=== PATIENT | female | born 1950 | race Caucasian/White ===

== ENCOUNTER 2018-12-21 22:54 | Outpatient (REF) | payer MEDICARE, SELFPAY ==
[2018-12-29 18:47] LABS: Methylphenidate 235 ng/mL; Ritalinic Acid >10000 ng/mL
== END 2018-12-21 23:14 ==
LOC: LBN 22:54
PROVIDERS: PCP Nurse Practitioner Family; Visit Provider Nurse Practitioner Family
DX: F90.9 Attention-deficit hyperactivity disorder, unspecified type (principal); Z51.81 Encounter for therapeutic drug level monitoring
CPT/HCPCS: 80360

== ENCOUNTER 2019-03-30 20:13 | Outpatient (REF) | payer MEDICARE, SELFPAY ==
[2019-03-30 21:04] LABS: Calculated LDL 128 mg/dL (<100); Cholesterol 186 mg/dL (<200); HDL Cholesterol 48 mg/dL (40-60); Triglyceride 54 mg/dL (<150)
== END 2019-03-30 20:33 ==
LOC: NCHCN 20:13
PROVIDERS: PCP Nurse Practitioner Family; Visit Provider Nurse Practitioner Family
DX: Z13.6 Encounter for screening for cardiovascular disorders (principal)
CPT/HCPCS: 80061

== ENCOUNTER 2019-07-26 19:16 | Outpatient (REF) | payer MEDICARE, SELFPAY ==
[2019-07-26 19:52] LABS: Iron 34 ug/dL (50-170); Total Iron Binding Capacity 294 ug/dL (250-450); Transferrin Sat 12 % (15-50)
[2019-07-26 20:17] LABS: Vitamin B12 372 pg/mL (193-986)
[2019-07-26 20:25] LABS: Abs Immature Grans 0.05 k/cumm (0.0-0.09); Absolute Basophil Count 0.03 k/cumm (0.0-0.2); Absolute Eosinophil Count 0.19 k/cumm (0.0-0.7); Absolute Lymphocyte Count 3.12 k/cumm (1.2-3.4); Absolute Monocyte Count 0.61 k/cumm (0.11-0.7); Absolute Neutrophil Count 6.19 k/cumm (1.2-6.7); Basophils % 0.3; Eosinophils % 1.9; HCT 41.2 % (36.0-46.0); HGB 13.5 g/dL (12.0-15.5); Immature Grans % 0.5 %; Lymphocytes % 30.6; Mean Corp. HGB Concentration 32.8 g/dL (32.0-36.0); Mean Corpuscular Hemoglobin 29.3 pg (27.0-33.0); Mean Corpuscular Volume 89.4 fL (80-95); Mean Platelet Volume 10.4 fL (8.0-11.0); Neutrophils % 60.7; Platelet Count 343 x1000/uL (130-400); RBC 4.61 m/cumm (4.00-5.20); RBC Distribution Width 13.3 % (11.7-14.6); White Blood Cell Count 10.19 k/cumm (4.4-10.8)
== END 2019-07-26 19:36 ==
LOC: NCHCN 19:16
PROVIDERS: PCP Nurse Practitioner Family; Visit Provider Nurse Practitioner Family
DX: R06.02 Shortness of breath (principal); Z86.2 Personal history of diseases of the blood and blood-forming organs and certain disorders involving the immune mechanism
CPT/HCPCS: 82607; 83540; 83550; 85025

== ENCOUNTER 2020-04-06 21:00 | Outpatient (REF) | payer MEDICARE, SELFPAY ==
[2020-04-06 19:24] LABS: Abs Immature Grans 0.08 10^3/uL (0.0-0.06); Absolute Lymphocyte Count 2.53 10^3/uL (1.2-3.4); Absolute Neutrophil Count 6.64 10^3/uL (1.2-6.7); HGB 14.3 g/dL (11.2-15.7); Immature Grans % 0.8; Lymphocytes % 25.4; MCH 29.1 pg (27.0-33.0); MCHC 32.5 % (32.0-36.0); MCV 89.6 fL (80-95); MPV 10.3 fL (8.0-11.0); Neutrophils % 66.8; Nucleated RBC 0 %; Platelet Count 309 10^3/uL (130-400); RBC 4.91 10^6/uL (3.93-5.22); RDW 13.1 % (11.7-14.6); RDW-SD 42.7 fL; WBC 9.95 10^3/uL (4.4-10.8)
[2020-04-06 19:47] LABS: Iron 56 ug/dL (50-170); Total Iron Binding Capacity 304 ug/dL (250-450); Transferrin Sat 18 % (15-50)
[2020-04-06 19:58] LABS: ALT 21 U/L (14-59); AST 14 U/L (15-37); Albumin 3.7 g/dL (3.4-5.0); Alkaline Phosphatase 70 U/L (46-116); BUN 25 mg/dL (7-18); Bilirubin, Total 0.3 mg/dL (0.2-1.0); C-Reactive Protein 0.47 mg/dL (0.0-0.3); Calcium 9.3 mg/dL (8.5-10.1); Chloride 107 mmol/L (98-107); Ferritin 136 ng/mL (8-252); Glucose 105 mg/dL (74-106); Potassium 3.9 mmol/L (3.5-5.1); Sodium 143 mmol/L (136-145); TSH (W/Ref FT4) 1.44 uIU/mL (0.36-3.74); Total Protein 6.5 g/dL (6.4-8.2)
[2020-04-08 16:51] LABS: Rheumatoid Factor <8.6 IU/mL (<12.0)
[2020-04-09 14:40] LABS: ANA Interpretation Negative (Negative)
== END 2020-04-06 21:01 | disposition home or self-care (01) ==
LOC: NCHCN 21:00
PROVIDERS: PCP Nurse Practitioner Family; Visit Provider Physician Assistant
DX: M60.9 Myositis, unspecified (principal); R42 Dizziness and giddiness
CPT/HCPCS: 80053; 82728; 83540; 83550; 84443; 85025; 86038; 86140; 86431

== ENCOUNTER 2021-03-04 16:42 | Outpatient (REF) | payer MEDICARE, SELFPAY ==
[2021-03-04 20:53] LABS: Abs Immature Grans 0.04 10^3/uL (0.0-0.06); Absolute Basophil Count 0.03 10^3/uL (0.0-0.2); Absolute Eosinophil Count 0.24 10^3/uL (0.0-0.7); Absolute Lymphocyte Count 2.58 10^3/uL (1.2-3.4); Absolute Monocyte Count 0.53 10^3/uL (0.1-0.8); Absolute Neutrophil Count 4.03 10^3/uL (1.2-6.7); Basophils % 0.4; Eosinophils % 3.2; HCT 42.3 % (36.0-46.0); HGB 13.7 g/dL (11.2-15.7); Immature Grans % 0.5; Lymphocytes % 34.6; MCH 28.2 pg (27.0-33.0); MCHC 32.4 % (32.0-36.0); MCV 87.2 fL (80-95); MPV 10.4 fL (8.0-11.0); Monocytes % 7.1; Neutrophils % 54.2; Nucleated RBC 0 %; Platelet Count 276 10^3/uL (130-400); RBC 4.85 10^6/uL (3.93-5.22); RDW 13.1 % (11.7-14.6); RDW-SD 41.1 fL; WBC 7.45 10^3/uL (4.4-10.8)
[2021-03-04 20:54] LABS: Bilirubin Negative (Negative); Blood Negative (Negative); Clarity Clear (Clear); Glucose Negative (Negative); Ketones Negative (Negative); Leukocyte Esterase Negative (Negative); Nitrite Negative (Negative); Specific Gravity 1.025 (1.005-1.025); Urobilinogen 0.2 EU/dL (Up TO 0.2)
[2021-03-06 16:48] LABS: COVID-19 RT-PCR UVMMC Result Negative (Negative)
== END 2021-03-04 16:43 | disposition home or self-care (01) ==
LOC: NCHCN 16:42
PROVIDERS: PCP Physician Assistant; Visit Provider Nurse Practitioner Family
DX: R35.0 Frequency of micturition (principal); R30.0 Dysuria; R06.02 Shortness of breath; Z20.822 Contact with and (suspected) exposure to COVID-19
CPT/HCPCS: U0003; 81003; 85025; 87086

== ENCOUNTER → 2021-04-08 09:05 | Outpatient (BNVA) | payer MEDICARE, SELFPAY | PROVIDERS: PCP Physician Assistant; Referring Provider Physician Assistant; Visit Provider Nurse Practitioner Gerontology | DX: N20.0 Calculus of kidney (principal); R30.0 Dysuria; R33.9 Retention of urine, unspecified | CPT/HCPCS: 81003; 99205 ==

== ENCOUNTER 2021-04-17 11:09 | Outpatient (REF) | payer MEDICARE, SELFPAY ==
[2021-04-22 14:16] LABS: Source: Passed Stone
== END 2021-04-17 11:10 | disposition home or self-care (01) ==
LOC: LBN 11:09
PROVIDERS: PCP Physician Assistant; Visit Provider Nurse Practitioner Gerontology
DX: N20.0 Calculus of kidney (principal)
CPT/HCPCS: 82365

== ENCOUNTER 2021-04-26 17:49 | Outpatient (CLI) | payer MEDICARE, SELFPAY ==
--- NOTE | 2021-04-26 | DI.CT_ITS ---
Exam(s) CT CHEST PE CTA EXAM: CT CHEST PE CTA CLINICAL HISTORY: SOB R06.02 CHEST PAIN R07.89 COUGH. TECHNIQUE: Imaging Protocol: Axial CT angiography was performed with multi-slice acquisition and mu lti-planar and/or 3D reconstructions. CONTRAST MATERIAL: Intravenous: Omnipaque 350 Contrast volume:100 mL COMPARISON: No exams were available for comparison FINDINGS: Tracheobronchial tree: Patent where visualized. Pulmonary parenchyma: No consolidation or dominant measurable mass. No architectural distortion. Pulmonary Arteries: No evidence of filling defect to suggest pulmonary emboli. Mediastinum and Ashley: No dominant adenopathy or fluid collection. The esophagus is unremarkable. Visualized thyroid gland: There are surgical clips in the right thyroid bed which may reflect a parti al thyroidectomy. Please correlate clinically. Pleura: No effusion or pneumothorax. Heart: The heart is not dilated. No coronary artery calcifications are seen. No pericardial effusion. Aorta: Thoracic aorta non-dilated. No evidence of dissection. Upper abdomen: Gallstones. Soft tissues: Unremarkable. Bones: Within normal limits for the patient's age. IMPRESSION: No evidence of pulmonary embolism, thoracic aortic dissection or aneurysm. RADIATION DOSE DELIVERED: 513.12mGy.cm Total DLP DATA REPOSITORY: All CT scans at this facility are submitted to the National Radiology Data Registry (NRDR) Dose Index Registry (DIR) with the [employer] (ACR). RADIATION OPTIMIZATION: All CT scans at this facility use at least one of these dose optimization te chniques: automated exposure control; mA and/or kV adjustment per patient size (includes targeted exa ms where dose is matched to clinical indication); or iterative reconstruction.
[2021-04-26 16:42] LABS: CREATININE 0.9 mg/dL (0.55-1.02)
== END 2021-04-26 18:09 ==
PROVIDERS: PCP Physician Assistant; Visit Provider Physician Assistant
DX: R06.02 Shortness of breath (principal); R07.89 Other chest pain
CPT/HCPCS: 71275; 82565

== ENCOUNTER 2021-05-02 01:26 | Outpatient (CLI) | payer MEDICARE, SELFPAY ==
--- NOTE | 2021-05-02 08:00 | DI.US_ITS ---
Exam(s) US RENAL EXAM: US RENAL CLINICAL HISTORY: ? hydro, d/t elevated PVR; monitoring stones,retention of urine,r33,9,n20.9 TECHNIQUE: Ultrasound performed using standard protocol. COMPARISON: No exams were available for comparison FINDINGS: Kidneys are normal in size and shape. There is no evidence of right hydronephrosis or nephrolithiasi s. Left kidney shows no evidence of hydronephrosis. There is an incidental 12 millimeters simple cyst o f the upper pole of the kidney. There is also an 8 millimeter echogenic focus of the upper pole of t he left kidney with posterior acoustic shadowing and twinkle artifact, consistent with a nonobstructi ng stone. No additional stone seen. Urinary bladder is unremarkable in appearance with pre and post void urinary bladder volume 236 cc an d 89 cc respectively. Ureteral jets were seen bilaterally. IMPRESSION: No evidence of urinary tract obstruction. Nonobstructing left upper pole renal calculus. DATA REPOSITORY:
== END 2021-05-02 01:46 ==
PROVIDERS: PCP Physician Assistant; Visit Provider Nurse Practitioner Gerontology
DX: N20.0 Calculus of kidney (principal); R33.9 Retention of urine, unspecified
CPT/HCPCS: 76770

== ENCOUNTER → 2021-05-09 12:58 | Outpatient (BNVA) | payer MEDICARE, SELFPAY | PROVIDERS: PCP Physician Assistant; Referring Provider Physician Assistant; Visit Provider Nurse Practitioner Gerontology | DX: N20.0 Calculus of kidney (principal) | CPT/HCPCS: 99214 ==

== ENCOUNTER 2021-08-09 14:35 | Outpatient (REF) | payer MEDICARE, SELFPAY ==
[2021-08-09 12:57] LABS: Abs Immature Grans 0.05 10^3/uL (0.0-0.06); Absolute Basophil Count 0.06 10^3/uL (0.0-0.2); Absolute Eosinophil Count 0.27 10^3/uL (0.0-0.7); Absolute Lymphocyte Count 2.81 10^3/uL (1.2-3.4); Absolute Monocyte Count 0.49 10^3/uL (0.1-0.8); Absolute Neutrophil Count 4.17 10^3/uL (1.2-6.7); Basophils % 0.8; Eosinophils % 3.4; HCT 44.5 % (36.0-46.0); HGB 14.4 g/dL (11.2-15.7); Immature Grans % 0.6; Lymphocytes % 35.8; MCH 28.9 pg (27.0-33.0); MCHC 32.4 % (32.0-36.0); MCV 89 fL (80-95); MPV 10.1 fL (8.0-11.0); Monocytes % 6.2; Neutrophils % 53.2; Platelet Count 291 10^3/uL (130-400); RBC 4.98 10^6/uL (3.93-5.22); RDW 13.1 % (11.7-14.6); RDW-SD 42.7 fL; WBC 7.85 10^3/uL (4.4-10.8)
[2021-08-09 13:14] LABS: TSH (W/Ref FT4) 1.71 uIU/mL (0.36-3.74)
[2021-08-12 09:18] LABS: IgE 23 IU/mL (<158)
== END 2021-08-09 14:36 | disposition home or self-care (01) ==
LOC: LBN 14:35
PROVIDERS: PCP Physician Assistant; Visit Provider Student in an Organized Health Care Education/Training Program
DX: R53.83 Other fatigue (principal); J45.909 Unspecified asthma, uncomplicated
CPT/HCPCS: 82785; 84443; 85025

== ENCOUNTER 2021-09-02 03:37 | Outpatient (CLI) | payer MEDICARE, SELFPAY ==
[2021-09-02] MEDS: Albuterol HFA 18 GM 200 PUFF INH IH (09:56)
[2021-09-02] MEDS: Inhaler, Assist Device 1 EACH MC (09:56)
--- NOTE | 2021-09-02 11:26 | W.PFT ---
Date of service: 09/02/21 Time of Service: 08:02 Pulmonary Function Test Result Requesting Provider Jose C Indications: Asthma Interpretation Spirometry: There is no airflow limitation. There is a significant bronchodilator response. Lung Volumes: Lung volumes are normal. Diffusion Capacity: Normal diffusion. Airway Pressure: Normal airways resistance. Impression Normal pulmonary function testing with a significant bronchodilator response. This could be consistent with asthma in the correct clinical context. Clinical Correlation therefore is recommended.
== END 2021-09-02 03:38 | disposition home or self-care (01) ==
LOC: RT 03:37
PROVIDERS: PCP Physician Assistant; Visit Provider Student in an Organized Health Care Education/Training Program
DX: J45.998 Other asthma (principal); R07.89 Other chest pain; R05.9 Cough, unspecified; Z87.891 Personal history of nicotine dependence; Z77.090 Contact with and (suspected) exposure to asbestos
CPT/HCPCS: 94060; 94726; 94729

== ENCOUNTER 2021-09-05 09:01 | Outpatient (REF) | payer MEDICARE, SELFPAY ==
[2021-09-05 21:01] LABS: ALT 30 U/L (14-59); AST 14 U/L (15-37); Alkaline Phosphatase 61 U/L (46-116); Anion Gap 9.1 mmol/L (3-11); BUN 19 mg/dL (7-18); Bilirubin, Total 0.5 mg/dL (0.2-1.0); CO2 26.9 mmol/L (21.0-32.0); CREATININE 0.9 mg/dL (0.55-1.02); Calcium 8.9 mg/dL (8.5-10.1); Chloride 108 mmol/L (98-107); Glucose 125 mg/dL (74-106); LDL CHOLESTEROL 74 mg/dL (<100); Potassium 3.7 mmol/L (3.5-5.1); Sodium 144 mmol/L (136-145); Total Protein 6.9 g/dL (6.4-8.2)
[2021-09-05 21:07] LABS: Hemoglobin A1C 5.8 % (<5.7)
== END 2021-09-05 09:02 | disposition home or self-care (01) ==
LOC: NCHCN 09:01
PROVIDERS: PCP Physician Assistant; Visit Provider Physician Assistant
DX: I10 Essential (primary) hypertension (principal); E78.5 Hyperlipidemia, unspecified; R73.03 Prediabetes
CPT/HCPCS: 80053; 83721; 83036

== ENCOUNTER → 2021-10-30 02:56 | Outpatient (CLI) | payer MEDICARE, SELFPAY ==
--- NOTE | 2021-10-30 07:15 | DI.US_ITS ---
Exam(s) US RENAL EXAM: US RENAL CLINICAL HISTORY: monitoring left renal stone, N20.0 NEPHROLITHIAISIS. TECHNIQUE: Merlos scale, color and spectral Doppler were used. COMPARISON: US US RENAL from 05/02/2021 FINDINGS: Renal size in cm: Right: 11.6. Left: 11.4. Echogenicity: Normal. Hydronephrosis: No. Cyst or mass: No. Nephrolithiasis: There is an echogenic 6 mm focus in the superior pole of the left kidney. Other findings: None. Bladder:Normal. Ureteral jets: Right: Not visualized on this examination. Left: Not visualized on this examination. Prevoid vol:151 cc Postvoid vol:94 cc Renal color flow: Symmetric and within normal limits. IMPRESSION: 1. Stable nonobstructing left upper pole renal calculus. 2. Moderate size postvoid urinary bladder volume. DATA REPOSITORY:
== END ==
PROVIDERS: PCP Physician Assistant; Visit Provider Nurse Practitioner Gerontology
DX: N20.0 Calculus of kidney (principal)
CPT/HCPCS: 76770

== ENCOUNTER → 2021-11-06 09:23 | Outpatient (BNVA) | payer MEDICARE, SELFPAY | PROVIDERS: PCP Physician Assistant; Referring Provider Physician Assistant; Visit Provider Nurse Practitioner Gerontology | DX: R33.8 Other retention of urine (principal); R35.1 Nocturia; N20.0 Calculus of kidney; R35.0 Frequency of micturition | CPT/HCPCS: 81003; 99214 ==

== ENCOUNTER 2021-11-06 20:05 | Outpatient (REF) | payer MEDICARE, SELFPAY | END 2021-11-06 20:06 | disposition home or self-care (01) | LOC: LBN 20:05 | PROVIDERS: PCP Physician Assistant; Visit Provider Nurse Practitioner Gerontology | DX: N39.0 Urinary tract infection, site not specified (principal) | CPT/HCPCS: 87086 ==

== ENCOUNTER 2021-11-07 15:35 | Outpatient (REF) | payer MEDICARE, SELFPAY ==
[2021-11-07 20:24] LABS: NT-proBNP 120 pg/mL (<300); Troponin I < 50 ng/L (<or=60)
== END 2021-11-07 15:36 | disposition home or self-care (01) ==
LOC: NCHCN 15:35
PROVIDERS: PCP Physician Assistant; Visit Provider Physician Assistant
DX: R06.09 Other forms of dyspnea (principal)
CPT/HCPCS: 83880; 84484

== ENCOUNTER 2022-04-29 02:16 | Outpatient (CLI) | payer MEDICARE, SELFPAY ==
--- NOTE | 2022-04-29 06:30 | DI.US_ITS ---
Exam(s) US RENAL EXAM: US RENAL CLINICAL HISTORY: monitoring hydro,urine retention,lt calculi,r33.9,n20.0 TECHNIQUE: Ultrasound of both kidneys performed using standard protocol. COMPARISON: CT CT CHEST PE CTA from 04/26/2021 US US RENAL from 10/30/2021 FINDINGS: RIGHT KIDNEY: Measures 11.3 cm in length. There is a small 1.6 x 1.5 cm cyst towards the upper pole. No echogenic calculi. No hydronephrosis. Cortical thickness is normal. Normal cortical thickness and corticomed ullary differentiation .No solid masses No intrarenal calculi nor hydronephrosis. LEFT KIDNEY: Measures 10.6 cm in length. There is a 1.7 x 1.4 cm cyst in the lower pole left kidney. There is al so a 6 millimeter echogenic nonobstructive calculus in the upper pole calyx and a 7 millimeter nonobs tructive calculus in a mid lower calyx evident. Cortical thickness normal. No perinephric fluid. N o solid masses. URINARY BLADDER: Prevoid volume is 158 cc Postvoid volume is 75 cc No evidence of bladder mass nor diverticuli. Ureterovesical jets: Both identified and appear symmetrical IMPRESSION: 1. Small cysts both kidneys. There are 2 nonobstructive calculi in left kidney superior and inferio r pole measuring 6 and 7 millimeters, respectively. No obstruction. No calculi nor obvious masses i n the urinary bladder. 2. Incidentally noted is a benign in the liver which measures 3.5 x 3.7 cm.. DATA REPOSITORY:
== END 2022-04-29 02:36 ==
LOC: DI 02:17
PROVIDERS: PCP Physician Assistant; Visit Provider Nurse Practitioner Gerontology
DX: N20.0 Calculus of kidney (principal); R33.9 Retention of urine, unspecified; N28.1 Cyst of kidney, acquired
CPT/HCPCS: 76770

== ENCOUNTER → 2022-05-06 08:33 | Outpatient (BNVA) | payer MEDICARE, SELFPAY | PROVIDERS: PCP Physician Assistant; Visit Provider Nurse Practitioner Gerontology | DX: R33.9 Retention of urine, unspecified (principal); N20.0 Calculus of kidney | CPT/HCPCS: 99214 ==

== ENCOUNTER 2022-09-03 16:39 | Outpatient (REF) | payer MEDICARE, SELFPAY ==
[2022-09-03 20:25] LABS: ESR 14 mm/hr (0-30)
[2022-09-03 20:26] LABS: Abs Immature Grans 0.04 10^3/uL (0.0-0.06); Absolute Basophil Count 0.04 10^3/uL (0.0-0.2); Absolute Eosinophil Count 0.11 10^3/uL (0.0-0.7); Absolute Lymphocyte Count 2.83 10^3/uL (1.2-3.4); Absolute Monocyte Count 0.68 10^3/uL (0.1-0.8); Absolute Neutrophil Count 6.24 10^3/uL (1.2-6.7); Basophils % 0.4; Eosinophils % 1.1; HCT 44.1 % (36.0-46.0); HGB 14.4 g/dL (11.2-15.7); Immature Grans % 0.4; Lymphocytes % 28.5; MCH 29.3 pg (27.0-33.0); MCHC 32.7 % (32.0-36.0); MCV 90 fL (80-95); Monocytes % 6.8; Neutrophils % 62.8; Platelet Count 289 10^3/uL (130-400); RBC 4.91 10^6/uL (3.93-5.22); RDW-SD 42.6 fL; WBC 9.94 10^3/uL (4.4-10.8)
[2022-09-03 20:50] LABS: Hemoglobin A1C 5.5 % (<5.7)
[2022-09-03 21:03] LABS: ALT 21 U/L (14-59); AST 20 U/L (15-37); Albumin 3.8 g/dL (3.4-5.0); Alkaline Phosphatase 82 U/L (46-116); Anion Gap 9.6 mmol/L (3-11); BUN 17 mg/dL (7-18); Bilirubin, Total 0.3 mg/dL (0.2-1.0); C-Reactive Protein 0.62 mg/dL (0.0-0.3); CO2 26.4 mmol/L (21.0-32.0); CREATININE 1.1 mg/dL (0.55-1.02); Calcium 9.3 mg/dL (8.5-10.1); Chloride 109 mmol/L (98-107); Estimated GFR 54.39 (mL/min/1.73m2); Glucose 103 mg/dL (74-106); Magnesium 2.3 mg/dL (1.8-2.4); Sodium 145 mmol/L (136-145); TSH (W/Ref FT4) 3.03 uIU/mL (0.36-3.74); Total Protein 7.1 g/dL (6.4-8.2)
== END 2022-09-03 16:40 | disposition home or self-care (01) ==
LOC: NCHCN 16:39
PROVIDERS: PCP Physician Assistant; Visit Provider Physician Assistant
DX: K52.9 Noninfective gastroenteritis and colitis, unspecified (principal); R25.1 Tremor, unspecified; R26.89 Other abnormalities of gait and mobility; M79.18 Myalgia, other site; E07.89 Other specified disorders of thyroid; R73.03 Prediabetes
CPT/HCPCS: 80053; 85652; 83036; 83735; 84443; 85025; 86140

== ENCOUNTER → 2022-12-17 01:10 | Outpatient (CLI) | payer MEDICARE, SELFPAY ==
--- NOTE | 2022-12-17 07:45 | DI.US_ITS ---
Exam(s) US RENAL EXAM: US RENAL CLINICAL HISTORY: monitoring left renal calculi,nephrolithiasis,n20.0,r33.9,urine retention TECHNIQUE: Ultrasound of both kidneys performed using standard protocol. COMPARISON: US US RENAL from 04/29/2022 FINDINGS: RIGHT KIDNEY: Measures 10.8 cm in length. No cysts evident. Normal cortical thickness and corticomedullary differen tiation .No solid masses No intrarenal calculi nor hydronephrosis. LEFT KIDNEY: Measures 10.7 cm in length. There is a 1.4 x 1.2 cm cyst in the in inferior pole of the left kidney. Normal cortical thickness and corticomedullary differentiaion. No solids masses. There is a 9 mill imeter hyperechoic focus in the mid-upper pole region consistent with nonobstructive calculus. URINARY BLADDER: Prevoid volume is 370 cc Postvoid volume is 166 cc No evidence of bladder mass nor diverticuli. Ureterovesical jets: Both not well visualized Incidental finding: There is a cyst in the right hepatic lobe which measures 3.6 x 3.2 cm. IMPRESSION: 1. No significant findings in the right kidney. 2. Nonobstructive 9 mm calculus in the mid-upper pole region of the left kidney. There is a small b enign cyst in the inferior pole the left kidney also noted.. No solid renal masses. 3. No bladder masses evident. Postvoid volume is 166 cc. 4. Incidentally noted is a cyst in the right hepatic lobe measuring 3.6 x 3.2 cm. DATA REPOSITORY:
== END ==
PROVIDERS: PCP Physician Assistant; Visit Provider Nurse Practitioner Gerontology
DX: N20.0 Calculus of kidney (principal); R33.8 Other retention of urine; R35.0 Frequency of micturition; N39.0 Urinary tract infection, site not specified
CPT/HCPCS: 76770; 99442

== ENCOUNTER → 2022-12-29 07:47 | Outpatient (BNVA) | payer MEDICARE, SELFPAY | PROVIDERS: PCP Physician Assistant; Referring Provider Physician Assistant; Visit Provider Physician Assistant Surgical | DX: J45.909 Unspecified asthma, uncomplicated (principal); Z79.51 Long term (current) use of inhaled steroids | CPT/HCPCS: 99443 ==

== ENCOUNTER 2023-01-05 07:47 | Day surgery (SDC) | payer MEDICARE, SELFPAY ==
[2023-01-05] VITALS (15 sets, daily range): BP systolic 111–184; BP diastolic 68–109; PULSE 67–97; RESP 10–25; TEMP 36.2–36.9; O2SAT 86–99; BMI 34.2
[2023-01-05] MEDS: Lactated Ringers 1,000 ML 80 ML IV ×2 (09:11→20:35)
--- NOTE | 2023-01-05 09:56 | W.ANESPRE ---
General Info Date of Service Date Performed: 01/05/23 Height: 5 ft 10 in Weight: 108.2 kg Body Mass Index (BMI): 34.2 Surgical Procedure: Operation Date: 01/05/23 11:10 Proposed Procedure Side Surgeon p Cystoscopy/Retrograde/Ureteroscopy/Stone Manipulation/ ? Stent Tom Orozco MD Meds Allergies and Home Medications Allergies Allergy/AdvReac Type Severity Reaction Status Date / Time prednisone Allergy Unknown Verified 01/05/23 08:24 adhesive tape Allergy Unverified 01/05/23 08:24 cephalexin Allergy Unverified 01/05/23 08:24 gentamicin Allergy Unverified 01/05/23 08:24 hydrogen peroxide Allergy Unverified 01/05/23 08:24 nitrofurantoin Allergy Unverified 01/05/23 08:24 [From Macrodantin] sulfamethoxazole Allergy Unverified 01/05/23 08:24 [From Bactrim] trimethoprim [From Bactrim] Allergy Unverified 01/05/23 08:24 moderna vaccine Allergy Severe Uncoded 01/05/23 08:24 Home Medication Medication Instructions Recorded aspirin 81 mg tablet,delayed 81 mg PO DAILY 03/06/21 release (Adult Aspirin Regimen) epinephrine 0.3 mg/0.3 mL 0.3 mg IM Q4H PRN 03/06/21 injection, auto-injector (EpiPen) norethindrone (contraceptive) 0.35 2.5 mg PO .5xweek 04/08/21 mg tablet dupilumab 300 mg/2 mL subcutaneous 600 mg (4 mL) subcut ONCE #4 mL 12/25/21 pen injector (Dupixent) dupilumab 300 mg/2 mL subcutaneous 300 mg (2 mL) subcut Q2W #12 mL 01/28/22 pen injector (Dupixent) cetirizine 10 mg capsule (All Day 10 mg PO BID 09/11/22 Allergy (cetirizine)) iodine 150 mcg tablet 150 mcg PO DAILY 09/11/22 polysaccharide iron complex 150 mg 150 mg PO .4 a day 09/11/22 iron capsule budesonide-formoterol HFA 80 1 inh inhalation BID #10.2 grams 12/29/22 mcg-4.5 mcg/actuation aerosol inhaler (Symbicort) indomethacin 25 mg capsule 25 mg PO BID PRN 12/29/22 magnesium glycinate 100 mg tablet 1,000 mg PO BID 12/29/22 Current Visit Medications: Current Medications Generic Name Dose Route Start Last Admin Trade Name Sameer PRN Reason Stop Dose Admin Ringer's Solution 1,000 mls @ 80 mls/hr 01/05/23 06:00 01/05/23 09:11 IV 01/05/23 23:59 80 mls/hr INFUSION ALON Administration Ciprofloxacin 400 mg in 200 mls @ 200 mls/hr 01/05/23 06:00 Cipro I.V. IVPB 01/05/23 16:00 PREOP ALON IV Miscellaneous Supplies 1 each 01/05/23 06:00 Iv Access IV 01/05/23 23:59 DIRECTED ALON Sodium Chloride 0 ml 01/05/23 06:00 Normal Saline Flush 10 Ml Syr IV 01/05/23 23:59 PRN PRN Sodium Chloride 0 ml 01/05/23 06:00 Normal Saline 10 Ml Vial IJ 01/05/23 23:59 DIRECTED PRN Sterile Water 0 ml 01/05/23 06:00 Water,Injection,Sterile 10 Ml Vial IJ 01/05/23 23:59 DIRECTED PRN PFSH Active Problems Active Problems: Problem Status Onset Code Fatigue R53.83 Muscle cramping R25.2 Retention of urine R33.9 Allergic rhinitis due to pollen J30.1 Chest pain R07.9 Cough R05.9 Allergic asthma J45.909 Nephrolithiasis N20.0 Environmental allergies Z91.09 Medical History Medical History (Updated 01/02/23 @ 10:29 by Denny Baron) Osteoarthritis ADHD Pt. denies Hypomagnesemia Heart murmur Anemia Liver nodule Onychomycosis Vertigo Resting tremor Arthralgia Prediabetes HTN (hypertension) HLD (hyperlipidemia) Hot flashes SOB (shortness of breath) Dysuria Urinary frequency Dysfunctional voiding of urine Cholelithiasis pt. denies Disc degeneration Surgical History Surgical History (Updated 01/05/23 @ 08:22 by Live Gordillo) History of appendectomy History of lobectomy of thyroid Tobacco Smoking/Tobacco Use Status: Former Tobacco Use Alcohol Alcohol Intake: never Substance Use Substance use: Never Substance use type: does not use Vital Signs and Lab Results Vital Signs Most Recent Vital Signs in EMR: Most Recent Vital Signs Temp Pulse Resp BP Pulse Ox 36.4 C L 97 H 16 145/98 H 99 01/05/23 08:25 01/05/23 08:25 01/05/23 08:25 01/05/23 08:25 01/05/23 08:25 Lab Results Blood Type / Crossmatch: No Data to Display Complete Blood Count: No Data to Display Complete Metabolic Panel: No Data to Display Liver Function Panel: No Data to Display Coagulation Panel: No Data to Display Cardiac Panel: No Data to Display Arterial Blood Gas: No Data to Display Venous Blood Gas: No Data to Display Pancreas Panel: No Data to Display Thyroid Panel: No Data to Display Infectious Disease: No Data to Display Blood Cultures: No Data to Display Toxicology Panel: No Data to Display Imaging and Studies Imaging and Studies Study information below may be from another EMR and interpreted by another provider. Please see original notes in EMR for more complete details. Stress Test Summary: 11/14: negative stress echo. LVEF 65%, mild to moderate diastolic dysfunction. mild . Pulmonary Function Summary: 09/13: normal PFTs. Anesthesia Assessment and Plan Anesthesia History Personal History: No History of Anesthesia Complications Family History: No Family History of Anesthesia Complications Exercise Tolerance Exercise Tolerance: Metabolic Equivalents>4 Cardiac & Pulmonary Exam Cardiac Exam: Normal S1/S2 Heart Sounds Pulmonary Exam: Clear Bilateral Breath Sounds Implantable Cardiac Device Does patient have a Pacemaker or an ICD?: No Airway Exam Known Difficult Airway: No Mallampati Class: 3 Mouth Opening: Normal (> 3cm) Thyromental Distance: Greater than 3 cm Neck Range of Motion: Full ROM Neck Circumference: Normal Teeth Condition: Normal Dentition ASA Classification ASA Score: ASA 2 Emergency Case?: No NPO Status NPO Status: NPO Clears >2 hours, Solids >8 hours Anesthesia Plan Resuscitation Status: Full Code Anesthesia Technique: General Anesthesia Airway Planned: LMA Monitors Used: Standard Monitors Preoperative Comments:: 72 yo female for cysto, stones. Sig PMHx: HTN, severe allergic asthma/eosinophil asthma (Symbicort, dupilumab - has been very well controlled with this on board), ADHD (denies), preDM (09/14 A1c 5.5), vertigo. former smoker, never EtOh. denies GERD
--- NOTE | 2023-01-05 11:12 | W.PM.HP.N ---
Date of service: 01/05/23 Time of Service: 11:12 Assessment and Plan Assessment and plan (1) Nephrolithiasis: Status: Chronic Assessment and plan: We will plan to do left ureteroscopy with holmium laser lithotripsy of her stone. History of Present Illness History of Present Illness Chief Complaint: Kidney stone Narrative: This is a 72-year-old woman who has a history of a left kidney stone. She is not having flank pain, but we have been monitoring her stones radiographically. Her stone is increased in size and she is elected to move ahead with ureteroscopy and holmium laser lithotripsy of her stone. She has not seen any gross hematuria. She has no dysuria, fevers or chills. Review of Systems Narrative: No fevers or chills Allergic rhinitis. No vision change or dysphasia No diabetes or thyroid No shortness of breath, cough or hemoptysis No chest pain or palpitations No nausea, vomiting, hepatitis, ulcers, jaundice, diarrhea or constipation No seizures, strokes or peripheral neuropathy No bleeding disorders or anemia No gout PFSH All Active Problems (Updated 01/02/23 @ 10:29 by Denny Baron) Fatigue (Acute) Muscle cramping (Acute) Retention of urine (Acute) Allergic rhinitis due to pollen (Acute) Chest pain (Acute) Cough (Acute) Allergic asthma (Acute) Nephrolithiasis (Chronic) Environmental allergies (Acute) Medical History (Updated 01/02/23 @ 10:29 by Denny Baron) Osteoarthritis ADHD Pt. denies Hypomagnesemia Heart murmur Anemia Liver nodule Onychomycosis Vertigo Resting tremor Arthralgia Prediabetes HTN (hypertension) HLD (hyperlipidemia) Hot flashes SOB (shortness of breath) Dysuria Urinary frequency Dysfunctional voiding of urine Cholelithiasis pt. denies Disc degeneration Surgical History (Updated 01/05/23 @ 08:22 by Live Gordillo) History of appendectomy History of lobectomy of thyroid Social History Smoking/Tobacco Use Status: Former Tobacco Use Quit Date: 02/23/79 Smoking risk assessment performed?: Yes Alcohol Intake: never Drug use: Never Substance use type: does not use Housing: house Do you feel safe at home: Yes Do you feel safe in your relationship?: Yes Meds Allergies and Home Medications Allergies Allergy/AdvReac Type Severity Reaction Status Date / Time prednisone Allergy Unknown Verified 01/05/23 08:24 adhesive tape Allergy Unverified 01/05/23 08:24 cephalexin Allergy Unverified 01/05/23 08:24 gentamicin Allergy Unverified 01/05/23 08:24 hydrogen peroxide Allergy Unverified 01/05/23 08:24 nitrofurantoin Allergy Unverified 01/05/23 08:24 [From Macrodantin] sulfamethoxazole Allergy Unverified 01/05/23 08:24 [From Bactrim] trimethoprim [From Bactrim] Allergy Unverified 01/05/23 08:24 moderna vaccine Allergy Severe Uncoded 01/05/23 08:24 Home Medications Medication Instructions Recorded Confirmed Type aspirin 81 mg tablet,delayed 81 mg PO DAILY 03/06/21 01/02/23 History release (Adult Aspirin Regimen) epinephrine 0.3 mg/0.3 mL 0.3 mg IM Q4H PRN 03/06/21 01/02/23 History injection, auto-injector (EpiPen) norethindrone (contraceptive) 0.35 2.5 mg PO .5xweek 04/08/21 01/02/23 History mg tablet dupilumab 300 mg/2 mL subcutaneous 600 mg (4 mL) subcut ONCE #4 mL 12/25/21 01/02/23 Rx pen injector (Dupixent) dupilumab 300 mg/2 mL subcutaneous 300 mg (2 mL) subcut Q2W #12 mL 01/28/22 12/29/22 Rx pen injector (Dupixent) cetirizine 10 mg capsule (All Day 10 mg PO BID 09/11/22 01/02/23 History Allergy (cetirizine)) iodine 150 mcg tablet 150 mcg PO DAILY 09/11/22 01/02/23 History polysaccharide iron complex 150 mg 150 mg PO .4 a day 09/11/22 01/02/23 History iron capsule budesonide-formoterol HFA 80 1 inh inhalation BID #10.2 grams 12/29/22 01/02/23 Rx mcg-4.5 mcg/actuation aerosol inhaler (Symbicort) indomethacin 25 mg capsule 25 mg PO BID PRN 12/29/22 01/02/23 History magnesium glycinate 100 mg tablet 1,000 mg PO BID 12/29/22 01/02/23 History Exam Const General: cooperative Neck Neck: supple Resp Effort & Inspection: normal respiratory effort Auscultation: clear to auscultation bilaterally Cardio Rate: regular rate Rhythm: regular rhythm GI Palpation: soft and no masses Neuro General: patient alert, patient awake and patient oriented x3 Results Last Vital Signs Temp 36.4 C L 01/05/23 08:25 Pulse 97 H 01/05/23 08:25 Resp 16 01/05/23 08:25 BP 145/98 H 01/05/23 08:25 Pulse Ox 99 01/05/23 08:25 Time Spent Time spent with Patient: <40 minutes Time was spent: other
[2023-01-05] MEDS: levoFLOXacin 500 MG TAB PO (11:42)
[2023-01-05] MEDS: Lidocaine 2% Jelly 6 ML SYR (12:08)
[2023-01-05] MEDS: Omnipaque 300 MG/ML 50 ML BTL (12:25)
--- NOTE | 2023-01-05 12:25 | DI.RAD_ITS ---
Exam(s) XR RETROGRADE IN OR EXAM: XR RETROGRADE IN OR CLINICAL HISTORY: Nephrolithiasis. TECHNIQUE: 2D digital imaging was performed. COMPARISON: No exams were available for comparison FINDINGS: Fluoroscopy provided during retrograde procedure left kidney and placement of a left ureteral stent. See procedure report for details. Total fluoroscopy time 35 seconds IMPRESSION: Radiation exposure index/cumulative dose: betty Coughlin= 9.6745 mGy DATA REPOSITORY: RADIATION DOSE DELIVERED:
--- NOTE | 2023-01-05 12:29 | ROE_ITS ---
Date of service: 01/05/23 Time of Service: 12:29 Operative Note Operative Note DATE OF PROCEDURE: 01/05/23 PRE-OP DIAGNOSIS: Left kidney stone PROCEDURE: cystoscopy, left retrograde pyelogram, left flexible ureteroscopy with holmium laser lithotripsy, extraction of stone fragments, insert left ureteral stent SURGEON: Tom Orozco ANESTHESIA TYPE: General LMA/ETT Refer to Anesthesia Record ESTIMATED BLOOD LOSS: 0 PATHOLOGY: other (kidney stone for chemical analysis) COMPLICATIONS: None Patient was transported to: PACU Patient's condition: stable Implants: 4.8 Indonesian by 22 to 30 cm left ureteral stent Indications: This is a 72-year-old woman who has a history of a left kidney stone. The stone has been increasing in size and she presents now for stone manipulation. Findings: stone in left upper pole calyx Procedure Description: The patient was given preoperative oral antibiotics and brought to the operating room on 01/05/2023. After successful induction of general anesthesia, she was placed in the dorsal lithotomy position. Her genitalia was prepped and draped sterilely. 2% Xylocaine jelly was instilled into the urethra to act as a local anesthetic. A 22 Indonesian rigid cystoscope was passed through the urethra into the bladder. The bladder was inspected with a 30 degree lens. Both ureteral orifices appeared normal with no blood coming from either side. The left orifice was cannulated with a 5 Indonesian access catheter. Retrograde pyelogram was obtained by injecting Omnipaque through the access catheter under fluoroscopic guidance. There appeared to be a nonobstructing filling defect in the left upper pole. A guidewire was passed through the lumen of the catheter and the catheter was removed leaving the wire in place. A dual-lumen catheter was then positioned and a second wire was placed. We chose one of the wires as a working wire and the other as a safety wire. The ureteral access sheath was advanced over the working wire. The tip of the sheath was placed in the proximal left ureter. Flexible ureteroscopy was then performed and we visualized a stone in the upper pole calyx. The stone was treated with a 272 ?m holmium laser fiber. The power setting at the stone was 0.8 and the rate was 8. The stone fragmented quite nicely. I was then able to grasp multiple fragments and extract them. The stone fragments were sent to pathology for chemical analysis. At the completion of the procedure, there were no stone fragments larger than the size of the safety wire. We elected to place a ureteral stent. We removed the access sheath and passed a 4.8 Indonesian variable length stent over the wire. We position the proximal end in the renal pelvis and the distal end within the bladder. We left the safety string attached and brought the string through the urethra. We tucked the end of the string into the patient's vaginal cavity. The patient tolerated this procedure well with no complications.
[2023-01-05] MEDS: fentaNYL 100 MCG/2 ML VIAL IVP ×3 (12:59→13:37)
[2023-01-05] MEDS: Ketorolac 15 MG/ML VIAL IVP (13:30)
--- NOTE | 2023-01-05 13:35 | W.ANESPOSTOP ---
Postoperative Evaluation Date, Time and Location Date Performed: 01/05/23 Time Performed: 13:35 Patient Location: PACU Vital Signs Most Recent Imported Vital Signs: Most Recent Vital Signs Temp Pulse Resp BP Pulse Ox 36.5 C 70 11 L 173/93 H 95 01/05/23 13:12 01/05/23 13:12 01/05/23 13:12 01/05/23 13:12 01/05/23 13:12 Pain Score Most Recent Pain Score: Most Recent Pain Score Pain Level 7 01/05/23 13:12 Assessment Mental Status: Awake (Alert & Oriented to Patient Baseline) Airway and Respiratory Function: Patent airway with normal (patient baseline) respiratory exam Cardiovascular Function: Hemodynamically Stable Hydration Status: Adequately Hydrated Nausea & Vomiting: No Nausea or Vomiting Pain: Pain is tolerable per patient Peripheral Nerve Block: Patient did not receive a nerve block
[2023-01-05] MEDS: Acetaminophen 325 MG TAB 650 MG PO ×2 (15:06→19:08)
[2023-01-05] MEDS: Oxybutynin 5 MG TAB PO ×2 (15:06→23:21)
[2023-01-05] MEDS: Tamsulosin 0.4 MG CAPCR PO (16:29)
[2023-01-05] MEDS: Budesonide/Formoterol 80/4.5 6.9 GM 60 PUFF INH IH (18:30)
[2023-01-06] MEDS: Acetaminophen 325 MG TAB 650 MG PO (06:12)
--- NOTE | 2023-01-06 07:15 | W.PM.PROGNOT ---
Date of Service Date of service: 01/06/23 Time of Service: 07:16 Assessment and Plan Assessment and plan (1) Nephrolithiasis: Status: Chronic Assessment and plan: She is ready for discharge. We will send her home with prescriptions for oral ketorolac and oxybutynin. She will follow-up later this week for stent removal. I will then see her in 6 to 8 weeks for a renal ultrasound and to discuss her stone composition. Subjective Subjective Interval history since last seen: She required some narcotic analgesics overnight. She is feeling better this morning. She does have some ureteral spasms but they were well controlled with oxybutynin. Exam Narrative Exam Narrative: She appears comfortable Her vital signs are documented elsewhere She is awake and alert Objective Last Vital Signs Temp 36.7 C 01/05/23 23:20 Pulse 74 01/05/23 23:20 Resp 18 01/05/23 23:20 BP 125/72 01/05/23 23:20 Pulse Ox 94 01/05/23 23:20 Time Spent with Patient Time Spent with Patient: <25 minutes Time was spent: other
[2023-01-06 07:16] VITALS: BP 124/56; PULSE 76; RESP 18; TEMP 36.7; O2SAT 97
--- NOTE | 2023-01-06 07:18 | W.PM.DS.N ---
Date of service: 01/06/23 Time of Service: 07:18 DS: Diagnosis Discharge Diagnosis (1) Nephrolithiasis: Status: Chronic Discharge Plan Disposition Patient Disposition: Home Condition: Stable Discharge Details Reason For Visit: ureteroscopy Attending Provider: Tom Orozco Primary Care Provider: Lidia Clay Home Meds and New Rx's Prescriptions: New oxybutynin chloride 5 mg tablet 5 mg PO TID PRN (Reason: spasm) Qty: 15 0RF ketorolac 10 mg tablet 10 mg PO Q8H PRN (Reason: pain) 3 Days Qty: 9 0RF Rx Instructions: do not take with indomethacin or other NSAIDS No Action polysaccharide iron complex 150 mg iron capsule 150 mg PO .4 a day iodine 150 mcg tablet 150 mcg PO DAILY All Day Allergy (cetirizine) 10 mg capsule 10 mg PO BID budesonide-formoterol [Symbicort] 80-4.5 mcg/actuation HFA aerosol inhaler 1 inh inhalation BID Qty: 10.2 6RF Rx Instructions: To use as SMART therapy. up to 6 doses (12 puffs) a day indomethacin 25 mg capsule 25 mg PO BID PRN Rx Instructions: administer with food or milk epinephrine [EpiPen] 0.3 mg/0.3 mL auto-injector 0.3 mg IM Q4H PRN aspirin [Adult Aspirin Regimen] 81 mg tablet,delayed release (DR/EC) 81 mg PO DAILY Dupixent Pen 300 mg/2 mL pen injector 600 mg subcut ONCE Qty: 4 0RF Dupixent Pen 300 mg/2 mL pen injector 300 mg subcut Q2W Qty: 12 4RF magnesium glycinate 100 mg tablet 1,000 mg PO BID norethindrone acetate 5 mg tablet 2.5 mg PO .5 times a week Patient Comments: TAKE 1/2 TABLET BY MOUTH 5 TIMES A WEEK Discharge Instructions Additional Instructions: No need to strain the urine Follow-up later this week for stent removal-please let my office know that there is a string on the patient's stent Follow-up appointment in my office in 6 to 8 weeks with a renal ultrasound to be done in the office. Activity:: Activity as Tolerated Shower/Bathe:: 24 hours Diet:: As Tolerated Discharge Orders Discharge Orders: Discharge Order (Routine); Ordered 01/06/23 Ordered By: Tom Orozco DS: Summary Time Spent with Patient providing and/or coordinating discharge services: Less than 30 minutes Status at Discharge Functional status at discharge: independent ambulation Overall status at discharge: patient is back to baseline Mental Status: mental status grossly normal Speech and Movement: speech and movement normal Mood: congruent mood Affect: normal affect Exam Narrative Exam Narrative: On the morning of disc charge, the patient looked well Her vital signs are documented elsewhere in the chart Her chest wall motion is normal. She is not short of breath at rest. Her abdomen is soft with no guarding or rebound tenderness She is awake and alert. Psych Mental Status: mental status grossly normal Speech and Movement: speech and movement normal Mood: congruent mood Affect: normal affect DS: Data Vitals/I&O Vitals and I&O: Vital Signs Temperature 36.7 C 01/05/23 23:20 Temperature Source Tympanic 01/05/23 23:20 Pulse 74 01/05/23 23:20 Pulse Rhythm Regular 01/05/23 22:22 Respiratory Rate 18 01/05/23 23:20 Respiratory Effort Normal, Non-Labored 01/05/23 22:22 Respiratory Depth Normal 01/05/23 22:22 Respiratory Pattern Normal 01/05/23 22:22 Blood Pressure 125/72 01/05/23 23:20 Pulse Oximetry 94 01/05/23 23:20 Respiratory End-tidal CO2 41 01/05/23 13:53 Oxygen Delivery Method Room Air 01/05/23 23:20 Oxygen Flow Rate 0 01/05/23 23:20 Pain Level 7 01/05/23 15:00 Intake & Output 01/05/23 01/05/23 01/06/23 11:59 23:59 11:59 Intake Total 1000.000 / 1000.000 400 / 400 Balance 1000.000 / 1000.000 400 / 400 Weight 108.2 kg 108.2 kg Intake: IV 1000.000 / 1000.000 Oral 400 / 400 Other: Urine Appearance Clear Urine Odor None Comment unmeasured void unmeasured void Emesis Description None Voiding Methods Toilet Toilet Data Completed and Pending Labs on day of discharge: Labs from last 24 hours 01/05/23 12:20 Stone Source Pending Stone Comment Pending Kidney Stone Analysis Pending [facility] All Active Problems Fatigue (Acute) Muscle cramping (Acute) Retention of urine (Acute) Allergic rhinitis due to pollen (Acute) Chest pain (Acute) Cough (Acute) Allergic asthma (Acute) Nephrolithiasis (Chronic) Environmental allergies (Acute) Medical History Osteoarthritis ADHD Pt. denies Hypomagnesemia Heart murmur Anemia Liver nodule Onychomycosis Vertigo Resting tremor Arthralgia Prediabetes HTN (hypertension) HLD (hyperlipidemia) Hot flashes SOB (shortness of breath) Dysuria Urinary frequency Dysfunctional voiding of urine Cholelithiasis pt. denies Disc degeneration Surgical History History of ureteroscopy History of appendectomy History of lobectomy of thyroid Social History Smoking/Tobacco Use Status: Former Tobacco Use Quit Date: 02/23/79 Smoking risk assessment performed?: Yes Alcohol Intake: never Drug use: Never Substance use type: does not use Housing: house Do you feel safe at home: Yes Do you feel safe in your relationship?: Yes Time Spent with Patient Time Spent with Patient: <45 minutes Time was spent: preparing to see the patient(eg.review tests), counseling the patient and other
[2023-01-06] MEDS: Budesonide/Formoterol 80/4.5 6.9 GM 60 PUFF INH IH (07:45)
[2023-01-06] MEDS: Aspirin E.C. 81 MG TABEC PO (08:20)
[2023-01-06] MEDS: Cetirizine 10 MG TAB PO (08:20)
[2023-01-08 20:20] LABS: Source: Left Kidney
== END 2023-01-06 11:01 | disposition home or self-care (01) ==
LOC: SUR 07:49 → MS 14:18
PROVIDERS: PCP Physician Assistant; Visit Provider Urology
PROC: (CPT 52356; principal; 2023-01-05 11:00)
DX: N20.0 Calculus of kidney (principal); I10 Essential (primary) hypertension; E78.5 Hyperlipidemia, unspecified; D64.9 Anemia, unspecified; R73.03 Prediabetes
CPT/HCPCS: 52356; 94640; 74420; 82365; 94664; G0378; J1885; J2001; J2250; J2405; J3010; Q9967

== ENCOUNTER → 2023-04-06 13:38 | Outpatient (BNVA) | payer MEDICARE, SELFPAY | PROVIDERS: PCP Physician Assistant; Referring Provider Physician Assistant; Visit Provider Podiatrist | DX: B35.3 Tinea pedis; G62.9 Polyneuropathy, unspecified; R79.89 Other specified abnormal findings of blood chemistry; B35.1 Tinea unguium; T33.821S Superficial frostbite of right foot, sequela; T33.822S Superficial frostbite of left foot, sequela | CPT/HCPCS: 99214 ==

== ENCOUNTER → 2023-04-14 09:16 | Outpatient (BNVA) | payer MEDICARE, SELFPAY | PROVIDERS: PCP Physician Assistant; Referring Provider Physician Assistant; Visit Provider Student in an Organized Health Care Education/Training Program | DX: J45.909 Unspecified asthma, uncomplicated (principal); R93.89 Abnormal findings on diagnostic imaging of other specified body structures; Z91.09 Other allergy status, other than to drugs and biological substances | CPT/HCPCS: 99214 ==

== ENCOUNTER → 2023-05-21 09:22 | Outpatient (BNVA) | payer MEDICARE, SELFPAY | PROVIDERS: PCP Physician Assistant; Referring Provider Physician Assistant; Visit Provider Student in an Organized Health Care Education/Training Program | DX: J45.909 Unspecified asthma, uncomplicated (principal); R93.89 Abnormal findings on diagnostic imaging of other specified body structures; Z91.09 Other allergy status, other than to drugs and biological substances | CPT/HCPCS: 99214 ==

== ENCOUNTER → 2023-07-14 08:36 | Outpatient (BNVA) | payer MEDICARE, SELFPAY | PROVIDERS: PCP Physician Assistant; Referring Provider Physician Assistant; Visit Provider Urology | DX: N20.0 Calculus of kidney (principal); R33.9 Retention of urine, unspecified | CPT/HCPCS: 76775; 99214 ==

== ENCOUNTER → 2023-08-19 08:29 | Outpatient (BNVA) | payer MEDICARE, SELFPAY | PROVIDERS: PCP Physician Assistant; Referring Provider Physician Assistant; Visit Provider Physician Assistant Surgical | DX: J45.909 Unspecified asthma, uncomplicated (principal); Z91.09 Other allergy status, other than to drugs and biological substances; R93.89 Abnormal findings on diagnostic imaging of other specified body structures | CPT/HCPCS: 99214 ==

== ENCOUNTER → 2023-10-15 13:58 | Outpatient (BNVA) | payer MEDICARE, SELFPAY | PROVIDERS: PCP Physician Assistant; Referring Provider Physician Assistant; Visit Provider Physician Assistant | DX: M17.12 Unilateral primary osteoarthritis, left knee (principal) | CPT/HCPCS: 99213 ==

== ENCOUNTER 2023-11-18 16:05 | Outpatient (CLI) | payer MEDICARE, SELFPAY ==
--- NOTE | 2023-11-18 10:00 | DI.RAD_ITS ---
Exam(s) XR KNEE LT 1V EXAM: XR KNEE LT 1V CLINICAL HISTORY: OA LEFT KNEE. TECHNIQUE: 2D digital imaging was performed. COMPARISON: CR XR KNEE 4 VIEW LEFT from 07/22/2023 FINDINGS: Single lateral view of the left knee, compared to 07/22/2023. No fractures evident on this single view. Degenerative narrowing of the patello femoral compartment is again noted. Of so cm degenerative narrowing of the lateral compartment evident, as better seen o n outside institution full five view series performed 07/22/2023. No prominent joint effusion seen. IMPRESSION: Degenerative changes as described above. No prominent joint effusion evident DATA REPOSITORY: RADIATION DOSE DELIVERED:
--- NOTE | 2023-11-18 10:00 | DI.RAD_ITS ---
Exam(s) XR STANDING ALIGNMENT EXAM: XR STANDING ALIGNMENT CLINICAL HISTORY: PRE OP L KNEE. TECHNIQUE: 2D digital imaging was performed. Four images were obtained. COMPARISON: CR XR KNEE 4 VIEW LEFT from 07/22/2023 FINDINGS: BONES: The hips are well maintained. There is moderate narrowing and spurring of the lateral femoral tibial joint space of the left knee. Mild narrowing of the lateral compartment of the right knee is noted. The ankles are well maintained.There is less than 10 mm leg length discrepancy. SOFT TISSUE: Normal. IMPRESSION: Bilateral knee arthrosis. DATA REPOSITORY: RADIATION DOSE DELIVERED:
--- NOTE | 2023-11-18 10:30 | DI.RAD_ITS ---
Exam(s) XR KNEE RT 4V AP,LAT,RENAY,PAT EXAM: XR KNEE RT 4V AP,LAT,RENAY,PAT CLINICAL HISTORY: right knee pain. TECHNIQUE: 2D digital imaging was performed. COMPARISON: CR XR KNEE 1 OR 2V BILAT-M2 from 12/29/2022 ([facility]) CR XR KNEE 4 VIEW LEFT from 07/22/2023 CR XR KNEE LT 1V from 11/18/2023 FINDINGS: No evidence of fracture. There does appear to be a joint effusion as seen on the lateral view. There are mild degenerative changes. There is mild narrowing of the lateral compartment unchanged. No significant narrowing of the medial compartment. Mild degenerative pointing of the lateral tibial spine is again noted. There is moderate narrowing of the lateral aspect of the patellofemoral ralph rtment as seen on the merchant's view. Bone density normal. No osseous lesions. IMPRESSION: Some degenerative change as described above but appearing relatively similar to images from outside i nstitution performed December 2022. DATA REPOSITORY: RADIATION DOSE DELIVERED:
== END 2023-11-18 16:06 | disposition home or self-care (01) ==
LOC: DIORS 16:06
PROVIDERS: PCP Physician Assistant; Visit Provider Physician Assistant
DX: M17.12 Unilateral primary osteoarthritis, left knee (principal); Z01.818 Encounter for other preprocedural examination
CPT/HCPCS: 73560; 73564; 77073

== ENCOUNTER 2023-12-01 14:10 | Observation (INO) | payer MEDICARE, SELFPAY ==
[2023-12-01] VITALS (33 sets, daily range): BP systolic 119–205; BP diastolic 68–116; PULSE 77–115; RESP 12–26; TEMP 36–36.7; O2SAT 91–99; BMI 34.0
[2023-12-01] MEDS: Celecoxib 200 MG CAP 400 MG PO (10:48)
[2023-12-01] MEDS: Gabapentin 300 MG CAP PO ×2 (10:48→20:35)
[2023-12-01] MEDS: Acetaminophen 500 MG TAB 1000 MG PO ×2 (10:48→20:35)
[2023-12-01] MEDS: Lactated Ringers 1,000 ML 80 ML IV (11:05)
--- NOTE | 2023-12-01 11:14 | ANES.PREOP_ITS ---
General Info Date of Service Date Performed: 12/01/23 Height: 5 ft 10 in Weight: 107.6 kg Body Mass Index (BMI): 34.0 Surgical Procedure: Operation Date: 12/01/23 12:55 Proposed Procedure Side Surgeon p Knee Total Arthroplasty w/OrthAlign Left Shai Story MD Meds Allergies and Home Medications Allergies Allergy/AdvReac Type Severity Reaction Status Date / Time cephalexin Allergy Intermediate Hives Verified 12/01/23 10:41 prednisone Allergy Mild rash Verified 12/01/23 10:41 adhesive tape Allergy unknown Verified 12/01/23 10:41 gentamicin Allergy unknown Verified 12/01/23 10:41 hydrogen peroxide Allergy Skin Rash Verified 12/01/23 10:41 nitrofurantoin (From Allergy unknown Verified 12/01/23 10:41 Macrodantin) sulfamethoxazole (From Allergy unknown Verified 12/01/23 10:41 Bactrim) trimethoprim (From Bactrim) Allergy rash Verified 12/01/23 10:41 moderna vaccine Allergy Severe Agitation Uncoded 12/01/23 10:41 methylprednisilone Allergy Mild rash Uncoded 12/01/23 10:41 Home Medication ?Medication ?Instructions ?Recorded dupilumab 300 mg/2 mL subcutaneous 300 mg (2 mL) subcut Q2W #12 mL 01/28/22 pen injector ([employer]) iodine 150 mcg tablet 150 mcg PO DAILY 09/11/22 polysaccharide iron complex 150 mg 150 mg PO .4 a day 09/11/22 iron capsule magnesium glycinate 100 mg (as 1,000 mg PO BID 12/29/22 glycinate) tablet fluticasone propionate 230 2 puff inhalation BID #12 grams 04/06/23 mcg-salmeterol 21 mcg/actuation HFA inhaler (Advair HFA) budesonide 0.5 mg/2 mL suspension 0.5 mg (2 mL) inhalation BID PRN 04/14/23 for nebulization Dyspnea, wheezing, illness #360 mL glucosamine [id number] ER See Rx Instructions PO DAILY 04/14/23 375 mg-250 mg-300 mg tablet,ext.rel ondansetron HCl 4 mg tablet 4 mg PO Q8H PRN 04/14/23 norethindrone acetate 5 mg tablet 5 mg PO DIRECTED 07/07/23 potassium citrate 10 mEq (1,080 10 meq PO DAILY #90 tabs 07/14/23 mg) tablet,extended release (Urocit-K 10) albuterol sulfate 90 mcg/actuation 2 puff inhalation 4XD PRN 08/19/23 aerosol inhaler shortness of breath or wheezing #8.5 grams ascorbic acid (vitamin C) 1,000 mg 1 g PO DAILY 11/18/23 capsule cetirizine 10 mg tablet (All Day 10 mg PO DAILY PRN 11/18/23 Allergy (cetirizine)) selenium 200 mcg tablet 200 mcg PO DAILY 11/18/23 acetaminophen 500 mg tablet 1,000 mg (2 x 500 mg) PO Q8H PRN 12/01/23 pain #90 tabs aspirin 81 mg tablet,delayed 81 mg PO BID 30 days #60 tabs 12/01/23 release celecoxib 200 mg capsule (Celebrex) 200 mg PO BID PRN #60 caps 12/01/23 dexamethasone 4 mg tablet 4 mg PO DAILY #2 tabs 12/01/23 docusate sodium 100 mg capsule 100 mg PO BID #30 caps 12/01/23 (Colace) gabapentin 300 mg capsule 300 mg PO QHS #14 caps 12/01/23 oxycodone 5 mg tablet 5 mg PO Q4H PRN #18 tabs 12/01/23 pantoprazole 40 mg tablet,delayed 40 mg PO DAILY #14 tabs 12/01/23 release Current Visit Medications: Current Medications Generic Name Dose Route Start Last Admin Trade Name Freq PRN Reason Stop Dose Admin Acetaminophen 1,000 mg 12/01/23 06:00 12/01/23 10:48 Acetaminophen 500 Mg Tab PO 12/01/23 23:59 1,000 mg PREOP ALON Administration Celecoxib 400 mg 12/01/23 06:00 12/01/23 10:48 Celecoxib 200 Mg Cap PO 12/01/23 23:59 400 mg PREOP ALON Administration Gabapentin 300 mg 12/01/23 06:00 12/01/23 10:48 Gabapentin 300 Mg Cap PO 12/01/23 23:59 300 mg PREOP ALON Administration Ringer's Solution 1,000 mls @ 80 mls/hr 12/01/23 06:00 12/01/23 11:05 IV 12/01/23 23:59 80 mls/hr INFUSION ALON Administration Cefazolin Sodium/Dextrose 2 gm in 50 mls @ 100 mls/hr 12/01/23 06:00 Ancef Duplex IVPB 12/01/23 23:59 PREOP ALON Tranexamic Acid/Sodium Chloride 1,000 mg in 100 mls @ 600 mls/hr 12/01/23 06:00 IVPB 12/01/23 23:59 PREOP ALON IV Miscellaneous Supplies 1 each 12/01/23 06:00 Iv Access IV 12/01/23 23:59 DIRECTED ALON Sodium Chloride 0 ml 12/01/23 06:00 Normal Saline Flush 10 Ml Syr IV 12/01/23 23:59 PRN PRN Sodium Chloride 0 ml 12/01/23 06:00 Normal Saline 10 Ml Vial IJ 12/01/23 23:59 DIRECTED PRN Sterile Water 0 ml 12/01/23 06:00 Water,Injection,Sterile 10 Ml Vial IJ 12/01/23 23:59 DIRECTED PRN PFSH Active Problems Active Problems: Problem Status Onset Code History of total left knee replacement Acute 12/01/23 Z96.652 Osteoarthritis of right knee Acute M17.11 Osteoarthritis of left knee Acute M17.12 Asthma Chronic J45.909 Aortic valve disorder Acute I35.9 Abnormal CXR Acute R93.89 Frostbite Acute T33.90XA Low vitamin B12 level Acute R79.89 Neuropathy Acute G62.9 Tinea pedis Acute B35.3 Fatigue Acute R53.83 Muscle cramping Acute R25.2 Retention of urine Acute R33.9 Allergic rhinitis due to pollen Acute J30.1 Chest pain Acute R07.9 Cough Acute R05.9 Allergic asthma Acute J45.909 Nephrolithiasis Chronic N20.0 Environmental allergies Acute Z91.09 Medical History Medical History Osteoarthritis ADHD Pt. denies Hypomagnesemia Heart murmur Anemia Liver nodule Onychomycosis Vertigo Resting tremor Arthralgia Prediabetes HTN (hypertension) HLD (hyperlipidemia) Hot flashes SOB (shortness of breath) Dysuria Urinary frequency Dysfunctional voiding of urine Cholelithiasis pt. denies Disc degeneration Surgical History Surgical History (Updated 12/01/23 @ 10:40 by Eugenio Sweet RN) H/O detached retina repair History of arthrodesis metacarpophalangeal joint, with or without internal fixation History of ureteroscopy History of appendectomy History of lobectomy of thyroid Tobacco Smoking/Tobacco Use Status: Former Tobacco Use Alcohol Alcohol Intake: never Substance Use Substance use: Never Substance use type: does not use Vital Signs and Lab Results Vital Signs Most Recent Vital Signs in EMR: Most Recent Vital Signs Temp Pulse Resp BP Pulse Ox 36.6 C 90 20 205/101 H 97 12/01/23 10:31 12/01/23 10:31 12/01/23 10:31 12/01/23 10:31 12/01/23 10:31 Lab Results Blood Type / Crossmatch: No Data to Display Complete Blood Count: No Data to Display Complete Metabolic Panel: No Data to Display Liver Function Panel: No Data to Display Coagulation Panel: No Data to Display Cardiac Panel: No Data to Display Arterial Blood Gas: No Data to Display Venous Blood Gas: No Data to Display Pancreas Panel: No Data to Display Thyroid Panel: No Data to Display Infectious Disease: No Data to Display Blood Cultures: No Data to Display Toxicology Panel: No Data to Display Imaging and Studies Imaging and Studies Study information below may be from another EMR and interpreted by another provider. Please see original notes in EMR for more complete details. Stress Test Summary: 11/14: negative stress echo. LVEF 65%, mild to moderate diastolic dysfunction. mild . Pulmonary Function Summary: 09/13: normal PFTs. Anesthesia Assessment and Plan Anesthesia History Personal History: No History of Anesthesia Complications Family History: No Family History of Anesthesia Complications Exercise Tolerance Exercise Tolerance: Metabolic Equivalents>4 Pertinent Negatives Pertinent Negatives: No Symptoms of GERD Cardiac & Pulmonary Exam Cardiac Exam: Normal S1/S2 Heart Sounds Pulmonary Exam: Clear Bilateral Breath Sounds Implantable Cardiac Device Does patient have a Pacemaker or an ICD?: No Airway Exam Known Difficult Airway: No Mallampati Class: 3 Mouth Opening: Normal (> 3cm) Thyromental Distance: Greater than 3 cm Neck Range of Motion: Full ROM Neck Circumference: Normal Teeth Condition: Normal Dentition ASA Classification ASA Score: ASA 2 Emergency Case?: No NPO Status NPO Status: NPO Clears >2 hours, Solids >8 hours Anesthesia Plan Resuscitation Status: Full Code Anesthesia Technique: General Anesthesia Airway Planned: LMA Pain Management: Surgeon and patient request nerve block Monitors Used: Standard Monitors
--- NOTE | 2023-12-01 12:20 | ROE_ITS ---
Date of service: 12/01/23 Time of Service: 12:20 Operative Note Operative Note DATE OF PROCEDURE: 12/01/23 PRE-OP DIAGNOSIS: Right Knee Osteoarthritis Left Knee Osteoarthritis POST-OP DIAGNOSIS: same PROCEDURE: Right Total Knee Replacement with Intraoperative Navigation Left Knee Injection SURGEON: Shai Story [employer] EXECUTIVE SECURITY: Nallely Ibarra ANESTHESIA TYPE: General LMA/ETT Refer to Anesthesia Record ESTIMATED BLOOD LOSS: 50 PATHOLOGY: none sent TOURNIQUET TIME: 0 COMPLICATIONS: None Patient was transported to: PACU Patient's condition: stable Implants: 1. Depuy Attune Cementless Cruciate Retaining Femoral Component, Size 9 2. Depuy Attune Cementless Fixed Bearing Tibial Component, Size 8 3. Depuy Attune 9x7 CR/FB Poly 4. Depuy Attune Patellar Component, Size 38 Indications: I have seen Miroslava in clinic for symptoms of bilateral knee arthritis, confirmed with radiographic findings. She has exhausted nonoperative methods and was having significant limitations in daily function and desired better function and less pain. I discussed the technical details of a knee replacement for the left knee and an injection for the right knee. I explained the risks of the procedure to include, but not limited to, bleeding, infection, pain, stiffness, fracture, damage to nerves and vessels, damage to muscles and tendons, loosening, need for repeat procedure, blood clot and cardiopulmonary demise. Despite these risks, Miroslava elected to proceed. Findings: There was significant signs of arthritis throughout the knee, mostly within the lateral compartment but present throughout to lesser extent.. Procedure Description: Miroslava was greeted in the preoperative holding area where the correct side was identified and marked. The consent was reviewed with the patient and signed. The history and physical was updated. All questions were answered. Preoperative mediacations were administered: Acetaminophen 1000mg, Celebrex 400mg, and Gabapentin 300mg. An adductor canal block was then administered by the anesthesia team in the PACU. Miroslava was taken back to the operating room. A general anesthetic was then administered. The patient was placed into the supine position on the operating room table. A nonsterile tourniquet was placed high onto the leg. Posts were placed for positioning during the procedure. All bony prominences were well padded. Prophylactic antibiotics in the form of Cefazolin were administered. 1g of Tranxemic Acid was given intravenously within 30 minutes of incision. The injection for the right knee was performed first. ChloraPrep was used to prep the skin over the superolateral aspect of the knee. Utilizing a 21-gauge needle I then injected 6 cc of 0.25% bupivacaine and 80 mg of Depo-Medrol. The left leg was then prepped with Chloraprep and draped in a standard fashion with impervious stockinette. A second prep with Chloraprep was performed prior to application of Iodine impregnated skin protection. A timeout to confirm correct identity, side and site, procedure, allergies, anesthesia, and medical concerns was performed. With the knee in some flexion, a midline incision was made overlying the knee. Full thickness skin flaps were raised once the extensor mechanism was encountered. These were raised medially and laterally. Any bleeding was controlled with electrocautery. Once the extensor mechanism was fully exposed, a medial parapatellar arthrotomy was performed in a flexed position. All bleeding from the arthrotomy and the geniculate arteries was coagulated. A medial subperiosteal peel was performed with electrocautery to the midcoronal plane. The fat pad was removed while keeping the patellar tendon protected. The anterior distal femur synovium was removed for later visualization. The ACL and PCL were resected and the anterior horn of the lateral meniscus was transected. The knee was then flexed with the patella everted. Large osteophytes from the tibia were removed. Large osteophytes from the femur were removed. A single starting pin was then placed 1cm anterior to the PCL insertion and the notch in the direction of the femoral head. The OrthoAlign device was applied over the pin. It was oriented to be in line with the epicondylar axis and the trochlear groove. It was then pinned into place. The navigation computer was then turned on and calibrated. The distal femur cut was set at 0 degrees varus and 3 degrees flexion. The distal femur cutting guide then was positioned for a 9mm cut. The distal femur was cut with an oscillating saw while protecting the soft tissues. The tibia was then addressed. The OrthoAlign device was placed over the tibial tubercle and medial tibia and secured into position. Once again, OrthoAlign was calibrated and then set for a 0.5 degree varus cut and 5 degrees of posterior slope. With this locked into position, the cut thickness stylus was used to assess cut thickness. The lateral side, most involved side, was set for a 6mm cut. This was then held in position and pinned into place with 2 additional pins and a cross pin for stability. The medial and lateral collateral ligaments were protected and the cut was performed. With this completed, it was assessed and noted to be of appropriate dimensions. The guide and OrthoAlign was removed. A spacer block was inserted and the knee was brought into extension to ensure enough space was present. . The Orthoalign gap balancing device was then placed in extension. This was used to ensure that the ligaments were properly balanced with up to 2 to 3 mm laxity laterally compared medially. The extension gap was measured as 20mm. The knee was then brought into 90 degrees of flexion and the ligament lat[place] studies director was once again placed. Under the same amount of force the flexion gap was measured. The Attune specific jig was placed and the flexion gap was made to match the extension gap. The femur was then sized as a size 9. The 4-in-1 cutting guide was the placed. An karen wing was used to confirm appropriate position of the anterior cut to avoid notching. This cutting guide was ensured to be flush on the cut surface and then pinned into place with headed pins. While protecting the soft tissues, quad tendon, and collateral ligaments, the anterior and posterior cuts were performed with a saw. The central two pins were removed and the posterior and anterior chamfers were cut next. The notch-cutting guide was placed. This was pinned to lateralize the femoral component as much as possible while keeping it flush on the cut surface. This was then pinned into position. A saw was used to make the notch cut. A rasp smoothed the cut surfaces. The medial and lateral menisci were removed. A trial femoral component was then inserted, impacted down to the cut surfaces, and the lug holes were drilled. A provisional trial tibial component was placed and the knee was brought through range of motion. There was noted to be excellent extension and flexion. There was no significant instability. The patella was tracking without thumbs. A size 7mm polyethylene component provided the best range of motion and stability with less than 2mm gapping with medial and lateral stress and full extension without significant hyperextension. The tibial cut surface was fully exposed. The tibia was then sized as a 8. The tibia had been previously marked during trialing to correspond to the center of the tibial component to help with rotation. The trial was aligned to this rosalba, approximately rotated to the medial 1/3rd of the tibial tubercle. The trial was pinned into place. The tibia was prepared with a reamer and a keel punch and lug holes. The knee was then brought into extension and the patella was measured as 27mm. Using the patellar clamp and cut guide, this was resected to a flat surface with at least 13mm of thickness remaining. The size 38 patella fit the best. This was oriented and then clamped into position. The lugs were drilled. The trial components were removed. The final components were opened on the back table. The periosteal and capsular tissues, especially posteriorly, around the knee were then systematically injected with a periarticular cocktail consisting of 246mg of Ropivacaine, 0.5mg of Epinephrine, 0.08mg of Clonidine, and 30mg of Ketorolac, diluted to 100cc. On the back table, with the implants opened, the cement was mixed. One batch of high viscosity cement was prepared with vacuum assistance. After the cement was ready a small amount was placed on the cut surface of the patella and the patellar button was clamped into position and held. While the cement was hardening, the cementless knee components were placed. Starting with the tibial component, the tibia was subluxed anteriorly and the lug holes of the component were lined up. The tibia was then impacted with an impactor and mallet until the tibial component was in contact with the tibia. Then, the femoral component was inserted. The lug holes were aligned and the component was impacted into position. The final polyethylene component was inserted. The knee was irrigated with Surgiphor Betadine solution. This was allowed to sit in the knee for 3 minutes and then it was thoroughly irrigated out with saline. After the cement had finally cured, approximately 15min, the clamp was removed from the patella and the knee was taken through range of motion. The patella was tracking with a no-thumbs technique. The capsule was then reapproximated with a No. 1 Vicryl at multiple locations. The capsule was finally closed with a No. 2 Stratafix, barbed suture. Deep tissues were then reapproximated with 0 Vicryl and 2-0 Vicryl. The skin was closed with a running 3-0 Monocryl in a subcuticular fashion. This was reinforced with skin glue. A Mepilex silver dressing was applied along with a [id number] MELANI wrap. A CryoCuff was applied. Miroslava was transferred to the hospital bed without difficulty an suffering no apparent complication. Miroslava has a good prognosis. Physical therapy will start today and without restrictions, weight-bearing as tolerated. Aspirin 81mg BID will be used for DVT prophylaxis.
[2023-12-01] MEDS: ceFAZolin 2 GM/50 ML BAG IVPB (12:29)
[2023-12-01] MEDS: TRANEXAMIC ACID/SOD. CHL. 1,000 MG/100 ML BAG 600 MG IVPB (12:33)
--- NOTE | 2023-12-01 12:41 | W.ANESNERVE ---
Nerve Block Single Injection Procedure Date and Time Date Performed: 12/01/23 Procedure Start: 12:00 Location Where Procedure Performed Procedure Location: Day Surgery Unit Reason Performed: Postoperative Analgesia Requesting Provider: Shai Story Timeout Performed Timeout Performed: Yes Monitoring Used ECG, Blood Pressure, SpO2 and See EMR for corresponding vital signs Sterility Sterility: Hand Hygiene, Surgical Cap, Surgical Mask, Sterile Gloves and Chlorhexidine Sedation Given During Procedure Sedation Given (Indicate Dose Given): No Sedation given Patient Mental Status Patient Mental Status: Awake Nerve Block 1st Nerve Block: Laterality: Left Block Type: Adductor Canal Ultrasound Image Saved?: Yes Needle / Catheter Used: 100mm SonoPlex II Local Anesthetic Bolus (Indicate Dose Given): Lidocaine used for local infiltration of skin, Injected in 3-5ml increments after negative blood aspiration, Bupivacaine 0.25% Dose:: 10ml and Exparel Dose:: 10ml Additives (Indicate Dose Given): None Ultrasound: Sterile probe cover and gel used Nerve Stimulator: Not Used Paresthesia: None Procedure Tolerated: No Complications and Patient tolerated well Procedure Outcome: Successful Performed By: Alvin Arana
[2023-12-01] MEDS: Bupivacaine 0.25% Pres-Free 30 ML VIAL (12:50)
[2023-12-01] MEDS: methylPREDNISolone ACETATE 80 MG/ML VIAL (12:51)
[2023-12-01] MEDS: fentaNYL 100 MCG/2 ML VIAL IVP ×2 (14:21→14:26)
[2023-12-01] MEDS: LORazepam 2 MG/ML VIAL 0.5 MG IVP (14:34)
[2023-12-01] MEDS: HYDROmorphone 2 MG/ML SYR IVP (15:10)
[2023-12-01] MEDS: Normal Saline 10 ML VIAL IJ (15:10)
--- NOTE | 2023-12-01 15:50 | W.PC.ACHO ---
Registration Status: Primary Language: Preferred Language: Medical / Surgical History (Last Reviewed 12/01/23 @ 10:32 by Kalli Tovar RN) Osteoarthritis ADHD Hypomagnesemia Heart murmur Anemia Liver nodule Onychomycosis Vertigo Resting tremor Arthralgia Prediabetes HTN (hypertension) HLD (hyperlipidemia) Hot flashes SOB (shortness of breath) Dysuria Urinary frequency Dysfunctional voiding of urine Cholelithiasis Disc degeneration (Last Reviewed 12/01/23 @ 10:32 by Kalli Tovar RN) H/O detached retina repair History of arthrodesis History of ureteroscopy History of appendectomy History of lobectomy of thyroid Most Recent Vital Signs Temperature 36.7 C 12/01/23 15:05 Temperature Source Temporal Artery Scan 12/01/23 11:41 Pulse 79 12/01/23 15:10 Pulse Rhythm Regular 12/01/23 10:31 Pulse 93 H 12/01/23 15:11 Respiratory Rate 26 H 12/01/23 15:11 Respiratory Depth Normal 12/01/23 10:31 Blood Pressure 165/96 H 12/01/23 15:10 Blood Pressure Mean 122 12/01/23 15:10 Blood Pressure Position Supine 12/01/23 11:41 Pulse Oximetry 92 12/01/23 15:11 Respiratory End-tidal CO2 30 12/01/23 15:11 Oxygen Delivery Method Room Air 12/01/23 15:24 Oxygen Flow Rate 6 12/01/23 14:39 Pain Level 4 12/01/23 15:24 Comment Block performed by Alvin Mariee CRNA with assistance from Kalli ZUÑIGA. Pt placed on continuous spO2 and Cardiac monitoring at 1145 Time out: 1211 Block start:1212 Block end: 1214 12/01/23 11:41 Allergies cephalexin Allergy (Intermediate, Verified 12/01/23 10:41) Hives Unknown prednisone Allergy (Mild, Verified 12/01/23 10:41) rash itching and rash adhesive tape Allergy (Verified 12/01/23 10:41) unknown rash gentamicin Allergy (Verified 12/01/23 10:41) unknown Unknown hydrogen peroxide Allergy (Verified 12/01/23 10:41) Skin Rash nitrofurantoin (From Macrodantin) Allergy (Verified 12/01/23 10:41) unknown Unknown sulfamethoxazole (From Bactrim) Allergy (Verified 12/01/23 10:41) unknown Unknown trimethoprim (From Bactrim) Allergy (Verified 12/01/23 10:41) rash Unknown moderna vaccine Allergy (Severe, Uncoded 12/01/23 10:41) Agitation Unknown methylprednisilone Allergy (Mild, Uncoded 12/01/23 10:41) rash Active Medications Generic Name Dose Route Start Last Admin Trade Name Freq PRN Reason Stop Dose Admin Acetaminophen 1,000 mg 12/01/23 06:00 12/01/23 10:48 Acetaminophen 500 Mg Tab PO 12/01/23 23:59 1,000 mg PREOP ALON Administration Celecoxib 400 mg 12/01/23 06:00 12/01/23 10:48 Celecoxib 200 Mg Cap PO 12/01/23 23:59 400 mg PREOP ALON Administration Gabapentin 300 mg 12/01/23 06:00 12/01/23 10:48 Gabapentin 300 Mg Cap PO 12/01/23 23:59 300 mg PREOP ALON Administration Ringer's Solution 1,000 mls @ 80 mls/hr 12/01/23 06:00 12/01/23 15:37 IV 12/01/23 23:59 80 mls/hr INFUSION ALON Infusion Cefazolin Sodium/Dextrose 2 gm in 50 mls @ 100 mls/hr 12/01/23 06:00 12/01/23 12:40 Ancef Duplex IVPB 12/01/23 23:59 Infused PREOP ALON Infusion Tranexamic Acid/Sodium Chloride 1,000 mg in 100 mls @ 600 mls/hr 12/01/23 06:00 12/01/23 12:43 IVPB 12/01/23 23:59 Infused PREOP ALON Infusion Lorazepam 0.5 mg 12/01/23 14:18 12/01/23 14:34 Lorazepam 2 Mg/Ml Vial IVP 12/31/23 14:17 0.5 mg DIRECTED PRN Administration Sodium Chloride 0 ml 12/01/23 06:00 12/01/23 15:10 Normal Saline 10 Ml Vial IJ 12/01/23 23:59 10 ml DIRECTED PRN Administration IV IV Catheter Type [Right Peripheral IV Forearm] IV Catheter Gauge [Right 20 Forearm] Diet Orders Category Date Time Status Regular/Normal [DIET] Nutrition 12/01/23 Lunch Active Intake and Output - 24 Hour Total 10/20/23 08:44 thru 12/01/23 15:37 Intake Total 750 Output Total 50 Balance 700 Weight 107.6 kg Intake: IV 750 Output: Estimated Blood Loss 50 Other: Emesis Description None v v v v v v v v v Sending and/or Receiving Nurses: Please use comment section below to note any information pertinent to the patient hand-off not included above. Information / Comments: Patient received from PACU Nurse Fito, post op left total knee replacement & right knee injection. Pt is AO x #. with cryo cuff in place. Caleb wrap drsg is clean,dry and intact. All questions ansered appropriately. Report received from:
[2023-12-01] MEDS: ceFAZolin 1 GM/50 ML BAG IVPB ×2 (16:23→23:30)
[2023-12-01] MEDS: HYDROmorphone 2 MG/ML SYR 0.5 MG IVP (17:40)
[2023-12-01] MEDS: Aspirin E.C. 81 MG TABEC PO (20:34)
[2023-12-01] MEDS: Celecoxib 200 MG CAP PO (20:35)
[2023-12-01] MEDS: oxyCODONE 5 MG TAB PO (20:36)
[2023-12-01] MEDS: Normal Saline Flush 10 ML SYR IV ×2 (20:37→23:32)
[2023-12-02] MEDS: Ondansetron 4 MG/2 ML VIAL IVP ×2 (00:46→13:27)
[2023-12-02] MEDS: oxyCODONE 5 MG TAB PO ×4 (00:46→22:27)
[2023-12-02] MEDS: Normal Saline Flush 10 ML SYR IV (00:47)
[2023-12-02 04:45] VITALS: BP 134/83; PULSE 75; RESP 19; TEMP 36; O2SAT 97
[2023-12-02] MEDS: Pantoprazole 40 MG TABCR PO (07:30)
[2023-12-02 08:05] VITALS: BP 138/96; PULSE 84; RESP 18; TEMP 36.7; O2SAT 93
[2023-12-02] MEDS: ceFAZolin 1 GM/50 ML BAG IVPB (08:11)
[2023-12-02] MEDS: Celecoxib 200 MG CAP PO ×2 (08:12→20:31)
[2023-12-02] MEDS: Acetaminophen 500 MG TAB 1000 MG PO ×3 (08:12→20:30)
[2023-12-02] MEDS: Aspirin E.C. 81 MG TABEC PO ×2 (08:12→20:31)
[2023-12-02] MEDS: Potassium Citrate 1080 MG TABCR PO (08:12)
--- NOTE | 2023-12-02 09:24 | IN_ITS ---
PT Notes Visit Reasons: Left knee DJD Physical Therapy Initial Evaluation Date:12/02/2023 Referring Doctor: Dr Story PT Orders: PT CONSULT: PT evaluation s/p ortho surgery Precautions: WBAT BLE, TEDS x 2 weeks Patient Profile/Admitting Diagnosis: Pt is a 73 yo female referred to PT s/p elective L TKA and Right knee injection on 12/01/2023. Post op complicated by pain. PMHX: Osteoarthritis B knee ADHD (Pt. denies) Hypomagnesemia Heart murmur Anemia Liver nodule Onychomycosis Vertigo Resting tremor Arthralgia Prediabetes HTN (hypertension) HLD (hyperlipidemia) Hot flashes SOB (shortness of breath) Dysuria Urinary frequency Dysfunctional voiding of urine Cholelithiasis pt. denies Disc degeneration Surgical History (Updated 07/07/23 @ 11:41 by Eugenio Sweet RN) H/O detached retina repair History of arthrodesis metacarpophalangeal joint, with or without internal fixationHistory of ureteroscopy History of appendectomy History of lobectomy of thyroid Social History/Home Situation: Lives alone in single level home. Pt independent with ADLs, cooking, cleaning, shopping,medication management.(+) drives. Equipment Owned/DME: cane; issued and fitted for a FWW, Pt reports she has a comfort height toilet at home also. Subjective: Pt reports she is feeling better than she was last night. She states she walked with the Nurse this morning. She states her thigh is sore . She reports she thinks she over did it with the exercises she was given before surgery and now I am paying for it. She reports she needs very specific instructions on how many reps and times per day or she will just keep doing it becuase she wants to get better. Objective: [] General Observation:pt presented seated in chair with cryocuff in place to her left knee, IV infusing. Mental Status: Alert and Ox4 cooperative, motivated Pain: 3/10 left knee ROM: [] Right Upper Extremity: WNL Left Upper Extremity: WNL Right Lower Extremity: WNL hip and ankle , knee 0-118 Left Lower Extremity: Hip flexion AAROM 98 degrees, knee 8-96 degrees Strength: [] Right Upper Extremity: 5/5 Left Upper Extremity: 5/5 Right Lower Extremity: 5/5 Left Lower Extremity: hip: 3-/5, knee extension 3-/5, knee flexion 2+/5, ankle 3+/5; poor QS and (+) lag with SLR in shortened range Sensation: intact Bed Mobility/Transfers: Supine to sit independent scoops LLE with RLE Sit to stand supervision Stand to sit supervision Bed to chairsupervision with FWW Gait: ambulate 200 feet supervision with FWW after initial cue for sequencing reciprocal pattern . Pt with intermittent cues to hold/squeeze thigh tight during mid stance LLE to provide stability. Stairs: 2 x6 steps with 2 rails Supervision step to pattern Balance: [] Static Sitting: Normal Dynamic Sitting: Good + Static Standing: Good Dynamic Standing: Fair+ with FWW Special Tests: [] Mobility Limitations Standardized Measure [] [facility] 6 clicks Basic Mobility Inpatient Short Form: [] Raw Score:23 CMS Score: 11.20% Informed Consent/Education: Patient instructed in purpose of PT consult. Pa cket containing TKA exercise protocol has been given to patient. Education and training on initial set of exercises that can be done at home have been completed with patient. Assessment: Patient presents with clinical signs and symptoms consistent with current/admitting diagnoses that have resulted to mobility limitations, gait instability, generalized weakness, and impairment of motor control as demonstrated by the following impairment level findings: 1. Decreased strength to left knee major muscle groups 2. Impaired standing balance 3. Limitation of joint range of motion in left knee Impairments are contributing to the following functional limitations: 1. Inability to safely ambulate without assistive device 2. Increase completion time for mobility ADL performance 3. Increased fall risk Patient is assessed as a moderate complexity based on the following: History: 73-year-old female with impairment level findings, functional limitations, and past medical history as indicated above Examination: Demonstrable impairment in strength, balance, and mobility level with underlying impairments and functional limitations as documented above Presentation: stable Decision Making: moderate Goals: 1. pt will be independent with HEP 2 pt will ambulate with FWW independent > 100 feet demonstrating knee stability on level surfaces. 3. Pt will be independent with all transfers with FWW Pt will demonstrate left quad set with towel roll x 10 reps Plan of Care/Treatment Plan: PT evaluation and 1-2 treatment session only for functional mobility training using recommended AD and for HEP instruction. DISCHARGE RECOMMENDATIONS: Home with outpatient PT as schedule TREATMENT CODE/TIME: [id number]/ [id number] Thank you for the opportunity to participate in the care of this patient. Please sign an return this page within 30 days if you agree with the above POC. Thank you! Physician Signature Date [facility]
--- NOTE | 2023-12-02 11:43 | W.ANESPOSTOP ---
Postoperative Evaluation Date, Time and Location Date Performed: 12/02/23 Time Performed: 10:55 Patient Location: Med/Surg Vital Signs Most Recent Imported Vital Signs: Most Recent Vital Signs Temp Pulse Resp BP Pulse Ox 36.7 C 84 18 138/96 H 93 12/02/23 08:05 12/02/23 08:05 12/02/23 08:05 12/02/23 08:05 12/02/23 08:05 Pain Score Most Recent Pain Score: Most Recent Pain Score Pain Level [Left Knee] 7 11/24/23 20:34 Pain Level 4 12/02/23 1055 Assessment Mental Status: Awake (Alert & Oriented to Patient Baseline) Airway and Respiratory Function: Patent airway with normal (patient baseline) respiratory exam Cardiovascular Function: Hemodynamically Stable Hydration Status: Adequately Hydrated Nausea & Vomiting: No Nausea or Vomiting Pain: Pain is tolerable per patient Peripheral Nerve Block: Regional nerve block not resolved at time of post operative discharge Postoperative Comments:: Walked in and pt. in chair watching TV in no acute distress. She states she was comfortable this morning and walking in unit. Then later in morning more uncomfortable when walking and that operative leg was collapsing here and there. She is now a 4/10, but states she has been 10/10 earlier. States she wants to go home but is not sure she is ready. I will communicate this to Dr. Story who saw pt. earlier.
[2023-12-02 11:44] VITALS: BP 124/84; PULSE 84; RESP 16; TEMP 36.8; O2SAT 96
[2023-12-02] MEDS: HYDROmorphone 2 MG/ML SYR 0.5 MG IVP ×2 (11:53→17:50)
[2023-12-02] MEDS: Normal Saline Flush 10 ML SYR IVP ×4 (11:54→20:29)
[2023-12-02] MEDS: Dexamethasone 4 MG TAB PO (11:54)
[2023-12-02] MEDS: LORazepam 2 MG/ML VIAL 0.5 MG IVP (14:34)
--- NOTE | 2023-12-02 15:29 | PHA.REVIEW2 ---
Pharmacy Admission Review Admission Clinical Review Admission Pharmacy Review: cephalexin Allergy (Intermediate, Verified 12/01/23 10:41) Hives prednisone Allergy (Mild, Verified 12/01/23 10:41) rash adhesive tape Allergy (Verified 12/01/23 10:41) unknown gentamicin Allergy (Verified 12/01/23 10:41) unknown hydrogen peroxide Allergy (Verified 12/01/23 10:41) Skin Rash nitrofurantoin (From Macrodantin) Allergy (Verified 12/01/23 10:41) unknown sulfamethoxazole (From Bactrim) Allergy (Verified 12/01/23 10:41) unknown trimethoprim (From Bactrim) Allergy (Verified 12/01/23 10:41) rash moderna vaccine Allergy (Severe, Uncoded 12/01/23 10:41) Agitation methylprednisilone Allergy (Mild, Uncoded 12/01/23 10:41) rash Resuscitation Status Full Code Height 5 ft 10 in Weight 107.6 kg Comments Comments/Follow Ups: POD#1 Right Total Knee Replacement with Intraoperative Navigation Pharmacy Admission Review Renal Dosing Medications needing adjustments: Reviewed (CrCl 62.31 mL/min) List of meds needing interventions: Current medications are okay Anticoagulation DVT Prophylaxis: Reviewed (SCDs/TEDs - POD#1) Opiate Usage Evaluate Pain Scale/Pains Meds: Reviewed (hydromorphone IVP PRN - 2 doses given, oxycodone PO PRN - 5 doses given) Scheduled Bowel Reg ordered if on Opiates?: No (PRN docusate) Relevant Labs Electrolytes, C-Reactive P, ESR: Reviewed (No labs) Cardiac Review BP, HR, EF%: Reviewed (BP and HR WNL) QTc Review QTc: Reviewed (No EKG on file) IV to PO Switch IV Medications: Reviewed (hydromorphone, lorazepam and ondansetron) Home Meds Home Med List reviewed: Intervened Relevent Home Meds Not ordered & why?: vitamin C, cetirizine (PRN), Dupixent (every 2 weeks), Advair (substituted with Symbicort per pharmacy protocol), magnesium, norethindrone, glucosamine, iodine Polysaccharide iron complex and selenium tablet changed to patients own orders Current Meds Current Medication Order Review: Intervened Comments: Added IV admission order set Comments Comments/Follow Ups: POD#1 Right Total Knee Replacement with Intraoperative Navigation
--- NOTE | 2023-12-02 15:46 | PTTR_ITS ---
PT Notes Visit Reasons: Left knee DJD Inpatient Physical Therapy Treatment Note [facility] Date: 12-02-2023 PRECAUTIONS: Weightbearing as tolerated bilateral lower extremities, standard, fall risk SUBJECTIVE: Patient reports inability to move her right lower extremity which is progressively gotten worse since this morning. Patient reports her knee buckled while walking. However when question when this occurred she stated it was earlier unable to give specifics. She then clarified that the knee did not actually buckle it just did not feel strong while she was walking. She reports she suddenly was unable to move her leg like she could when we walked and revi ewed her exercises this morning. OBJECTIVE: Patient presents seated in recliner bilateral lower extremities on floor Cryo/Cuff in place patient with anxious appearance to face grasping onto armrests of chair as this telegraphic typewriter installer entered the room. Patient was receiving Zofran and Tylenol from nurse at this time.? PAIN: 8/10 left knee/thigh/posterior knee VITALS: ?Monitored by nursing Therapeutic Activities (66704k5): Direct one-on-one instruction in dynamic activities to improve functional performance. ? BED MOBILITY/TRANSFERS? Supine-sit: Independent however utilizing bilateral upper extremities to move left lower extremity? Sit-supine: Min assist to lift left lower extremity onto bed ? Sit-stand: Supervision ? Stand-sit: [Supervision? Chair-bed: CGA with FWW patient dragging left lower extremity difficulty advancing ? Ambulation: with FWW CGA 20 feet inability to advance LLE dragging it unable to clear toes on BLE intermittently. Pt with significant discoordination of movement. Pt unable to hold Left knee in extension at mid stance when cued however intermittently demonstrated knee extension. Pt also with intermittent excessive dependence on BUE to advance LEs. ? Neuromuscular Re-education (65894o2): Activities that facilitate re-education of movement balance, posture, coordination, and proprioception or kinesthetic sense, requiring skilled tactile and verbal cues ? Exercises/techniques: ?Facilitation of quad supine standing and sitting utilizing overflow from right lower extremity to left and attempt to activate left quad, anterior tibialis, and hamstrings. Attempting gentle stroking of quad to facilitate contractions. Pt unable to tolerate tactile input to thigh. ASSESSMENT: Patient demonstrates significant change in ability to elicit left quad contraction for hip flexion and knee extension. Patient also with inconsistent ability to dorsiflex left lower extremity. Patient demonstrating inability to hip flex to advance left lower extremity during gait dragging foot behind unable to advance past neutral position. Patient unable to dorsiflex to unweight toes from ground. Patient placed in supine when instructed to move her foot she was able to perform 1 ankle pumps. Patient attempting to utilize bilateral upper extremities to flexed hip and knee. Patient with heightened sensitivity to touch entire left lower extremity with noted intermittent yelling out during movement of the calf support on the recliner chair. Patient noted with increased anxiety unable to perform long arc quad. Patient knee with no visual deficit proximal to patella. Patient intermittently able to activate quad contraction for quad set. Pt assisted to bed with cryocuff in place. Dr Ca updated on pt change. At end of session Nurse was providing pt with Ativan. PLAN: Continued skilled PT for strengthening motor control left lower extremity functional ability gait and stairs until medically appropriate for discharge TREATMENT CODE/TIME: 74232m 40 mins for 3 units, 60893 x 20 minutes for 1 unit/[id number] DISCHARGE RECOMMENDATION: Home with HH PT prior to outpatient PT versus SNF
--- NOTE | 2023-12-02 16:22 | W.PM.PROGNOT ---
Date of Service Date of service: 12/03/23 Time of Service: 16:30 Assessment and Plan Assessment and plan (1) History of total left knee replacement: Status: Acute Assessment and plan: POD#1 s/p L TKA. She was making some good progress but then had increased pain. This is not unexpected as the thigh muscle is usually the most common area to have pain and limitations with ambulation. WBAT. Increase amount of Oxycodone. Hold on d/c today to treat pain and improve mobilization with likely home with home health discharge in the next day or so. (2) Muscle weakness of lower extremity: Status: Acute Assessment and plan: Muscle pain and weakness is normal after knee replacement. We will use massage and heat in addition to quad sets as well as continued physical therapy. Continue with current WBAT and repetition with nursing for confidence. Subjective Subjective Interval history since last seen: Miroslava had more pain this morning with mobilization although had done well overnight. She reports pain into the left thigh particularly with activation of the quad and mobilization. She is concerned about falling and going home. No numbness or tingling. No tatyana giving way. Exam Narrative Exam Narrative: AAOx3. NAD. LLE dressing c/d/i. Swelling of the thigh and in the soft tissues anterior to the patella. She is able to actively extend the knee with william epain but without defect of the extensor mechanism. +ADF/APF/EHL/FHL. SILT DP/SP/Tib. Objective Last Vital Signs Temp 36.1 C L 12/03/23 09:06 Pulse 81 12/03/23 09:06 Resp 17 12/03/23 09:06 BP 129/70 12/03/23 09:06 Pulse Ox 97 12/03/23 09:06 Time Spent with Patient Time Spent with Patient: 25-34 minutes Time was spent: preparing to see the patient(eg.review tests), obtaining and/or reviewing separately otained hiistory and counseling the patient
--- NOTE | 2023-12-02 16:52 | INITIAL_ITS ---
Date of service: 12/02/23 Time of Service: 10:00 Care Management Initial Assmt Initial Assessment Reason for Hospitalization: left knee replacement Functional Status/Living Situation Patient Presentation: Miroslava was sitting up in the bedside chair, feet elevated, when CM met with her this morning. She is s/p L total knee, and right knee injection, secondary to severe DJD. When CM met with Miroslava, she stated that she was in a lot of pain, she thought she had perhaps done too much. Miroslava was friendly and talkative and hoping to go home. As the day progressed, she was having increased pain. The MD was notified. Miroslava will stay one more night for pain control. Town of Residence: [place] Resides with: Alone Significant Other/Family: Local (2 sons live close by, Tang and Luca and they are helpful. 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 She currently volunteers whenever she can. 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 Would like to return to no device. Advance Directives Advance Directives: Do you have an Advance Directive: N 07/16/23 10:12 AD On File at [facility]: N 07/16/23 10:12 Date Asked 12/01/23 11/27/23 07:41 AD Date Reviewed COLST On File at [facility] COLST Date Scanned Code Status Resuscitation Status Full Code Portal Pt does not currently have a portal and education provided: Yes Insurance Coverage/Financial Issues Insurance: MCR and Aetna supplement Financial Issues: lives on [place]. No extra money. Affords what she needs, but no extra. Care Team Visit Care Team Role Provider Type Lidia Clay Primary Care Provider NON-[facility] STAFF PHYSICIAN InPatient [facility] Other Providers OTHER Shai Story MD Admit Provider [facility] STAFF PHYSICIAN Attending Provider Discharge Potential Discharge Needs: Surgical F/U Appt Anticipated Barriers to Discharge: None Identified Patient/Family Education Needs: Review discharge instructions, discuss Ask Me Three [facility]: [facility] .Anticipate that Miroslava will discharge home tomorrow with new orders for HH RN and PT, through [facility]. She will transport through [facility] private vehicle. She will f/u with her surgeon. and will begin outpatient PT on 12/14. PFSH All Active Problems History of total left knee replacement (Acute 12/01/23) Osteoarthritis of right knee (Acute) Osteoarthritis of left knee (Acute) Asthma (Chronic) Aortic valve disorder (Acute) Abnormal CXR (Acute) Frostbite (Acute) Low vitamin B12 level (Acute) Neuropathy (Acute) Tinea pedis (Acute) Fatigue (Acute) Muscle cramping (Acute) Retention of urine (Acute) Allergic rhinitis due to pollen (Acute) Chest pain (Acute) Cough (Acute) Allergic asthma (Acute) Nephrolithiasis (Chronic) Environmental allergies (Acute) Medical History Osteoarthritis ADHD Pt. denies Hypomagnesemia Heart murmur Anemia Liver nodule Onychomycosis Vertigo Resting tremor Arthralgia Prediabetes HTN (hypertension) HLD (hyperlipidemia) Hot flashes SOB (shortness of breath) Dysuria Urinary frequency Dysfunctional voiding of urine Cholelithiasis pt. denies Disc degeneration Surgical History (Updated 12/01/23 @ 10:40 by Eugenio Sweet RN) H/O detached retina repair History of arthrodesis metacarpophalangeal joint, with or without internal fixation History of ureteroscopy History of appendectomy History of lobectomy of thyroid Social History Smoking/Tobacco Use Status: Former Tobacco Use Quit Date: 02/23/79 Smoking risk assessment performed?: Yes Alcohol Intake: never Drug use: Never Substance use type: does not use Housing: house Do you feel safe at home: Yes Additional Social history: lives alone Readmission Within the Past 30 Days Yes or No: No SDOH(Care Management) Screening Will the Patient Participate in the Screening?: Yes Do you worry about having a steady place to live?: no In the past 12 months, have you had to go without electric, gas, oil or water in your home?: no Have you or anyone in your house had to go without enough food to eat?: no Has lack of transportation kept you from medical appointments or from doing things needed for daily living?: no Has anyone in your support network made you feel unsafe for any reason?: no Anticipated HH Services Anticipated HH Services at Discharge ANAT[facility] (Shala Salomon) Services Needed (RN/PT).
--- NOTE | 2023-12-02 17:39 | NUR.NOTE ---
Nursing Note: Patient very anxious about discharge plan. Patient talking non stop, very rapid speech. Pt was escorted to the bathroom using a walker and 2 person assist (myself and PACHECO Schreiber). Patient then reported to Yolanda RN that we let her fall in the bathroom and she was lifted off the floor by Candie. This did not happen. Patient did not fall. Patient did go to reach for something off the floor and was told by us not worry about the facecloth. She didn't stumble or loose balance. Patient then walked back to bed and was repositioned, ice and heat applied.
[2023-12-02 20:09] VITALS: BP 127/76; PULSE 80; RESP 15; TEMP 36.2; O2SAT 96
[2023-12-02] MEDS: Gabapentin 300 MG CAP PO (20:30)
[2023-12-02] MEDS: Docusate Sodium 100 MG CAP PO (22:03)
[2023-12-02 23:25] VITALS: BP 96/62; PULSE 85; RESP 14; TEMP 36.3; O2SAT 94
[2023-12-03 03:22] VITALS: BP 111/49; PULSE 83; RESP 15; TEMP 36.4; O2SAT 96
[2023-12-03] MEDS: Celecoxib 200 MG CAP PO (08:05)
[2023-12-03] MEDS: Potassium Citrate 1080 MG TABCR PO (08:05)
[2023-12-03] MEDS: oxyCODONE 5 MG TAB PO ×3 (08:05→13:36)
[2023-12-03] MEDS: Acetaminophen 500 MG TAB 1000 MG PO ×2 (08:05→13:02)
[2023-12-03] MEDS: Pantoprazole 40 MG TABCR PO (08:05)
[2023-12-03] MEDS: Aspirin E.C. 81 MG TABEC PO (08:05)
[2023-12-03 09:06] VITALS: BP 129/70; PULSE 81; RESP 17; TEMP 36.1; O2SAT 97
--- NOTE | 2023-12-03 09:58 | PDOC.CMDIS ---
Date of service: 12/03/23 Time of Service: 09:58 LACE Index Scoring Tool Questions: Length of Stay (in days): 2 Was the patient admitted via the E.D.?: No E.D. Visits: 0 Answers: Total Score: 2 Risk of Readmission: Low Risk Care Management Discharge Plan Reason for Hospitalization: Left total knee replacement and right knee injection Discharge Plan: Miroslava is discharged home today with new orders for HH PT through [facility]. She also has detailed instructions regarding her medications and physical activity. Miroslava will f/u with ortho in 2 weeks and with her PCP as needed. She will begin outpatient PT on 12/14. She will continue to follow her prescribed plan of care. Miroslava will transport via [facility] wheel chair van as arranged by CM. Patient/Family Education Needs: Review of discharge instructions, activity, limitations, f/u plan and discuss Ask me 3. Services Needed at Discharge: Home Health Care Services and Physical Therapy ([facility]) SDOH Health Related Social Needs: No Data to Display
--- NOTE | 2023-12-03 10:27 | W.PM.DSUDISC ---
Date of service: 12/03/23 Time of Service: 09:40 Discharge Plan Disposition Patient Disposition: Home Condition: Good Discharge Details Reason For Visit: Left knee DJD Admit Date/Time: 12/01/23 14:10 Admit Provider: Shai Story Attending Provider: Shai Story Primary Care Provider: Lidia Clay Hospital Course Hospital Course: Patient was admitted to the medical/surgical floor following the procedure. The surgery was tolerated well without any notable medical, surgical, or anesthetic complications. Mobilization began postoperatively. She did well for the first mobilization period but then developed some muscle pain and weakness. This required change in medications and therapy. She was voiding spontaneously. Vitals were stable. We continued to work through this weakness and pain. Physical therapy worked with the patient and was thus cleared for discharge home. No acute medical issues. Pain was controlled on oral regimen. Home Meds and New Rx's Prescriptions: New docusate sodium [Colace] 100 mg capsule 100 mg PO BID Qty: 30 0RF oxycodone 10 mg tablet 10 mg PO Q4H PRNQty: 30 0RF polyethylene glycol 3350 17 gram/dose powder 17 g PO BID PRNQty: 238 0RF Continued polysaccharide iron complex 150 mg iron capsule 150 mg PO .4 a day iodine 150 mcg tablet 150 mcg PO DAILY albuterol sulfate 90 mcg/actuation HFA aerosol inhaler 2 puff inhalation 4XD PRN (Reason: shortness of breath or wheezing) Qty: 8.5 12RF selenium 200 mcg tablet 200 mcg PO DAILY ascorbic acid (vitamin C) 1,000 mg capsule 1 g PO DAILY cetirizine [All Day Allergy (cetirizine)] 10 mg tablet 10 mg PO DAILY PRN glucosamine [id number]-[id number] 375-250-300 mg tablet extended release See Rx Instructions PO DAILY Rx Instructions: 3000mg-2400mg orally daily; ondansetron HCl 4 mg tablet 4 mg PO Q8H PRN budesonide 0.5 mg/2 mL suspension for nebulization 0.5 mg inhalation BID PRN (Reason: Dyspnea, wheezing, illness) Qty: 360 7RF potassium citrate [Urocit-K 10] 10 mEq (1,080 mg) tablet extended release 10 meq PO DAILY Qty: 90 4RF Dupixent Pen 300 mg/2 mL pen injector 300 mg subcut Q2W Qty: 12 4RF magnesium glycinate 100 mg tablet 1,000 mg PO BID fluticasone propion-salmeterol [Advair HFA] 230-21 mcg/actuation HFA aerosol inhaler 2 puff inhalation BID Qty: 12 12RF norethindrone acetate 5 mg tablet 5 mg PO DIRECTED Discontinued indomethacin 25 mg capsule 25 mg PO BID PRN Rx Instructions: administer with food or milk aspirin [Adult Aspirin Regimen] 81 mg tablet,delayed release (DR/EC) 81 mg PO DAILY No Action aspirin 81 mg tablet,delayed release (DR/EC) 81 mg PO BID 30 Days Qty: 60 0RF acetaminophen 500 mg tablet 1,000 mg PO Q8H PRN Qty: 90 0RF Rx Instructions: Take two tablets up to every 8 hours as needed for pain celecoxib [Celebrex] 200 mg capsule 200 mg PO BID PRN (Reason: pain) Qty: 60 0RF Rx Instructions: Take one tablet twice daily for pain and inflammation gabapentin 300 mg capsule 300 mg PO QHS Qty: 14 0RF Rx Instructions: Take one tablet at bedtime pantoprazole 40 mg tablet,delayed release (DR/EC) 40 mg PO DAILY Qty: 14 0RF Discharge Instructions Additional Instructions: Total Knee Discharge Instructions Activity: The most important activity is to walk and to work on gentle motion (both flexion and extension). You should try to take short walks a few times a day. It is important that when resting you work on keeping the knee straight. Avoid putting a pillow behind the knee as this will encourage flexion. Work on range of motion exercises as provided by Physical Therapy. - Start outpatient physical therapy within 2 weeks. - You should wear the MICHELLE hose on both legs for 2 weeks. You may remove these at night. You may also use any compression sock in place of the MICHELLE hose. - Utilize [employer] to review exercises, see videos on exercises and obtain basic information pertaining to your surgery and your recovery. Dressing: Remove the Caleb wrap by 2 days after your surgery and put on the MICHELLE stocking given to you from the hospital. Keep the surgical dressing (underneath the CALEB wrap) in place for at least one week. After the first week it may be removed and replaced with light gauze and tape or nothing. The wound and dressing may get wet after 3 days but avoid soaking the dressing or otherwise it will need to be changed. Many people prefer covering the dressing with cling wrap (saran wrap) to minimize it from getting soaked. If it gets wet, just pat dry. If it starts to peel off then it will need to be changed. Medications: - You should take Tylenol and anti-inflammatory Celebrex as your primary pain control medications. If the Celebrex is too expensive or not covered, please call the office for another alternative (Advil/Ibuprofen or Naproxen/Aleve) - You have been prescribed a stronger pain medication Oxycodone for breakthrough pain, take as needed as prescribed. - You have also been prescribed a stomach acid reduction agent Pantoprozole to help reduce stomach acid and reflux. - You have been prescribed Gabapentin to take at night for restlessness and nerve pain. - You will be taking Aspirin 81mg twice a day for DVT prevention unless instructed otherwise. - You have also been prescribed Decadron to take to control post-operative nausea and pain. You will start this tomorrow. - If you have constipation you should take Colace (which has been prescribed) or Miralax (which is available [id number]). It takes most people 3-4 days to have a bowel movement. Follow-up: 2 weeks If you have any acute concerns or questions, please do not hesitate to contact the office at [phone]. You may contact Dr. Story with any questions after hours through the hospital at [phone] or on his cell phone at [phone]. 1. Encounter Date and Reason I certify that Miroslava Aggarwal was seen by Shai Story MD on 12/03/23 and that I had a [id number]-[id number] encounter with this patient that meets the physician face to face encounter requirements. 2. Clinical Findings Supporting Skilled Need and Homebound Status I certify that home health services are medically necessary, include either intermittent alf and/or physical/speech therapy, and that this patient is homebound in that absences from the home require considerable and taxing effort and are infrequent or of short duration, or are attributable to the need to receive medical care. [X] (a) Attached documentation from encounter provides clinical findings supporting skilled need and homebound status (including what assistance patient requires to leave the home). The encounter with the patient was in whole, or in part, for the following medical condition, which is the primary reason for home health care: Left knee DJD Nursing Home: Physical Therapy: Miroslava would benefit from home health physical therapy and occupational therapy to assist with recovery from left knee replacement. Therapy should focus on independent ambulation within her home with a focus on range of motion and quadriceps strengthening; weight bearing as tolerated. Speech Therapy: Homebound: Miroslava is unable to leave her home unassisted due to weakness and gait dysfunction 3. Certification and Authentication I certify that I composed the above information based on my clinical judgement relating to this patient's medical condition and, if applicable, clinical findings communicated to me by the NPP or inpatient physician who performed the Home Health Referral. All further orders will be obtained through Dr. Shai Story Stand Alone Forms: Anesthesia Discharge Inst., Anes.Nerve Block Instructions Referrals: Shai Story MD [ [facility] STAFF PHYSICIAN] - Activity:: Activity as Tolerated Equipment/Supplies:: Walker Diet:: As Tolerated
--- NOTE | 2023-12-03 10:52 | DSE_ITS ---
Date of service: 12/03/23 Time of Service: 10:52 DS: Diagnosis Discharge Diagnosis (1) History of total left knee replacement: Status: Acute (2) Muscle weakness of lower extremity: Status: Acute Discharge Plan Disposition Patient Disposition: Home W/Home Health Services Condition: Good Discharge Details Reason For Visit: Left knee DJD Admit Date/Time: 12/01/23 14:10 Admit Provider: Shai Story Attending Provider: Shai Story Primary Care Provider: Lidia Clay Hospital Course Hospital Course: Patient was admitted to the medical/surgical floor following the procedure. The surgery was tolerated well without any notable medical, surgical, or anesthetic complications. Mobilization began postoperatively. She did well for the first mobilization period but then developed some muscle pain and weakness. This required change in medications and therapy. She was voiding spontaneously. Vitals were stable. We continued to work through this weakness and pain. Physical therapy worked with the patient and was thus cleared for discharge home. No acute medical issues. Pain was controlled on oral regimen. Home Meds and New Rx's Prescriptions: New docusate sodium [Colace] 100 mg capsule 100 mg PO BID Qty: 30 0RF oxycodone 10 mg tablet 10 mg PO Q4H PRNQty: 30 0RF polyethylene glycol 3350 17 gram/dose powder 17 g PO BID PRNQty: 238 0RF Continued polysaccharide iron complex 150 mg iron capsule 150 mg PO .4 a day iodine 150 mcg tablet 150 mcg PO DAILY albuterol sulfate 90 mcg/actuation HFA aerosol inhaler 2 puff inhalation 4XD PRN (Reason: shortness of breath or wheezing) Qty: 8.5 12RF selenium 200 mcg tablet 200 mcg PO DAILY ascorbic acid (vitamin C) 1,000 mg capsule 1 g PO DAILY cetirizine [All Day Allergy (cetirizine)] 10 mg tablet 10 mg PO DAILY PRN glucosamine [id number] 375-250-300 mg tablet extended release See Rx Instructions PO DAILY Rx Instructions: 3000mg-2400mg orally daily; ondansetron HCl 4 mg tablet 4 mg PO Q8H PRN budesonide 0.5 mg/2 mL suspension for nebulization 0.5 mg inhalation BID PRN (Reason: Dyspnea, wheezing, illness) Qty: 360 7RF potassium citrate [Urocit-K 10] 10 mEq (1,080 mg) tablet extended release 10 meq PO DAILY Qty: 90 4RF Dupixent Pen 300 mg/2 mL pen injector 300 mg subcut Q2W Qty: 12 4RF magnesium glycinate 100 mg tablet 1,000 mg PO BID fluticasone propion-salmeterol [Advair HFA] 230-21 mcg/actuation HFA aerosol inhaler 2 puff inhalation BID Qty: 12 12RF norethindrone acetate 5 mg tablet 5 mg PO DIRECTED Discontinued indomethacin 25 mg capsule 25 mg PO BID PRN Rx Instructions: administer with food or milk aspirin [Adult Aspirin Regimen] 81 mg tablet,delayed release (DR/EC) 81 mg PO DAILY No Action aspirin 81 mg tablet,delayed release (DR/EC) 81 mg PO BID 30 Days Qty: 60 0RF acetaminophen 500 mg tablet 1,000 mg PO Q8H PRN Qty: 90 0RF Rx Instructions: Take two tablets up to every 8 hours as needed for pain celecoxib [Celebrex] 200 mg capsule 200 mg PO BID PRN (Reason: pain) Qty: 60 0RF Rx Instructions: Take one tablet twice daily for pain and inflammation gabapentin 300 mg capsule 300 mg PO QHS Qty: 14 0RF Rx Instructions: Take one tablet at bedtime pantoprazole 40 mg tablet,delayed release (DR/EC) 40 mg PO DAILY Qty: 14 0RF Discharge Instructions Additional Instructions: Total Knee Discharge Instructions Activity: The most important activity is to walk and to work on gentle motion (both flexion and extension). You should try to take short walks a few times a day. It is important that when resting you work on keeping the knee straight. Avoid putting a pillow behind the knee as this will encourage flexion. Work on range of motion exercises as provided by Physical Therapy. - Start outpatient physical therapy within 2 weeks. - You should wear the MICHELLE hose on both legs for 2 weeks. You may remove these at night. You may also use any compression sock in place of the MICHELLE hose. - Utilize [employer] to review exercises, see videos on exercises and obtain basic information pertaining to your surgery and your recovery. Dressing: Remove the Caleb wrap by 2 days after your surgery and put on the MICHELLE stocking given to you from the hospital. Keep the surgical dressing (underneath the CALEB wrap) in place for at least one week. After the first week it may be removed and replaced with light gauze and tape or nothing. The wound and dressing may get wet after 3 days but avoid soaking the dressing or otherwise it will need to be changed. Many people prefer covering the dressing with cling wrap (saran wrap) to minimize it from getting soaked. If it gets wet, just pat dry. If it starts to peel off then it will need to be changed. Medications: - You should take Tylenol and anti-inflammatory Celebrex as your primary pain control medications. If the Celebrex is too expensive or not covered, please call the office for another alternative (Advil/Ibuprofen or Naproxen/Aleve) - You have been prescribed a stronger pain medication Oxycodone for breakthrough pain, take as needed as prescribed. - You have also been prescribed a stomach acid reduction agent Pantoprozole to help reduce stomach acid and reflux. - You have been prescribed Gabapentin to take at night for restlessness and nerve pain. - You will be taking Aspirin 81mg twice a day for DVT prevention unless instructed otherwise. - You have also been prescribed Decadron to take to control post-operative nausea and pain. You will start this tomorrow. - If you have constipation you should take Colace (which has been prescribed) or Miralax (which is available [id number]). It takes most people 3-4 days to have a bowel movement. Follow-up: 2 weeks If you have any acute concerns or questions, please do not hesitate to contact the office at [phone]. You may contact Dr. Story with any questions after hours through the hospital at [phone] or on his cell phone at [phone]. 1. Encounter Date and Reason I certify that Miroslava Aggarwal was seen by Shai Story MD on 12/03/23 and that I had a [id number] encounter with this patient that meets the physician face to face encounter requirements. 2. Clinical Findings Supporting Skilled Need and Homebound Status I certify that home health services are medically necessary, include either intermittent long term and/or physical/speech therapy, and that this patient is homebound in that absences from the home require considerable and taxing effort and are infrequent or of short duration, or are attributable to the need to receive medical care. [X] (a) Attached documentation from encounter provides clinical findings supporting skilled need and homebound status (including what assistance patient requires to leave the home). The encounter with the patient was in whole, or in part, for the following medical condition, which is the primary reason for home health care: Left knee DJD Retirement: Physical Therapy: Miroslava would benefit from home health physical therapy and occupational therapy to assist with recovery from left knee replacement. Therapy should focus on independent ambulation within her home with a focus on range of motion and quadriceps strengthening; weight bearing as tolerated. Speech Therapy: Homebound: Miroslava is unable to leave her home unassisted due to weakness and gait dysfunction 3. Certification and Authentication I certify that I composed the above information based on my clinical judgement relating to this patient's medical condition and, if applicable, clinical findings communicated to me by the NPP or inpatient physician who performed the Home Health Referral. All further orders will be obtained through Dr. Shai Story Stand Alone Forms: Anesthesia Discharge Inst., Anes.Nerve Block Instructions Referrals: Shai Story MD [ [facility] STAFF PHYSICIAN] - Activity:: Activity as Tolerated Equipment/Supplies:: Walker Diet:: As Tolerated Discharge Orders Discharge Orders: Discharge Order (Routine); Ordered 12/03/23 Ordered By: Shai Story DS: Summary Time Spent with Patient providing and/or coordinating discharge services: Less than 30 minutes Status at Discharge Functional status at discharge: uses cane/walker Overall status at discharge: patient is progressing back to baseline Mental Status: mental status grossly normal Speech and Movement: speech and movement normal Mood: congruent mood Affect: normal affect Quality:SDOH Health Related Social Needs: No Data to Display Exam Narrative Exam Narrative: Sitting up in the bed. NAD. AAOx3. LLE Dressing c/d/i. +ADF/APF/EHL/FHL SILT DP/SP/Tib. Psych Mental Status: mental status grossly normal Speech and Movement: speech and movement normal Mood: congruent mood Affect: normal affect DS: Data Vitals/I&O Vitals and I&O: Vital Signs Temperature 36.1 C L 12/03/23 09:06 Temperature Source Temporal Artery Scan 12/03/23 09:06 Pulse 81 12/03/23 09:06 Pulse Rhythm Regular 12/01/23 10:31 Pulse 93 H 12/01/23 15:11 Respiratory Rate 17 12/03/23 09:06 Respiratory Depth Normal 12/01/23 10:31 Blood Pressure 129/70 12/03/23 09:06 Blood Pressure Mean 122 12/01/23 15:10 Blood Pressure Position Supine 12/01/23 11:41 Pulse Oximetry 97 12/03/23 09:06 Respiratory End-tidal CO2 30 12/01/23 15:11 Oxygen Delivery Method Room Air 12/03/23 09:06 Oxygen Flow Rate 0 12/03/23 09:06 Pain Level 0 12/03/23 09:06 Comment Rn in room 12/02/23 08:05 Intake & Output 12/02/23 12/02/23 12/03/23 11:59 23:59 11:59 Intake Total 100 / 600 500 / 600 Balance 100 / 600 500 / 600 Intake: IV 100 / 100 Oral 500 / 500 Other: Urine Color Yellow Yellow Urine Appearance Clear Urine Odor Normal Comment Voided in toilet unsure of amount Voiding Methods Toilet PFSH All Active Problems (Updated 12/03/23 @ 10:25 by Shai Story MD) Muscle weakness of lower extremity (Acute) History of total left knee replacement (Acute 12/01/23) Osteoarthritis of right knee (Acute) Osteoarthritis of left knee (Acute) Asthma (Chronic) Aortic valve disorder (Acute) Abnormal CXR (Acute) Frostbite (Acute) Low vitamin B12 level (Acute) Neuropathy (Acute) Tinea pedis (Acute) Fatigue (Acute) Muscle cramping (Acute) Retention of urine (Acute) Allergic rhinitis due to pollen (Acute) Chest pain (Acute) Cough (Acute) Allergic asthma (Acute) Nephrolithiasis (Chronic) Environmental allergies (Acute) Medical History (Updated 12/03/23 @ 10:25 by Shai Story MD) Osteoarthritis ADHD Pt. denies Hypomagnesemia Heart murmur Anemia Liver nodule Onychomycosis Vertigo Resting tremor Arthralgia Prediabetes HTN (hypertension) HLD (hyperlipidemia) Hot flashes SOB (shortness of breath) Dysuria Urinary frequency Dysfunctional voiding of urine Cholelithiasis pt. denies Disc degeneration Surgical History (Updated 12/01/23 @ 10:40 by Eugenio Sweet RN) H/O detached retina repair History of arthrodesis metacarpophalangeal joint, with or without internal fixation History of ureteroscopy History of appendectomy History of lobectomy of thyroid Social History Smoking/Tobacco Use Status: Former Tobacco Use Quit Date: 02/23/79 Smoking risk assessment performed?: Yes Alcohol Intake: never Drug use: Never Substance use type: does not use Housing: house Do you feel safe at home: Yes Additional Social history: lives alone Time Spent with Patient Time Spent with Patient: <45 minutes Time was spent: preparing to see the patient(eg.review tests), obtaining and/or reviewing separately otained hiistory and counseling the patient
[2023-12-03] MEDS: Polyethylene Glycol 3350 17 GM PACKET PO (11:26)
--- NOTE | 2023-12-03 13:34 | PT.INTREAT ---
PT Notes Visit Reasons: Left knee DJD Inpatient Physical Therapy Treatment Note [facility] Date: 12-03-2023 PRECAUTIONS: Weightbearing as tolerated bilateral lower extremities, standard, fall risk SUBJECTIVE: Patient reporting less pain and able to move her left lower extremity. She reports her biggest concern today is lack of bowel movement nursing is aware. Patient apologizing for her tearful and forgetfulness yesterday stating it was related to the medications and she is feeling much better today. OBJECTIVE: Patient presents seated in recliner bilateral lower extremities on elevated with Cryo/Cuff in place to left knee and heat to proximal left thigh outer hip. Patient able to demonstrate donning and doffing of Cryo/Cuff independently.? PAIN: 3/10 left knee/thigh/posterior knee VITALS: ?Monitored by nursing Therapeutic Activities (20047m3): Direct one-on-one instruction in dynamic activities to improve functional performance. ? BED MOBILITY/TRANSFERS? Supine-sit: Independent without use of upper extremities? Sit-supine: Independent without use of upper extremities to move left lower extremity? Sit-stand: Independent ? Stand-sit: Independent from greater than 20 inch height less than 20 inch height patient required verbal cue to bring left lower extremity forward prior to sitting to reduce potential for increased pain in the left knee ? Chair-bed: Modified independent with FWW patient dragging left lower extremity difficulty advancing ? Ambulation: with FWW supervision 150 feet with cue for sequencing walker, left lower extremity, right lower extremity and cue for heel contact instead of toe contact first. Patient demonstrated ability to carry this over without cueing. (Written instructions given to patient at her request.) Second session ambulation with FWW 221 feet modified independence without cues for sequencing patient able to carryover from initial session this morning stairs 4 x 6 inch with rail supervision cues for sequencing Therapeutic exercise 73662 Quad set, ankle pumps, short arc quad 5 reps x 2 sets left lower extremity ASSESSMENT: Patient with significant improvement return to abilities of yesterday morning at supervision level for functional mobility. Patient able to demonstrate quad set with cue to squeeze thigh to ensure no compensation from glutes and hamstring. Patient able to demonstrate bed mobility without use of upper extremities patient with intermittent report of proximal quad and along IT band discomfort during transitions from sit to stand. Patient demonstrated ability to climb stairs during second session written instructions for gait sequencing and stair sequencing provided to patient. Anticipate patient to be discharged to home on this date PLAN: Continued skilled PT for strengthening motor control left lower extremity functional ability gait and stairs until medically appropriate for discharge TREATMENT CODE/TIME: 63617 x 33 minutes for 2 units, 22853 x 14 minutes for 1 unit/835?922 Second session 36613 x 2 units 1135?1201 DISCHARGE RECOMMENDATION: Home with PT prior to outpatient PT
--- NOTE | 2023-12-03 14:26 | AC.ASSESS ---
Asthma Clinic Visit
--- NOTE | 2023-12-03 14:26 | CHAPLAIN ---
Miroslava is recovering from knee surgery. She is originally from [facility] [facility], but has lived all the country and in the [place]. She lives [place] the best. She moved to [place] because her son is a member of the [employer]. Miroslava has enjoyed living close to her son and his family and meeting local people in [place]. She was raised Protestant, but has also investigated other faiths as well. Miroslava said she was very happy that someone recommended Dr. Story to her.
== END 2023-12-03 13:56 | disposition home health service (06) ==
LOC: MS 15:33
PROVIDERS: Admitting Provider Student in an Organized Health Care Education/Training Program; PCP Physician Assistant; Visit Provider Student in an Organized Health Care Education/Training Program
PROC: (CPT 27447; principal; 2023-12-01 12:45)
DX: M17.11 Unilateral primary osteoarthritis, right knee (principal); J45.909 Unspecified asthma, uncomplicated; D64.9 Anemia, unspecified; Z79.899 Other long term (current) drug therapy; I10 Essential (primary) hypertension; E78.5 Hyperlipidemia, unspecified; R73.03 Prediabetes; Z96.652 Presence of left artificial knee joint; M62.81 Muscle weakness (generalized)
CPT/HCPCS: 27447; 20985; 76942; 94640; 97110; 97112; 97162; 97530; C1776; C9290; J0665; J0690; J1010; J1100; J1171; J2003; J2060; J2405; J2704; J3010; J8540

== ENCOUNTER 2023-12-14 10:30 | Outpatient (CLI) | payer MEDICARE, SELFPAY ==
[2023-12-14 10:59] LABS: Nucleated Cells 1286 uL (0); Source Synovial
[2023-12-14 11:02] LABS: Mononuclear Cells 10 %; Polynuclear Cells 90 %
[2023-12-14 11:15] LABS: Clarity Cloudy
== END 2023-12-14 10:31 | disposition home or self-care (01) ==
LOC: LBN 10:33
PROVIDERS: PCP Physician Assistant; Referring Provider Physician Assistant; Visit Provider Student in an Organized Health Care Education/Training Program
DX: Z96.652 Presence of left artificial knee joint (principal)
CPT/HCPCS: 87070; 87205; 89051

== ENCOUNTER 2023-12-14 15:38 | Outpatient (CLI) | payer MEDICARE, SELFPAY ==
--- NOTE | 2023-12-14 09:00 | DI.RAD_ITS ---
Exam(s) XR KNEE LT 1V EXAM: XR KNEE LT 1V CLINICAL HISTORY: 1ST POST OP S/P L TKA. TECHNIQUE: 2D digital imaging was performed. COMPARISON: CR XR KNEE RT 4V AP,LAT,RENAY,PAT from 11/18/2023 CR XR KNEE LT 1V from 11/18/2023 FINDINGS: Single lateral view Satisfactory position alignment of the components of the recently placed left knee prosthesis. No fr acture or loosening evident. There is evidence of patellar resurfacing. There is abundant soft tissue swelling anterior to the patella and distal quadriceps and patellar lig ament. There is no radiopaque foreign body. IMPRESSION: Satisfactory appearance of prosthesis. Prominent anterior prepatellar soft tissue swelling DATA REPOSITORY: RADIATION DOSE DELIVERED:
--- NOTE | 2023-12-14 09:00 | DI.RAD_ITS ---
Exam(s) XR STANDING ALIGNMENT EXAM: XR STANDING ALIGNMENT CLINICAL HISTORY: 1ST POST OP S/P L TKA. TECHNIQUE: 2D digital imaging was performed. COMPARISON: CR XR STANDING ALIGNMENT from 11/18/2023 FINDINGS: 3 views There has been interval placement of a left knee prosthesis which appears satisfactory. There are mi ld-moderate degenerative changes in the lateral compartment of the opposite-right knee again noted. Medial compartment appears unremarkable. Hips appear unremarkable as do the ankles. No osseous lesions. IMPRESSION: As above. DATA REPOSITORY: RADIATION DOSE DELIVERED:
== END 2023-12-14 15:39 | disposition home or self-care (01) ==
LOC: DIORS 15:39
PROVIDERS: PCP Physician Assistant; Referring Provider Physician Assistant; Visit Provider Student in an Organized Health Care Education/Training Program
DX: Z96.652 Presence of left artificial knee joint (principal); Z47.1 Aftercare following joint replacement surgery
CPT/HCPCS: 99024; 73560; 77073

== ENCOUNTER 2024-01-07 01:03 | Outpatient (CLI) | payer MEDICARE, SELFPAY ==
[2024-01-07 11:18] LABS: HCT 44.1 % (36.0-46.0); HGB 14.3 g/dL (11.2-15.7); MCH 29.1 pg (27.0-33.0); MCHC 32.4 % (32.0-36.0); MCV 90 fL (80-95); MPV 9.2 fL (8.0-11.0); Platelet Count 366 10^3/uL (130-400); RBC 4.91 10^6/uL (3.93-5.22); RDW 13.2 % (11.7-14.6); RDW-SD 43.2 fL; WBC 9.38 10^3/uL (4.4-10.8)
[2024-01-07 11:28] LABS: Anion Gap 11.2 mmol/L (3-11); BUN 11 mg/dL (7-18); CO2 24.8 mmol/L (21.0-32.0); CREATININE 0.9 mg/dL (0.55-1.02); Calcium 9.9 mg/dL (8.5-10.1); Chloride 108 mmol/L (98-107); Estimated GFR 68.35 (mL/min/1.73m2); Glucose 110 mg/dL (74-106); Potassium 3.8 mmol/L (3.5-5.1); Sodium 144 mmol/L (136-145)
[2024-01-07 12:09] LABS: Lab Add On Test DONE
[2024-01-07 12:18] LABS: C-Reactive Protein 1.34 mg/dL (<or=0.5)
[2024-01-07] MEDS: Normal Saline - Diluent 50 ML VIAL IJ (12:48)
[2024-01-07] MEDS: Omnipaque 350 MG/ML 500 ML BTL-Imaging package 100 ML IJ (12:49)
--- NOTE | 2024-01-07 12:50 | DI.CT_ITS ---
Exam(s) CT LOWER EXTREMITY LT W EXAM: CT LOWER EXTREMITY LT W CLINICAL HISTORY: PAIN, S/P L TKA-DOS 12/01/23,m62.81,z96.652. TECHNIQUE: Imaging Protocol: Axial computed tomography images with coronal and sagittal reformatted images were created and reviewed. CONTRAST MATERIAL: Intravenous: Omnipaque 350 Contrast volume:100 ml Contrast route:IV - COMPARISON: CR XR KNEE LT 1V from 12/14/2023 CR XR STANDING ALIGNMENT from 12/14/[address] HIP LT WO CONTRAST from 12/23/2023 CR XR KNEE COMPLETE MIN 4V LT from 12/23/2023 FINDINGS: Exam limited by artifact due to presence of knee prosthesis. Bones: There is no evidence of fracture or dislocation. No cellulitic or osteomyelitic changes are identified. No lytic or sclerotic lesions are identified. Joints: Total knee prosthesis. Moderate-sized joint effusion.. Soft Tissues: Anterior soft tissue swelling. Anterior midline surgical scar. There is thickening of the distal quadriceps tendon which is likely secondary to surgery. No evidence of tear. Visualiz ed arteries appear patent without significant stenosis. IMPRESSION: Total knee prosthesis. No evidence of fracture or other acute bony abnormality. Joint effusion. Anterior soft tissue swelling and thickening of the quadriceps tendon. RADIATION DOSE DELIVERED: 220.22mGy.cm Total DLP DATA REPOSITORY: All CT scans at this facility are submitted to the National Radiology Data Registry (NRDR) Dose Index Registry (DIR) with the [employer] (A[employer]). RADIATION OPTIMIZATION: All CT scans at this facility use at least one of these dose optimization te chniques: automated exposure control; mA and/or kV adjustment per patient size (includes targeted exa ms where dose is matched to clinical indication); or iterative reconstruction.
== END 2024-01-07 01:23 ==
LOC: DI 01:03
PROVIDERS: PCP Physician Assistant; Visit Provider Student in an Organized Health Care Education/Training Program
DX: Z96.652 Presence of left artificial knee joint; T84.84XA Pain due to internal orthopedic prosthetic devices, implants and grafts, initial encounter
CPT/HCPCS: 80048; 85027; J1010; 73701; 82565; 86140

== ENCOUNTER 2024-01-07 14:40 | Outpatient (REF) | payer MEDICARE, SELFPAY ==
[2024-01-07 15:35] LABS: Clarity Clear
[2024-01-07 15:36] LABS: Nucleated Cells 400 uL (0)
[2024-01-07 15:45] LABS: Mononuclear Cells 91 %; Polynuclear Cells 9 %
== END 2024-01-07 14:41 | disposition home or self-care (01) ==
LOC: LBN 14:40
PROVIDERS: PCP Physician Assistant; Visit Provider Student in an Organized Health Care Education/Training Program
DX: Z96.652 Presence of left artificial knee joint (principal); Z47.1 Aftercare following joint replacement surgery
CPT/HCPCS: 87070; 87205; 89051

== ENCOUNTER → 2024-02-18 09:37 | Outpatient (BNVA) | payer MEDICARE, SELFPAY | PROVIDERS: PCP Physician Assistant; Referring Provider Physician Assistant; Visit Provider Physician Assistant | DX: Z47.1 Aftercare following joint replacement surgery (principal); Z96.652 Presence of left artificial knee joint; M17.11 Unilateral primary osteoarthritis, right knee; M25.561 Pain in right knee | CPT/HCPCS: 99213 ==

== ENCOUNTER 2024-04-06 09:41 | Observation (INO) | payer MEDICARE, SELFPAY ==
[2024-04-06] VITALS (46 sets, daily range): BP systolic 112–206; BP diastolic 53–134; PULSE 72–104; RESP 13–32; TEMP 36.2–36.6; O2SAT 84–99; BMI 30.5
--- NOTE | 2024-04-06 09:10 | W.ANESPRE ---
General Info Date of Service Date Performed: 04/06/24 Height: 5 ft 10.5 in Weight: 97.9 kg Body Mass Index (BMI): 30.5 Surgical Procedure: Operation Date: 04/06/24 11:10 Proposed Procedure Side Surgeon p Knee Total Arthroplasty Right Shai Story MD Meds Allergies and Home Medications Allergies Allergy/AdvReac Type Severity Reaction Status Date / Time cephalexin Allergy Intermediate Hives Verified 04/06/24 08:52 prednisone Allergy Mild rash Verified 04/06/24 08:52 adhesive tape Allergy unknown Verified 04/06/24 08:52 gentamicin Allergy unknown Verified 04/06/24 08:52 hydrogen peroxide Allergy Skin Rash Verified 04/06/24 08:52 nitrofurantoin (From Allergy unknown Verified 04/06/24 08:52 Macrodantin) sulfamethoxazole (From Allergy Skin Rash Verified 04/06/24 08:52 Bactrim) trimethoprim (From Bactrim) Allergy rash Verified 04/06/24 08:52 moderna vaccine Allergy Severe Other (See Uncoded 04/06/24 08:52 Comment) methylprednisilone Allergy Mild rash Uncoded 04/06/24 08:52 Home Medication ?Medication ?Instructions ?Recorded dupilumab 300 mg/2 mL subcutaneous 300 mg (2 mL) subcut Q2W #12 mL 01/28/22 pen injector (Easiest Credit Card To Get Approved For) iodine 150 mcg tablet 150 mcg PO DAILY 09/11/22 polysaccharide iron complex 150 mg 150 mg PO .4 a day 09/11/22 iron capsule fluticasone propionate 230 2 puff inhalation BID #12 grams 04/06/23 mcg-salmeterol 21 mcg/actuation HFA inhaler (Advair HFA) budesonide 0.5 mg/2 mL suspension 0.5 mg (2 mL) inhalation BID PRN 04/14/23 for nebulization Dyspnea, wheezing, illness #360 mL ondansetron HCl 4 mg tablet 4 mg PO Q8H PRN 04/14/23 albuterol sulfate 90 mcg/actuation 2 puff inhalation 4XD PRN 08/19/23 aerosol inhaler shortness of breath or wheezing #8.5 grams multivitamin with minerals-folic 1 tab PO DAILY 03/24/24 acid 80 mcg chewable tablet (Centrum Adult 50 Plus) albuterol sulfate 2.5 mg/3 mL 2.5 mg (3 mL) inhalation QID PRN 03/30/24 (0.083 %) solution for nebulization shortness of breath or wheezing #180 mL azithromycin 250 mg tablet See Rx Instructions PO .COMPLEX #6 03/30/24 tabs ascorbic acid (vitamin C) 500 mg 500 mg PO DAILY 04/06/24 tablet (C-500) echinacea 400 mg capsule 400 mg PO DAILY 04/06/24 indomethacin 50 mg capsule 50 mg PO BID 04/06/24 zinc 50 mg capsule 50 mg PO DAILY 04/06/24 Current Visit Medications: Current Medications Generic Name Dose Route Start Last Admin Trade Name Freq PRN Reason Stop Dose Admin Acetaminophen 1,000 mg 04/06/24 06:00 Acetaminophen 500 Mg Tab PO 05/05/24 23:59 PREOP ALON Celecoxib 400 mg 04/06/24 06:00 Celecoxib 200 Mg Cap PO 05/05/24 23:59 PREOP ALON Gabapentin 300 mg 04/06/24 06:00 Gabapentin 300 Mg Cap PO 05/05/24 23:59 PREOP ALON Cefazolin Sodium/Dextrose 2 gm in 50 mls @ 100 mls/hr 04/06/24 06:00 Ancef Duplex IVPB 05/05/24 23:59 PREOP ALON Tranexamic Acid/Sodium Chloride 1,000 mg in 100 mls @ 600 mls/hr 04/06/24 06:00 IVPB 05/05/24 23:59 PREOP ALON Ringer's Solution 1,000 mls @ 80 mls/hr 04/06/24 07:00 IV 05/06/24 06:59 [facility] IV Miscellaneous Supplies 1 each 04/06/24 06:00 Iv Access IV 05/05/24 23:59 DIRECTED ALON Sodium Chloride 0 ml 04/06/24 06:00 Normal Saline Flush 10 Ml Syr IV 05/05/24 23:59 PRN PRN Sodium Chloride 0 ml 04/06/24 06:00 Normal Saline 10 Ml Vial IJ 05/05/24 23:59 DIRECTED PRN Sterile Water 0 ml 04/06/24 06:00 Water,Injection,Sterile 10 Ml Vial IJ 05/05/24 23:59 DIRECTED PRN PFSH Active Problems Active Problems: Problem Status Onset Code Iliotibial band syndrome affecting right lower leg Acute M76.31 Trochanteric bursitis, left hip Acute M70.62 Muscle weakness of lower extremity Acute M62.81 History of total left knee replacement Acute 12/01/23 Z96.652 Osteoarthritis of right knee Acute M17.11 Asthma Chronic J45.909 Aortic valve disorder Acute I35.9 Abnormal CXR Acute R93.89 Frostbite Acute T33.90XA Low vitamin B12 level Acute R79.89 Neuropathy Acute G62.9 Tinea pedis Acute B35.3 Fatigue Acute R53.83 Muscle cramping Acute R25.2 Retention of urine Acute R33.9 Allergic rhinitis due to pollen Acute J30.1 Chest pain Acute R07.9 Cough Acute R05.9 Allergic asthma Acute J45.909 Nephrolithiasis Chronic N20.0 Environmental allergies Acute Z91.09 Medical History Medical History Osteoarthritis ADHD Pt. denies Hypomagnesemia Heart murmur Anemia Liver nodule Onychomycosis Vertigo Resting tremor Left pointer finger Arthralgia Prediabetes HTN (hypertension) HLD (hyperlipidemia) Hot flashes SOB (shortness of breath) Dysuria Urinary frequency Dysfunctional voiding of urine Cholelithiasis pt. denies Disc degeneration Surgical History Surgical History Hx of hysterectomy Hx of cholecystectomy H/O detached retina repair History of arthrodesis metacarpophalangeal joint, with or without internal fixation History of ureteroscopy History of appendectomy History of lobectomy of thyroid Tobacco Smoking/Tobacco Use Status: Former Tobacco Use Alcohol Alcohol Intake: never Substance Use Substance use: Never Substance use type: does not use Vital Signs and Lab Results Vital Signs Most Recent Vital Signs in EMR: Most Recent Vital Signs Temp Pulse Resp BP Pulse Ox 36.2 C L 104 H 20 165/82 H 99 04/06/24 08:39 04/06/24 08:39 04/06/24 08:39 04/06/24 08:39 04/06/24 08:39 Lab Results Blood Type / Crossmatch: No Data to Display Complete Blood Count: No Data to Display Complete Metabolic Panel: No Data to Display Liver Function Panel: No Data to Display Coagulation Panel: No Data to Display Cardiac Panel: No Data to Display Arterial Blood Gas: No Data to Display Venous Blood Gas: No Data to Display Pancreas Panel: No Data to Display Thyroid Panel: No Data to Display Infectious Disease: No Data to Display Blood Cultures: No Data to Display Toxicology Panel: No Data to Display Imaging and Studies Imaging and Studies Study information below may be from another EMR and interpreted by another provider. Please see original notes in EMR for more complete details. Stress Test Summary: 11/14: negative stress echo. LVEF 65%, mild to moderate diastolic dysfunction. mild . Pulmonary Function Summary: 09/13: normal PFTs. Anesthesia Assessment and Plan Anesthesia History Personal History: No History of Anesthesia Complications Family History: No Family History of Anesthesia Complications Exercise Tolerance Exercise Tolerance: Metabolic Equivalents<4 Pertinent Negatives Pertinent Negatives: No Symptoms of GERD, No Major Cardiovascular Symptoms or Complaints, No Major Pulmonary Symptoms or Complaints and No History of CVA/TIA Cardiac & Pulmonary Exam Cardiac Exam: Normal S1/S2 Heart Sounds Pulmonary Exam: Clear Bilateral Breath Sounds Implantable Cardiac Device Does patient have a Pacemaker or an ICD?: No Airway Exam Known Difficult Airway: No Mallampati Class: 3 Mouth Opening: Normal (> 3cm) Thyromental Distance: Greater than 3 cm Neck Range of Motion: Full ROM Neck Circumference: Normal Teeth Condition: Normal Dentition ASA Classification ASA Score: ASA 3 Emergency Case?: No NPO Status NPO Status: NPO Clears >2 hours, Solids >8 hours Anesthesia Plan Resuscitation Status: Full Code Anesthesia Technique: General Anesthesia Airway Planned: LMA Pain Management: Surgeon and patient request nerve block Monitors Used: Standard Monitors Preoperative Comments:: Hx of chronic cough with asthma, used neb and inhaler this am, lungs clear with diminished bases. Patient refusing spinal, would prefer GA like last time.
[2024-04-06] MEDS: Celecoxib 200 MG CAP 400 MG PO (09:36)
[2024-04-06] MEDS: Acetaminophen 500 MG TAB 1000 MG PO ×3 (09:36→21:28)
[2024-04-06] MEDS: Gabapentin 300 MG CAP PO ×2 (09:36→21:29)
[2024-04-06] MEDS: Lactated Ringers 1,000 ML 80 ML IV ×2 (09:45→16:05)
[2024-04-06] MEDS: ceFAZolin 2 GM/50 ML BAG IVPB (11:00)
[2024-04-06] MEDS: TRANEXAMIC ACID/SOD. CHL. 1,000 MG/100 ML BAG 600 MG IVPB (11:10)
--- NOTE | 2024-04-06 11:36 | W.ANESNERVE ---
Nerve Block Single Injection Procedure Date and Time Date Performed: 04/06/24 Procedure Start: 10:09 Location Where Procedure Performed Procedure Location: Day Surgery Unit Reason Performed: Postoperative Analgesia Requesting Provider: Shai Story Timeout Performed Timeout Performed: Yes Monitoring Used ECG, Blood Pressure, SpO2 and See EMR for corresponding vital signs Sterility Sterility: Hand Hygiene, Surgical Cap, Surgical Mask, Sterile Gloves, Sterile Drape/Sheet and Chlorhexidine Sedation Given During Procedure Sedation Given (Indicate Dose Given): Versed IV Dose:: 2 mg Patient Mental Status Patient Mental Status: Awake Nerve Block 1st Nerve Block: Laterality: Right Block Type: Adductor Canal Ultrasound Image Saved?: Yes Needle / Catheter Used: 100mm SonoPlex II Local Anesthetic Bolus (Indicate Dose Given): Lidocaine used for local infiltration of skin, Injected in 3-5ml increments after negative blood aspiration and Bupivacaine 0.25% Dose:: 15 ml Additives (Indicate Dose Given): None Ultrasound: Sterile probe cover and gel used Nerve Stimulator: Not Used Paresthesia: None Procedure Tolerated: No Complications and Patient tolerated well Procedure Outcome: Successful Performed By: Maureen Magana
--- NOTE | 2024-04-06 12:28 | ROE_ITS ---
Operative Note Operative Note PRE-OP DIAGNOSIS: Right Knee Osteoarthritis POST-OP DIAGNOSIS: same PROCEDURE: Right Total Knee Replacement SURGEON: Shai Story GASOLINE ENGINE ASSEMBLER: Rosalba Garsia ANESTHESIA TYPE: Spinal Refer to Anesthesia Record ESTIMATED BLOOD LOSS: 250 PATHOLOGY: none sent TOURNIQUET TIME: 0 COMPLICATIONS: None Patient was transported to: PACU Patient's condition: stable Implants: 1. Depuy Attune Cementless Cruciate Retaining Femoral Component, Size 9 2. Depuy Attune Cementless Fixed Bearing Tibial Component, Size 8 3. Depuy Attune 9x6mm CR/FB Poly 4. Depuy Attune Patellar Component, Size 38 Indications: I have seen Miroslava in clinic for symptoms of knee arthritis, confirmed with radiographic findings. She has exhausted nonoperative methods and was having significant limitations in daily function and desired better function and less pain. She had previous replacement on the left side which was complicated by ongoing pain and muscle cramping, which did improve. I discussed the technical details of a knee replacement. I explained the risks of the procedure to include, but not limited to, bleeding, infection, pain, stiffness, fracture, damage to nerves and vessels, damage to muscles and tendons, loosening, need for repeat procedure, blood clot and cardiopulmonary demise. Despite these risks, Miroslava elected to proceed. Findings: There was significant signs of arthritis throughout the knee. Procedure Description: Miroslava was greeted in the preoperative holding area where the correct side was identified and marked. The consent was reviewed with the patient and signed. The history and physical was updated. All questions were answered. Preoperative medications were administered: Acetaminophen 1000mg, Celebrex 400mg, and Gabapentin 300mg. An adductor canal block was then administered by the anesthesia team in the DSU. Miroslava was taken back to the operating room. A general anesthestic was then administered. The patient was placed into the supine position on the operating room table. Posts were placed for positioning during the procedure. All bony prominences were well padded. Prophylactic antibiotics in the form of Cefazolin were administered. 1g of Tranxemic Acid was given intravenously within 30 minutes of incision. The right leg was then prepped with Chloraprep and draped in a standard fashion with impervious stockinette. A second prep with Chloraprep was performed prior to application of Iodine impregnated skin protection. A timeout to confirm correct identity, side and site, procedure, allergies, anesthesia, and medical concerns was performed. With the knee in some flexion, a midline incision was made overlying the knee. Full thickness skin flaps were raised once the extensor mechanism was encountered. These were raised medially and laterally. Any bleeding was controlled with electrocautery. Once the extensor mechanism was fully exposed, a medial parapatellar arthrotomy was performed in a flexed position. All bleeding from the arthrotomy and the geniculate arteries was coagulated. A medial subperiosteal peel was performed with electrocautery to the midcoronal plane. The fat pad was removed while keeping the patellar tendon protected. The anterior distal femur synovium was removed for later visualization. The ACL and PCL were resected and the anterior horn of the lateral meniscus was transected. The knee was then flexed with the patella everted. Using a step drill, and based on preoperative templating, the femoral canal was entered. This was done with a step drill without any difficulty. The intramedullary distal femoral cut guide was inserted, set to a 4 degree valgus cut and 8mm cut thickness. The distal femoral cut guide was then held in position and pinned. With the soft tissues protected, the distal cut was performed. This was passed over a few times to ensure a planar cut. I then turned attention to the tibia. The extramedullary guide was placed onto the leg. The distal aspect was slid medial to adjust for position of center of ankle and stay in line with shaft of the tibia. Approximately 5 degrees of posterior slope was kept in the proximal cutting guide. The center of the guide was aligned with the PCL. The stylus was used to assess cut thickness. The medial side, most involved side, was set for a 4mm cut. This was then held in position and pinned into place with 2 additional pins and a cross pin for stability. The medial and lateral collateral ligaments were protected and the cut was performed. With this completed, it was assessed and noted to be of appropriate dimensions. The guide was removed. A spacer block was inserted and the knee was brought into extension. The 6mm spacer block provided full extension, without hyperextension and with stability of both the medial and lateral collateral ligaments was assessed. The pins from the femur and the tibia were then removed. The distal femur was then sized. The anterior stylus was placed onto the lateral ridge of the anterior femur. This indicated a size 9 femur. The external rotation of the guide was adjusted to 3 degrees to match the epicondylar axis, perpendicular to Pierce?s line. The 4-in-1 cutting guide was the placed, posteriorized by 3mm (2 notches). The posterior medial femur cut was evaluated and appeared of good thickness. The spacer block was inserted underneath the cutting guide and stability was confirmed in 90 degrees of flexion. An karen wing was used to confirm appropriate position of the anterior cut to avoid notching. This cutting guide was ensured to be flush on the cut kenney rface and then pinned into place with headed pins. While protecting the soft tissues, quad tendon, and collateral ligaments, the anterior and posterior cuts were performed with a saw. The central two pins were removed and the posterior and anterior chamfers were cut next. The notch-cutting guide was placed. This was pinned to lateralize the femoral component as much as possible while keeping it flush on the cut surface. This was then pinned into position. A reciprocating saw was used to make the notch cut. A rasp smoothed the cut surfaces. The medial and lateral menisci were removed. A trial femoral component was then inserted, impacted down to the cut surfaces, and the lug holes were drilled. A provisional trial tibial component was placed and the knee was brought through range of motion. There was noted to be excellent extension and flexion. There was no significant instability. The patella was tracking without thumbs. A size 6mm polyethylene component provided the best range of motion and stability with less than 2mm gapping with medial and lateral stress and full extension without significant hyperextension. The tibial cut surface was fully exposed. The tibia was then sized as a 8. The tibia had been previously marked during trialing to correspond to the center of the tibial component to help with rotation. The trial was aligned to this rosalba, approximately rotated to the medial 1/3rd of the tibial tubercle. The trial was pinned into place. The tibia was prepared with a reamer and a keel punch and lug holes. The knee was then brought into extension and the patella was measured as 26mm. Using the patellar clamp and cut guide, this was resected to a flat surface with at least 13mm of thickness remaining. The size 38 patella fit the best. This was oriented and then clamped into position. The lugs were drilled. The trial components were removed. The final components were opened on the back table. The periosteal and capsular tissues, especially posteriorly, around the knee were then systematically injected with a periarticular cocktail consisting of 246mg of Ropivacaine, 0.5mg of Epinephrine, 0.08mg of Clonidine, and 30mg of Ketorolac, diluted to 100cc. On the back table, with the implants opened, the cement was mixed. One batch of high viscosity cement was prepared with vacuum assistance. After the cement was ready a small amount was placed on the cut surface of the patella and the patellar button was clamped into position and held. While the cement was hardening, the cementless knee components were placed. Starting with the tibial component, the tibia was subluxed anteriorly and the lug holes of the component were lined up. The tibia was then impacted with an impactor and mallet until the tibial component was in contact with the tibia. The final polyethylene component was inserted. Then, the femoral component was inserted. The lug holes were aligned and the component was impacted into position. The knee was irrigated with Surgiphor Betadine solution. This was allowed to sit in the knee for 3 minutes and then it was irrigated out with saline. After the cement had finally cured, approximately 15min, the clamp was removed from the patella and the knee was taken through range of motion. The patella was tracking with a no-thumbs technique. The capsule was then reapproximated with a No. 1 Vicryl at multiple locations. The capsule was finally closed with a No. 2 Stratafix, barbed suture. The second dosing of 1g TXA was started. Deep tissues were then reapproximated with 0 Vicryl and 2-0 Vicryl. The skin was closed with a running 3-0 Monocryl in a subcuticular fashion. This was reinforced with skin glue. A Mepilex silver dressing was applied along with a [id number] MELANI wrap. A CryoCuff was applied. Miroslava was transferred to the hospital bed without difficulty an suffering no apparent complication. Miroslava has a good prognosis. Physical therapy will start today and without restrictions, weight-bearing as tolerated. Aspirin 81mg BID will be used for DVT prophylaxis. Date of Procedure: 04/06/24
[2024-04-06] MEDS: LORazepam 2 MG/ML VIAL 0.5 MG IVP (13:12)
[2024-04-06] MEDS: fentaNYL 100 MCG/2 ML VIAL IVP ×2 (13:14→13:23)
[2024-04-06] MEDS: DULoxetine 30 MG CAP 60 MG PO (14:23)
[2024-04-06] MEDS: Normal Saline Flush 10 ML SYR IV ×4 (14:24→21:32)
[2024-04-06] MEDS: Ketorolac 15 MG/ML VIAL IVP ×2 (16:04→21:33)
--- NOTE | 2024-04-06 16:05 | PT.INIE ---
PT Notes Visit Reasons: Right Knee Arthritis Physical Therapy Inpatient Initial Evaluation Date: 04/06/2024 Referring Doctor: Shai Romeo MD PT Orders: PT CONSULT: S/P Ortho Surgery Precautions: WBAT on R LE with AD. Patient Profile/Admitting Diagnosis: Miroslava ia a 73-year-old female degenerative joint disease of the right knee and is status post right total knee arthroplasty on postoperative day 0. She was S/P left total knee arthroplasty on 11/30/2024 with last oupatient PT session on 04/01/2024. PMHX: All Active Problems (Updated 03/24/24 @ 09:08 by NASRA Collado) Iliotibial band syndrome affecting right lower leg (Acute) DEPO MEDROL 01/07/24 Trochanteric bursitis, left hip (Acute) Muscle weakness of lower extremity (Acute) History of total left knee replacement (Acute 12/01/23) Osteoarthritis of right knee (Acute) Asthma (Chronic) Aortic valve disorder (Acute) Abnormal CXR (Acute) Frostbite (Acute) Low vitamin B12 level (Acute) Neuropathy (Acute) Tinea pedis (Acute) Fatigue (Acute) Muscle cramping (Acute) Retention of urine (Acute) Allergic rhinitis due to pollen (Acute) Chest pain (Acute) Cough (Acute) Allergic asthma (Acute) Nephrolithiasis (Chronic) Environmental allergies (Acute) Medical History Osteoarthritis ADHD Pt. deniesHypomagnesemia Heart murmur Anemia Liver nodule Onychomycosis Vertigo Resting tremor Arthralgia Prediabetes HTN (hypertension) HLD (hyperlipidemia) Hot flashes SOB (shortness of breath) Dysuria Urinary frequency Dysfunctional voiding of urine Cholelithiasis pt. denies Disc degeneration Surgical History H/O detached retina repair History of arthrodesis metacarpophalangeal joint, with or without internal fixation History of ureteroscopy History of appendectomy History of lobectomy of thyroid Social History/Home Situation: Lives alone in single level home with a ramp to enter and a step up onto the entrance of house where she has a door frame and a pole to hold onto for support. independent with all aspects of ADLs prior to surgery. Still drives. Unfortunately fell last week and incurred contusion in the R leg and thigh. Equipment Owned/DME: SPC, FWW Subjective: Complained of pain at 7-8/10 but was able to transfer from bed onto commode and then later onto bedside recliner. Reported mild lightheadedness long term through the walk. Denied headache and chest pain. Womdered when her next pain medication is due, relayed question to Nurse Migue who planned to see patient forto address issue with pain. Objective: General Observation: Nurses Bhavna and Samuel were helping patient sit up in bed when PT came in. IV through R UE. MELANI wraps to R LE. Mental Status: A and O x 4 Pain: As above ROM: Right Lower Extremity: Hip flexion WFL. Hip abduction WFL. Knee flexion 30-80 degrees degrees. Knee extension -30 degrees. Ankle dorsiflexion WFL. Ankle plantarflexion WFL. Left Lower Extremity: Hip flexion WFL. Hip abduction WFL. Knee flexion 0-95 degrees. Knee extension 95-0 degrees. Ankle dorsiflexion WFL. Ankle plantarflexion WFL. Strength: Right Lower Extremity: Hip flexors 4/5. Hip abductors 4/5. Knee flexors 3-/5. Knee extensors 3-/5. Ankle dorsiflexors 5/5. Ankle plantarflexors 5/5. Left Lower Extremity: HHip flexors 4/5. Hip abductors 4/5. Knee flexors 3-/5. Knee extensors 3-/5. Ankle dorsiflexors 5/5. Ankle plantarflexors 5/5. Sensation: Intact as to pain and light pressure in B LE Bed Mobility/Transfers: Minimal cueing provided for use of B hands as needed for support, movement sequence, AD management, and posture to reduce fall risk and minimize pain report Supine to sit minimal assist Sit to stand minimal assist of 2 with FWW Stand to sit minimal assist with FWW Bed to bedside commode minimal assist with FWW Bedside commode to bedside recliner minimal assist of 1 with FWW Gait: Facilitated safe and correct performance of level surface ambulation for3 steps from edge of bed to commode + 5 steps to from commode to bedside recliner + 40 feet in the hallway with IV pole management, wheelchair follow and intermittent contact guard assist of PT. Unable to fully extend R knee at midstance due to pain. Step-to gait pattern. Yolanda slowed. Stairs: Deferred Balance: Static Sitting: Normal Dynamic Sitting: Good Static Standing: Fair Dynamic Standing: Fair Special Tests: Mobility Limitations Standardized Measure [facility] AM-PAC 6 clicks Basic Mobility Inpatient Short Form: Raw Score:23 CMS Score: 11.20% Informed Consent/Education: Patient was instructed in purpose of PT consult. Agreeable to PT plan of care to progress mobility level and R LE strength. Assessment: Tolerated today's session despite high pain level which Nurse Migue was updated about. Onset of mild lightheadedness and worsening pain level limited distance covered for this session. Patient presents with clinical signs and symptoms consistent with current/admitting diagnoses that have resulted to mobility limitations, gait instability, generalized weakness, and impairment of motor control as demonstrated by the following impairment level findings: 1. Decreased strength to R knee major muscle groups 2. Impaired standing balance 3. Limitation of joint range of motion in R knee Impairments are contributing to the following functional limitations: 1. Inability to safely ambulate without assistive device 2. Increase completion time for mobility ADL performance 3. Increased fall risk Patient is assessed as a 44698 moderate complexity based on the following: History: 73-year-old female with impairment level findings, functional limitations, and past medical history as indicated above Examination: Demonstrable impairment in strength, balance, and mobility level with underlying impairments and functional limitations as documented above Presentation: stable Decision Makin moderate complexity Goals X1 week 1. Supine-Sit independent 2. Sit-Supine independent 3. Sit-Stand independent 4. Stand-Sit independent 5. Bed-Chair independent 6. Chair-Bed independent 7. Independent gait on level surface with use of least restrictive device for at least 300 feet without report of pain nor dyspnea 8. Independent stair negotiation while holding onto bilateral rails for at least 10 steps without report of pain nor dyspnea 9. Independent with home exercise program 10. Good static and dynamic standing balance/tolerance TREATMENT PLAN/PLAN OF CARE: --Patient will highly benefit from skilled physical therapy services including functional mobility training, bed mobility/transfer training, gait and balance training, therapeutic exercises, therapeutic activity, caregiver/staff/family education and training 1-2x/day, 7 days/week x 1 week. Plan of care has been reviewed with the ENGLISH COMPOSITION TEACHER providing the service under Physical Therapy direction. Initiate Physical Therapy intervention for strengthening, bed mobility, transfers, gait, stairs, balance training, use of assistive device. --PRE-MEDICATE FOR PAIN FOR PT SESSIONS. DISCHARGE RECOMMENDATIONS: HH PT vs OP PT based on overall progress towards goals TREATMENT CODE/TIME: 24799 x 20 minutes for 1 unit, 74319 x 42 minutes for 3 units (16:05-17:07). Thank you for the opportunity to participate in the care of this patient. Kaylin Fleming PT, DPT, CLT [facility] [place], [place]
--- NOTE | 2024-04-06 16:40 | W.ANESPOSTOP ---
Postoperative Evaluation Date, Time and Location Date Performed: 04/06/24 Time Performed: 16:40 Patient Location: Med/Surg Vital Signs Most Recent Imported Vital Signs: Most Recent Vital Signs Temp Pulse Resp BP Pulse Ox 36.6 C 87 18 149/84 H 97 04/06/24 14:47 04/06/24 14:47 04/06/24 14:47 04/06/24 14:47 04/06/24 14:47 Pain Score Most Recent Pain Score: Most Recent Pain Score Pain Level [Right Knee] 8 04/06/24 14:55 Pain Level 8 04/06/24 16:04 Assessment Mental Status: Awake (Alert & Oriented to Patient Baseline) Airway and Respiratory Function: Patent airway with normal (patient baseline) respiratory exam Cardiovascular Function: Hemodynamically Stable Hydration Status: Adequately Hydrated Nausea & Vomiting: No Nausea or Vomiting Pain: Pain is tolerable per patient Peripheral Nerve Block: Regional nerve block not resolved at time of post operative discharge
[2024-04-06] MEDS: oxyCODONE 5 MG TAB PO (18:10)
[2024-04-06] MEDS: Budesonide/Formoterol 160/4.5 6 GM 60 PUFF INH IH (20:17)
[2024-04-06] MEDS: Aspirin E.C. 81 MG TABEC PO (21:28)
[2024-04-06] MEDS: Docusate Sodium 100 MG CAP 200 MG PO (21:28)
[2024-04-06] MEDS: ceFAZolin 1 GM/50 ML BAG IVPB (21:29)
--- NOTE | 2024-04-07 | DI.RAD_ITS ---
Exam(s) XR KNEE RT 2V AP,LAT EXAM: XR KNEE RT 2V AP,LAT CLINICAL HISTORY: eval R knee pain s/p TKA. TECHNIQUE: 2D digital imaging was performed. COMPARISON: CR XR KNEE LT 1V from 12/14/2023 CR XR KNEE COMPLETE MIN 4V LT from 12/23/2023 FINDINGS: 2 portable views Satisfactory position alignment of the components of the newly placed prosthesis. No fracture or loo sening evident. Postop gas seen in the soft tissues. IMPRESSION: Satisfactory postop appearance DATA REPOSITORY: RADIATION DOSE DELIVERED:
[2024-04-07] MEDS: ceFAZolin 1 GM/50 ML BAG IVPB (03:24)
[2024-04-07] MEDS: oxyCODONE 5 MG TAB PO ×4 (03:32→20:55)
[2024-04-07] MEDS: Normal Saline Flush 10 ML SYR IV ×5 (04:26→20:53)
[2024-04-07 07:43] VITALS: BP 146/78; PULSE 74; RESP 15; TEMP 36.9; O2SAT 94
[2024-04-07] MEDS: Acetaminophen 500 MG TAB 1000 MG PO ×3 (08:04→20:54)
[2024-04-07] MEDS: DULoxetine 30 MG CAP PO (08:05)
[2024-04-07] MEDS: Omeprazole 20 MG CAPCR PO (08:05)
[2024-04-07] MEDS: Aspirin E.C. 81 MG TABEC PO ×2 (08:06→20:54)
[2024-04-07] MEDS: Ascorbic Acid 500 MG TAB PO (08:06)
[2024-04-07] MEDS: Ketorolac 15 MG/ML VIAL IVP ×3 (08:07→20:59)
[2024-04-07] MEDS: Dexamethasone 4 MG TAB PO (08:09)
--- NOTE | 2024-04-07 08:43 | PT.INTREAT ---
PT Notes Visit Reasons: Right Knee Arthritis Physical Therapy Inpatient Treatment Note Date: 04/07/2024 Precautions: WBAT on R LE with AD. Subjective: Complained of pain at 10/10 but was able to move out of bed and walk a little bit more today. Complained about worse pain in R knee and front and outer side of R thigh with exercises performance and movement. Said that after standing up from the low toilet seat earlier this morning added to her pain level. Denied headache, chest pain, and lightheadedness throughout session. Does not feel safe going home alone today. Objective: General Observation: Just got done breakfast when PT came in. IV access in the R UE. Mental Status: Anxious about walking and moving for this session; feels that her R quad is not fully awake Pain: As above Sensation: Intact as to pain and light pressure in B LE Bed Mobility/Transfers: Minimal cueing provided for use of B hands as needed for support, movement sequence, AD management, and posture to reduce fall risk and minimize pain report Supine to sit stand by assist Sit to stand stand by assist with FWW Stand to sit stand by assist with FWW Gait: Facilitated safe and correct performance of level surface ambulation for 80 feet in the hallway with wheelchair follow and intermittent contact guard assist of PT as she minimally fumbled with trying to full extend R knee at midstance, this happened twice but there was no LOB. Step-to gait pattern. Pain shot up to 10/10 at end of the first half and patient requested to turn around to walk back to the room. This time was about half an hour after she got her pain medications. Dalton that having higher walker height makes her back hurt less. Nurse Temi liu. Stairs: Patient politely requested to doing the stairs later today as she got more anxious. THERA EX: Trained patient with correct performance of exercises below to maximize motor control, joint flexibility, soft tissue extensibility of the [] knee musculature: Access Code: [email or web address] URL: [email or web address] Date: 04/07/2024 Prepared by: Kaylin Fleming Exercises - Supine Quad Set - 1 x daily - 7 x weekly - 1 sets - 10 reps - 5 hold-- Minimal quad activation due to pain - Supine Heel Slide - 1 x daily - 7 x weekly - 1 sets - 10 reps - 5 hold - Supine Ankle Pumps - 1 x daily - 7 x weekly - 1 sets - 10 reps - 5 hold - Small Range Straight Leg Raise - 1 x daily - 7 x weekly - 1 sets - 10 reps - 5 hold--Unable to perform SLR - Seated April - 1 x daily - 7 x weekly - 1 sets - 10 reps - 5 hold Balance: Static Sitting: Normal Dynamic Sitting: Good Static Standing: Fair Dynamic Standing: Fair Assessment: Arthrogenic muscle inhibition due to post op status resulting to inadequate R quadriceps activation is contributing to instability of gait. Anticipation of pain compounds the issue. Will work on gradual R quad recruitment to maximize strength while working with nursing on pain medication to facilitate mobility progression. Continue with acute rehab of R knee as tolerated per orthopedic protocol. Patient presents with clinical signs and symptoms consistent with current/admitting diagnoses that have resulted to mobility limitations, gait instability, generalized weakness, and impairment of motor control as demonstrated by the following impairment level findings: 1. Decreased strength to R knee major muscle groups 2. Impaired standing balance 3. Limitation of joint range of motion in R knee Impairments are contributing to the following functional limitations: 1. Inability to safely ambulate without assistive device 2. Increase completion time for mobility ADL performance 3. Increased fall risk TREATMENT PLAN/PLAN OF CARE: --Continue with acute rehab of R knee as tolerated per orthopedic TKA protocol. --PRE-MEDICATE FOR PAIN FOR PT SESSIONS. DISCHARGE RECOMMENDATIONS: HH PT vs OP PT based on overall progress towards goals TREATMENT CODE/TIME: 94875 x 25 minutes for 2 units, 70556 x 19 minutes for 1 unit (08:43-09:27).
[2024-04-07] MEDS: Budesonide/Formoterol 160/4.5 6 GM 60 PUFF INH IH ×2 (08:48→20:11)
--- NOTE | 2024-04-07 10:01 | PDOC.CMIN ---
Date of service: 04/07/24 Time of Service: 10:01 Care Management Initial Assmt Initial Assessment Reason for Hospitalization: Right Knee Osteoarthritis Functional Status/Living Situation Patient Presentation: Miroslava was awake and lying in bed when CM met with her. She is s/p right knee replacement and her discharge is delayed due to pain and difficulty with ambulation. She worked with PT this afternoon and didn't find that taking pain medication before hand was helpful because it made her tired. Miroslava is agreeable to PT, after discharge. In time, when she is able to graduate to outpatient PT she would like to go to whoever Dr. Story recommends and doesn't mind traveline. Town of Residence: [place] Resides with: Alone Significant Other/Family: Local (Sons live nearby) Employment Status: Retired ([employer]) Instrumental Activities of Daily Living (ADLs): Independent Physical Functioning/Mobility Assistive Device: Has a walker and cane Advance Directives Advance Directives: Do you have an Advance Directive: N 07/16/23 10:12 AD On File at [facility]: N 07/16/23 10:12 Date Asked 04/06/24 04/01/24 08:42 AD Date Reviewed COLST On File at [facility] COLST Date Scanned Code Status Resuscitation Status Full Code Insurance Coverage/Financial Issues Insurance: [employer] Senior Supplemental Ins Medicare Part A & B Financial Issues: None identified Care Team Visit Care Team Role Provider Type Lidia Clay Primary Care Provider NON-[facility] STAFF PHYSICIAN InPatient [facility] Other Providers OTHER Shai Story MD Admit Provider [facility] STAFF PHYSICIAN Attending Provider Discharge Potential Discharge Needs: Other (Ortho) Anticipated Barriers to Discharge: None Identified Patient/Family Education Needs: Review discharge instructions, discuss Ask Me Three Transportation: Private vehicle Plan: Anticipate, Miroslava will discharge home with [facility] PT and a plan to follow up with Dr. Story. Family will provide transportation. CM will follow. PFSH All Active Problems (Updated 04/07/24 @ 10:33 by Shai Story MD) Quadriceps weakness (Acute) History of total right knee replacement (Acute 04/06/24) Iliotibial band syndrome affecting right lower leg (Acute) DEPO MEDROL 01/07/24 Trochanteric bursitis, left hip (Acute) Muscle weakness of lower extremity (Acute) History of total left knee replacement (Acute 12/01/23) Asthma (Chronic) Aortic valve disorder (Acute) Abnormal CXR (Acute) Frostbite (Acute) Low vitamin B12 level (Acute) Neuropathy (Acute) Tinea pedis (Acute) Fatigue (Acute) Muscle cramping (Acute) Retention of urine (Acute) Allergic rhinitis due to pollen (Acute) Chest pain (Acute) Cough (Acute) Allergic asthma (Acute) Nephrolithiasis (Chronic) Environmental allergies (Acute) Medical History (Updated 04/07/24 @ 10:33 by Shai Story MD) Osteoarthritis ADHD Pt. denies Hypomagnesemia Heart murmur Anemia Liver nodule Onychomycosis Vertigo Resting tremor Left pointer finger Arthralgia Prediabetes HTN (hypertension) HLD (hyperlipidemia) Hot flashes SOB (shortness of breath) Dysuria Urinary frequency Dysfunctional voiding of urine Cholelithiasis pt. denies Disc degeneration Surgical History (Updated 04/06/24 @ 14:22 by Eugenio Sweet RN) Hx of hysterectomy Hx of cholecystectomy H/O detached retina repair History of arthrodesis metacarpophalangeal joint, with or without internal fixation History of ureteroscopy History of appendectomy History of lobectomy of thyroid Social History Smoking/Tobacco Use Status: Former Tobacco Use Quit Date: 02/23/79 Smoking risk assessment performed?: Yes Alcohol Intake: never Drug use: Never Substance use type: does not use Housing: house Do you feel safe at home: Yes Additional Social history: lives alone
--- NOTE | 2024-04-07 10:15 | W.PM.PROGNOT ---
Date of Service Date of service: 04/07/24 Time of Service: 09:35 Assessment and Plan Assessment and plan (1) History of total right knee replacement: Status: Acute Assessment and plan: Miroslava is s/p right knee replacement. Just like the left side she is having significant pain and pain avoidance behaviors. I did start her on Duloxetine to hopefully assist with her pain management. We also will utilize the standard multi-modal pain protocol. She is very anxious about her pain and doesn't have much insight into it although I was very honest with Miroslava that this is simlar to the left side and is william eof her interpretation of pain and anxiety around that. She needs to continue to work on massage, quad activation and transferring. She needs to continue to embrace the pain and push through. I will check an x-ray. Continue with PT and WBAT. Unable to discharge to home due to significant quadriceps weakness and pain limiting ambulation. (2) Quadriceps weakness: Status: Acute Assessment and plan: Quadriceps apprehension. This is likely pain avoidance. No significnat concern but will check an x-ray. Subjective Subjective Interval history since last seen: Miroslava reports significant pain about the right knee. She was able to walk with PT but with instability and distrust of the right knee. She has been taking pain medications and I started her on Duloxetine yesterday to address her heightened pain response. Exam Narrative Exam Narrative: Sitting up in the chair. RLE with some mild swelling and ecchymosis anteriorly. Gentle passive ROM does not cause any pain. She is reluctant to show any quad activation. With some encouragement she is able to activate the quadriceps and show some patella movement but reports pain in doing so and is unable to demonstrate a knee extension. She reports pain up into the thigh anteriorly, proximal third. No instability. SILT DP/SP/Tib. Objective Last Vital Signs Temp 36.9 C 04/07/24 07:43 Pulse 74 04/07/24 07:43 Resp 15 04/07/24 07:43 BP 146/78 H 04/07/24 07:43 Pulse Ox 94 04/07/24 07:43 Time Spent with Patient Time Spent with Patient: 25-34 minutes Time was spent: preparing to see the patient(eg.review tests), obtaining and/or reviewing separately [facility], ordering medications,tests, procedures, referring, communicating with other health director long term care, indepentently interpreting results and counseling the patient
[2024-04-07 11:11] VITALS: BP 124/55; PULSE 85; RESP 16; TEMP 36.9; O2SAT 95
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
--- NOTE | 2024-04-07 14:27 | PTTR_ITS ---
PT Notes Visit Reasons: Right Knee Arthritis Physical Therapy Inpatient Treatment Note Date: 04/07/2024 pm session Precautions: WBAT on R LE with AD. Subjective: Objective: General Observation: semireclined in bed performing HEP, IV access in the R UE. Mental Status: Anxious expressing feelings of failure that she can't get her quad to work. Pain: pt rates pain as 3/10 with intermittent verbal outbursts when it gets to max of 5 with pain posterior knee along hamstring insertions Bed Mobility/Transfers: Minimal cueing provided for use of B hands as needed for support, movement sequence, AD management, and posture to reduce fall risk and minimize pain report Supine to sit stand by assist sit to supine with use of BUE to get RLE onto bed. various surfaces including chair, bed and low toilet: Sit to stand stand by assist with FWW Stand to sit stand by assist with FWW Gait: Facilitated safe and correct performance of level surface ambulation for 30 feet x 2 in room with SBA and cue for right heelstrike and hold quad with each step. Step-to gait pattern. She reported no increase in pain with ambulation . Stairs: assess next session THERA EX:/ Neuro reeducation Trained patient with correct performance of exercises below to maximize motor control, joint flexibility, soft tissue extensibility of the right knee musculature: to promote kinesthetic muscle activation Access Code: [email or web address] URL: [email or web address] Date: 04/07/2024 Prepared by: Kaylin Fleming Exercises pt perform 4 sets of 3 reps with rest between each set for optimal activation - Supine Quad Set - 1 x daily - 7 x weekly - 1 sets - 10 reps - 5 hold-- performed BLE at same time with towel roll under right knee for overflow - Supine Heel Slide - 1 x daily - 7 x weekly - 1 sets - 10 reps - 5 hold to >95 degrees - Supine Ankle Pumps - 1 x daily - 7 x weekly - 1 sets - 10 reps - 5 hold - Small Range Straight Leg Raise - 1 x daily - 7 x weekly - 1 sets - 10 reps - 5 hold--Unable to perform SLR - Seated April - 1 x daily - 7 x weekly - 1 sets - 10 reps - 5 hold Added: - supine SAQ performed B LE at same time for overflow with (+) activation of quad Standing at wall TKE with pillow behind knee 2 sets 10 reps prior to ambulation. Assessment: Pt able to activate right quad without compensation however continues with lag during open kinetic chain tasks. Pt progressed through SAQ , to quad set with towel roll then quad set without roll . She responded well to performing AROM with BLE simultaneously for neuromuscular reeducation/ overflow from left to right LE. Pt very anxious and expressed frequently that she was failing because she is not able to fully lift her leg. Reassurance provided. By end of session pt able to activate and hold right knee extension in midstance for 30 feet without knee instability. pt required cues for heelstrike with each step. Pt educated to NOT place anything under her knee except a towel roll when performing quad set exercise.otherwise her leg should be out straight on the bedor pillow under heelto promote knee extension and hamstring lengthening. TREATMENT PLAN/PLAN OF CARE: --Continue with acute rehab of R knee as tolerated per orthopedic TKA protocol. --PRE-MEDICATE FOR PAIN FOR PT SESSIONS. DISCHARGE RECOMMENDATIONS: HH PT vs OP PT based on overall progress towards goals TREATMENT CODE/TIME: 28907 x 20 mins for 1 unit / 95646 x 40 mins for 3 units
[2024-04-07 14:34] VITALS: BP 133/67; PULSE 103; RESP 15; TEMP 39.1; O2SAT 94
[2024-04-07] MEDS: Polyethylene Glycol 3350 17 GM PACKET PO (14:53)
[2024-04-07] MEDS: Docusate Sodium 100 MG CAP 200 MG PO ×2 (14:53→20:54)
[2024-04-07 16:52] VITALS: PULSE 92; TEMP 36.8
[2024-04-07 19:41] VITALS: BP 111/63; PULSE 89; RESP 15; TEMP 36.8; O2SAT 92
[2024-04-07] MEDS: Gabapentin 300 MG CAP PO (20:54)
[2024-04-07 22:35] VITALS: BP 127/68; PULSE 86; RESP 16; TEMP 36.4; O2SAT 92
[2024-04-08 02:42] VITALS: BP 127/69; PULSE 83; RESP 19; TEMP 36.5; O2SAT 94
[2024-04-08] MEDS: Budesonide/Formoterol 160/4.5 6 GM 60 PUFF INH IH (07:28)
[2024-04-08 07:47] VITALS: BP 127/69; PULSE 86; RESP 15; TEMP 36.8; O2SAT 98
[2024-04-08] MEDS: Docusate Sodium 100 MG CAP 200 MG PO (08:10)
[2024-04-08] MEDS: DULoxetine 30 MG CAP PO (08:11)
[2024-04-08] MEDS: Acetaminophen 500 MG TAB 1000 MG PO ×2 (08:11→14:20)
[2024-04-08] MEDS: Ketorolac 15 MG/ML VIAL IVP (08:11)
[2024-04-08] MEDS: Dexamethasone 4 MG TAB PO (08:12)
[2024-04-08] MEDS: Ascorbic Acid 500 MG TAB PO (08:12)
[2024-04-08] MEDS: Omeprazole 20 MG CAPCR PO (08:12)
[2024-04-08] MEDS: Normal Saline Flush 10 ML SYR IV (08:13)
[2024-04-08] MEDS: Polyethylene Glycol 3350 17 GM PACKET PO (08:13)
[2024-04-08] MEDS: Aspirin E.C. 81 MG TABEC PO (08:13)
--- NOTE | 2024-04-08 08:44 | PDOC.CMPRO ---
Date of service: 04/08/24 Time of Service: 08:44 Care Management Progress Note Discharge Potential Discharge Needs: Other (Ortho) Anticipated Barriers to Discharge: None Identified Patient/Family Education Needs: Review discharge instructions, discuss Ask Me Three Transportation: Private vehicle Plan: Anticipate, Miroslava will discharge home with [facility] PT and a plan to follow up with Dr. Story. Family will provide transportation. CM will follow.
--- NOTE | 2024-04-08 09:28 | DSE_ITS ---
Date of service: 04/08/24 Time of Service: 14:01 DS: Diagnosis Discharge Diagnosis (1) History of total right knee replacement: Status: Acute (2) Quadriceps weakness: Status: Acute Discharge Plan Disposition Patient Disposition: Home W/Home Health Services Condition: Good Discharge Details Reason For Visit: Right Knee Arthritis Admit Date/Time: 04/06/24 09:41 Admit Provider: Shai Sotry Attending Provider: Shai Story Primary Care Provider: Lidia lCay Hospital Course Hospital Course: Miroslava was admitted to the medical/surgical floor following the procedure. The surgery was tolerated well without any notable medical, surgical, or anesthetic complications. Mobilization began postoperatively. She was voiding spontaneously. She did have significant pain afterwards as well as notable quadriceps apprehension. Vitals remained stable. Physical therapy worked with the patient intensively with an improvement in quadriceps function and ambulatory capacity and was thus cleared for discharge home. No acute medical issues. Pain was controlled on oral regimen. Home Meds and New Rx's Prescriptions: New aspirin 81 mg tablet,delayed release (DR/EC) 81 mg PO BID Qty: 60 0RF acetaminophen 500 mg tablet 1,000 mg PO Q8H PRN (Reason: pain) Qty: 90 3RF docusate sodium [Colace] 100 mg capsule 100 mg PO BID PRNQty: 10 0RF gabapentin 300 mg capsule 300 mg PO QHS Qty: 14 0RF omeprazole 20 mg capsule,delayed release(DR/EC) 20 mg PO DAILY Qty: 30 0RF oxycodone 10 mg tablet 10 mg PO Q4H PRNQty: 30 0RF duloxetine 30 mg capsule,delayed release(DR/EC) 30 mg PO DAILY Qty: 14 0RF Continued polysaccharide iron complex 150 mg iron capsule 150 mg PO .4 a day iodine 150 mcg tablet 150 mcg PO DAILY albuterol sulfate 90 mcg/actuation HFA aerosol inhaler 2 puff inhalation 4XD PRN (Reason: shortness of breath or wheezing) Qty: 8.5 12RF Centrum Adult 50 Plus 80 mcg tablet,chewable 1 tab PO DAILY ondansetron HCl 4 mg tablet 4 mg PO Q8H PRN budesonide 0.5 mg/2 mL suspension for nebulization 0.5 mg inhalation BID PRN (Reason: Dyspnea, wheezing, illness) Qty: 360 7RF Dupixent Pen 300 mg/2 mL pen injector 300 mg subcut Q2W Qty: 12 4RF fluticasone propion-salmeterol [Advair HFA] 230-21 mcg/actuation HFA aerosol inhaler 2 puff inhalation BID Qty: 12 12RF albuterol sulfate 2.5 mg /3 mL (0.083 %) solution for nebulization 2.5 mg inhalation QID PRN (Reason: shortness of breath or wheezing) Qty: 180 12RF azithromycin 250 mg tablet See Rx Instructions PO .COMPLEX Qty: 6 0RF Rx Instructions: For 250 mg dose pack: take 500 mg today (day 1), then 250 mg for 4 days (days 2-5) PO echinacea 400 mg capsule 400 mg PO DAILY Patient Comments: unsure of dose Rx Instructions: administer with meals zinc 50 mg capsule 50 mg PO DAILY Patient Comments: unsure of dose ascorbic acid (vitamin C) [C-500] 500 mg tablet 500 mg PO DAILY Patient Comments: pt states dose is 1000mg Changed indomethacin 50 mg capsule 50 mg PO TID PRNQty: 90 0RF Rx Instructions: administer with food or milk Discharge Instructions Additional Instructions: Total Knee Discharge Instructions Activity: The most important activity is to walk and to work on gentle motion (both flexion and extension). You should try to take short walks a few times a day. It is important that when resting you work on keeping the knee straight. Avoid putting a pillow behind the knee as this will encourage flexion. Work on range of motion exercises as provided by Physical Therapy. - Start outpatient physical therapy within 2 weeks. - You should wear the MICHELLE hose on both legs for 2 weeks. You may remove these at night. You may also use any compression sock in place of the MICHELLE hose. - Utilize [employer] to review exercises, see videos on exercises and obtain basic information pertaining to your surgery and your recovery. Dressing: Remove the Caleb wrap by 2 days after your surgery and put on the MICHELLE stocking given to you from the hospital. Keep the surgical dressing (underneath the CALEB wrap) in place for at least one week. After the first week it may be removed and replaced with light gauze and tape or nothing. The wound and dressing may get wet after 3 days but avoid soaking the dressing or otherwise it will need to be changed. Many people prefer covering the dressing with cling wrap (saran wrap) to minimize it from getting soaked. If it gets wet, just pat dry. If it starts to peel off then it will need to be changed. Medications: - You should take Tylenol and anti-inflammatory Indomethacin as your primary pain control medications. - You have been prescribed a stronger pain medication Oxycodone for breakthrough pain, take as needed as prescribed. - You have also been prescribed a stomach acid reduction agent Omeprazole to help reduce stomach acid and reflux. - You have been prescribed Gabapentin to take at night for restlessness and nerve pain. - You will be taking Aspirin 81mg twice a day for DVT prevention unless instructed otherwise. - You have also been prescribed Duloxetine, which will hopefully decrease pain and your response to pain in the first 2 weeks. - If you have constipation you should take Colace or Miralax (both [id number]). It takes most people 3-4 days to have a bowel movement. Follow-up: 2 weeks If you have any acute concerns or questions, please do not hesitate to contact the office at [phone]. You may contact Dr. Story with any questions after hours through the hospital at [phone] or on his cell phone at [phone]. -- 1. Encounter Date and Reason I certify that Miroslava Aggarwal was seen by Shai Story MD on 04/08/24 and that I had a [id number] encounter with this patient that meets the physician face to face encounter requirements. 2. Clinical Findings Supporting Skilled Need and Homebound Status I certify that home health services are medically necessary, include either intermittent prison and/or physical/speech therapy, and that this patient is homebound in that absences from the home require considerable and taxing effort and are infrequent or of short duration, or are attributable to the need to receive medical care. [X] (a) Attached documentation from encounter provides clinical findings supporting skilled need and homebound status (including what assistance patient requires to leave the home). The encounter with the patient was in whole, or in part, for the following medical condition, which is the primary reason for home health care: Right Knee Arthritis [facility]: Physical Therapy: Miroslava would benefit from home health physical therapy to address her ambulatory deficits and weakness following knee replacement surgery. She is weight-bearing as tolerated with assistive devices. She did have significant quadriceps apprehension and thus initial therapy should focus on ambulatory independence but also aggressive quadriceps activation. Speech Therapy: Homebound: Miroslava is unable to leave her home unassisted due to her significant gait dysfunction and weakness. 3. Certification and Authentication I certify that I composed the above information based on my clinical judgement relating to this patient's medical condition and, if applicable, clinical findings communicated to me by the NPP or inpatient physician who performed the Home Health Referral. All further orders will be obtained through Dr. Story Stand Alone Forms: Nursing Discharge Form Referrals: Shai Story MD [ [facility] STAFF PHYSICIAN] - (I Left a message with the office, they should call for an appointment. ) Activity:: Activity as Tolerated Equipment/Supplies:: Walker Diet:: As Tolerated Discharge Orders Discharge Orders: Discharge Order (Routine); Ordered 04/08/24 Ordered By: Nallely Ibarra Discharge Data Discharge Date/Time-TO BE ENTERED AT DEPARTURE: 04/08/24 15:10 DS: Summary Time Spent with Patient providing and/or coordinating discharge services: Less than 30 minutes Status at Discharge Functional status at discharge: uses cane/walker Overall status at discharge: patient is progressing back to baseline Mental Status: mental status grossly normal Speech and Movement: speech and movement normal Mood: congruent mood Affect: normal affect Quality:SDOH Health Related Social Needs: No Data to Display Exam Narrative Exam Narrative: Patient was moving from bathroom back to bed with walker. RLE with edema and ecchymosis anteriorly. Gentle passive ROM does not cause any pain. SILT DP/SP/Tib. She is able to demonstrate active toe extension and flexion. Patient although hesitant is able to demonstrate quad activation. Passively can assist patient to be ~20 degrees short of full extension and flexion just shy of 90 degrees. Const General: cooperative, comfortable and no acute distress Resp Effort & Inspection: normal respiratory effort and able to speak in complete sentences Psych Mental Status: mental status grossly normal Speech and Movement: speech and movement normal Mood: congruent mood Affect: normal affect DS: Data Vitals/I&O Vitals and I&O: Vital Signs Temperature 36.8 C 04/08/24 07:47 Temperature Source Temporal Artery Scan 04/08/24 07:47 Pulse 86 04/08/24 07:47 Pulse Rhythm Regular 04/06/24 08:39 Pulse 76 04/06/24 13:41 Respiratory Rate 15 04/08/24 07:47 Respiratory Depth Normal 04/06/24 09:25 Blood Pressure 127/69 04/08/24 07:47 Blood Pressure Mean 96 04/06/24 13:40 Blood Pressure Position Sitting 04/06/24 10:27 Pulse Oximetry 98 04/08/24 07:47 Respiratory End-tidal CO2 34 04/06/24 14:00 Oxygen Delivery Method Room Air 04/08/24 07:47 Oxygen Flow Rate 0 04/08/24 07:47 Pain Level 7 04/08/24 08:11 Comment pT c/o soreness in knee when ambulating. 04/08/24 07:47 Intake & Output 04/07/24 04/07/24 04/08/24 11:59 23:59 11:59 Intake Total 1000 / 1010 10 / 1010 Output Total 100 / 100 Balance 1000 / 910 -90 / 910 Intake: IV 1000 / 1010 10 / 1010 Output: Urine 100 / 100 Other: Urine Color Yellow Pale Urine Appearance Clear Clear Urine Odor Normal Comment pT reports she has voided multiple times today. pT emptied own commode but reports she voided independently. PFSH All Active Problems (Updated 04/09/24 @ 00:01 by LIZ HINKLE) Quadriceps weakness (Acute) History of total right knee replacement (Acute 04/06/24) Iliotibial band syndrome affecting right lower leg (Acute) DEPO MEDROL 01/07/24 Trochanteric bursitis, left hip (Acute) Muscle weakness of lower extremity (Acute) History of total left knee replacement (Acute 12/01/23) Asthma (Chronic) Aortic valve disorder (Acute) Abnormal CXR (Acute) Frostbite (Acute) Low vitamin B12 level (Acute) Neuropathy (Acute) Tinea pedis (Acute) Fatigue (Acute) Muscle cramping (Acute) Retention of urine (Acute) Allergic rhinitis due to pollen (Acute) Chest pain (Acute) Cough (Acute) Allergic asthma (Acute) Nephrolithiasis (Chronic) Environmental allergies (Acute) Medical History (Updated 04/09/24 @ 00:01 by LIZ HINKLE) Osteoarthritis ADHD Pt. denies Hypomagnesemia Heart murmur Anemia Liver nodule Onychomycosis Vertigo Resting tremor Left pointer finger Arthralgia Prediabetes HTN (hypertension) HLD (hyperlipidemia) Hot flashes SOB (shortness of breath) Dysuria Urinary frequency Dysfunctional voiding of urine Cholelithiasis pt. denies Disc degeneration Surgical History (Updated 04/09/24 @ 00:01 by LIZ HINKLE) Hx of hysterectomy Hx of cholecystectomy H/O detached retina repair History of arthrodesis metacarpophalangeal joint, with or without internal fixation History of ureteroscopy History of appendectomy History of lobectomy of thyroid Social History Smoking/Tobacco Use Status: Former Tobacco Use Quit Date: 02/23/79 Smoking risk assessment performed?: Yes Alcohol Intake: never Drug use: Never Substance use type: does not use Housing: house Do you feel safe at home: Yes Additional Social history: lives alone Time Spent with Patient Time Spent with Patient: 45-69 minutes Time was spent: obtaining and/or reviewing separately otained hiistory, ordering medications,tests, procedures, counseling the patient and care coordination
--- NOTE | 2024-04-08 10:11 | PTTR_ITS ---
PT Notes Visit Reasons: Right Knee Arthritis Physical Therapy Inpatient Treatment Note Date: 04/08/2024 am session Precautions: WBAT on R LE with AD. Subjective: Pt reports she is feeling much better and has been able to move her knee more. She also noted she has not had a bowel movement yet. Objective: General Observation: semireclined in bed with pillow under knee and cryocuff in place, IV access in the R UE. Mental Status:Alert less anxious, able to attend to task and cooperative. Pt excited to show this PT what she can now do with her knee. Pain: pt rates pain as 3/10 with no outburst of pain this session Bed Mobility/Transfers: Minimal cueing provided for activation of quad and use of B hands as needed for support, movement sequence, AD management, and posture to reduce fall risk and minimize pain report Supine to sit independent sit to supine independent with use of BUE to get RLE onto bed. various surfaces including chair, bed and low toilet: Sit to stand independent with FWW Stand to sit independent with FWW Gait: Facilitated safe and correct performance of level surface ambulation for 200 feet x 2 independent demonstrating heelstrike and ablity hold knee extension at mid stance. reciprocal gait pattern. She reported no increase in pain with ambulation . Stairs: 2 steps with rails x 2 supervision THERA EX:/ Neuro reeducation Trained patient with correct performance of exercises below to maximize motor control, joint flexibility, soft tissue extensibility of the right knee musculature: to promote kinesthetic muscle activation Access Code: [email or web address] URL: [email or web address] Date: 04/07/2024 Prepared by: Kaylin Fleming Exercises pt perform 4 sets of 3 reps with rest between each set for optimal activation - Supine Quad Set - 1 x daily - 7 x weekly - 1 sets - 10 reps - 5 hold-- performed BLE at same time with towel roll under right knee for overflow - Supine Heel Slide - 1 x daily - 7 x weekly - 1 sets - 10 reps - 5 hold to >95 degrees - Supine Ankle Pumps - 1 x daily - 7 x weekly - 1 sets - 10 reps - 5 hold - Small Range Straight Leg Raise - 1 x daily - 7 x weekly - 1 sets - 10 reps - 5 hold--small range with cue to perfrom QS then SLR able to hold without lag 2 /5 reps - Seated April - 1 x daily - 7 x weekly - 1 sets - 10 reps - 5 hold Added: - supine SAQ performed B LE at same time for overflow with (+) activation of quad 10 reps Standing at wall TKE with pillow behind knee 2 sets 10 reps prior to ambulation. - LAQ seated x 2 sets 5 reps Assessment: Pt demonstrates quad set with towel roll and LAQ for full ROM. She demonstrates Heelslide to 98 degrees in supine. She is independent with all transfers and ambulation with FWW. Pt demonstrates heelstike and able to activate quad in closed chain through mid stance without buckling. Pt able to perform stairs with rail to safely enter exit her 1 step at home. She woulde benefit from Home PT to continue with progression of HEP and quad activation and knee ROM to reduce risk of contracture. Pt requires reinforcement for positioning without pillow under knee to promote knee extension. Status discussed with Dr Story. TREATMENT PLAN/PLAN OF CARE: --Continue with acute rehab of R knee as tolerated per orthopedic TKA protocol. --PRE-MEDICATE FOR PAIN FOR PT SESSIONS. DISCHARGE RECOMMENDATIONS: HH PT then transition to OP PT based on overall progress towards goals TREATMENT CODE/TIME: 52105 , 14182 / [id number]
--- NOTE | 2024-04-08 13:56 | PT.INTREAT ---
PT Notes Visit Reasons: Right Knee Arthritis Date: 04/08/2024 PRECAUTIONS: WBAT on R LE with AD. SUBJECTIVE: Pt reports her pain has been well managed, able to go back and forth the toilet without issues. looking forward to going home this afternoon. OBJECTIVE: ? PAIN: 04/04 VITALS: monitored by nursing Therapeutic Activities 68743: Direct one-on-one instruction in dynamic activities to improve functional performance. ?? BED MOBILITY/TRANSFERS? Rolling L/R: independent Supine-sit: ? independent? Sit-supine: ? ?independent ? Sit-stand: ? ?independent? Stand-sit: ?? ? independent? Bed-Chair:? ? ? independent? Chair-bed: independent? Provided skilled cues and instruction on performance and technique throughout. Gait Training 72647: Direct one-on-one instruction and skilled instruction in: Employing an assistive device Modified weight-bearing status Movement sequencing Turning and movement with proper form Provided verbal cues for equipment management and technique Provided instruction in gait pattern Patient education regarding pacing and breathing techniques to maximize activity tolerance? GAIT? Assistive Device: ?? FWW? Weight bearing: WBAT Assist: ? independent? Distance:?? ?300' ? Deviation: ? ?slightly antalgic ? STAIRS:? ? Step to step pattern bilateral handrail, independent? Therapeutic Exercises 40793: Direct one-on-one instruction in therapeutic exercises to develop strength, endurance, range of motion and flexibility. Exercises Access Code: [email or web address] URL: [email or web address] Date: 04/08/2024 Prepared by: Tam Fleming Exercises - Supine Quadricep Sets - 1 x daily - 7 x weekly - 1 sets - 10 reps - 5 hold - Supine Heel Slide - 1 x daily - 7 x weekly - 1 sets - 10 reps - 5 hold - Supine Ankle Pumps - 1 x daily - 7 x weekly - 1 sets - 10 reps - 5 hold - Small Range Straight Leg Raise - 1 x daily - 7 x weekly - 1 sets - 10 reps - 5 hold - Seated March - 1 x daily - 7 x weekly - 1 sets - 10 reps - 5 hold ? Provided skilled instruction in proper exercise performance Provided skilled manual cues to facilitate proper muscle recruitment and/or form: ? ASSESSMENT:?pt did not have any complaint of increased pain pt able to achieve -8 for knee extension and 100 for knee flexion PLAN: Continue with balance training, global strengthening and general conditioning for improved safety, mobility and activity tolerance until pt is ready for DC. TREATMENT CODE/TIME: 48917m2, 78368u7, 66821j2 38mins (1:10-1:48pm)
--- NOTE | 2024-04-08 14:27 | PDOC.CMDIS ---
Date of service: 04/08/24 Time of Service: 14:27 LACE Index Scoring Tool Questions: Length of Stay (in days): 1 Was the patient admitted via the E.D.?: No E.D. Visits: 0 Answers: Total Score: 1 Risk of Readmission: Low Risk Care Management Discharge Plan Reason for Hospitalization: Right Knee Replacement Discharge Plan: Discharge home with New HH PT via [facility] private vehicle. Follow up with Dr. Story and other community providers as directed. Patient/Family Education Needs: Review discharge instructions, limitations, medications and plan to follow up with community providers. Discuss ask me three. Services Needed at Discharge: Home Health Care Services (New HH PT will be provided by [facility]) and Transportation ([facility] private vehicle with a pharmacy stop on the way home. ) SDOH Health Related Social Needs: No Data to Display
== END 2024-04-08 15:10 | disposition home health service (06) ==
LOC: MS 14:17
PROVIDERS: Admitting Provider Student in an Organized Health Care Education/Training Program; PCP Physician Assistant; Responsible Provider Student in an Organized Health Care Education/Training Program; Visit Provider Student in an Organized Health Care Education/Training Program
PROC: (CPT 27447; principal; 2024-04-06 11:00)
DX: M17.11 Unilateral primary osteoarthritis, right knee (principal); M62.81 Muscle weakness (generalized); G89.18 Other acute postprocedural pain; M25.561 Pain in right knee; D64.9 Anemia, unspecified; R73.03 Prediabetes; I10 Essential (primary) hypertension; E83.42 Hypomagnesemia; E53.8 Deficiency of other specified B group vitamins; R33.9 Retention of urine, unspecified
CPT/HCPCS: 27447; 64447; 94640; 96365; 96366; 96375; 97110; 97112; 97116; 97162; 97530; 73560; 94664; C1776; G0378; J0665; J0690; J1100; J1805; J1885; J2003; J2060; J2250; J2371; J2405; J2704; J3010; J8540

== ENCOUNTER 2024-04-18 15:51 | Outpatient (CLI) | payer MEDICARE, SELFPAY ==
--- NOTE | 2024-04-18 14:00 | DI.RAD_ITS ---
Exam(s) XR STANDING ALIGNMENT XR KNEE RT 1V EXAM: XR STANDING ALIGNMENT and XR knee RT 1 V CLINICAL HISTORY: 1ST POST R TKA. TECHNIQUE: 2D digital imaging was performed. Five images were obtained. COMPARISON: CR XR KNEE LT 1V from 12/14/2023 CR XR STANDING ALIGNMENT from 12/14/2023 CR XR KNEE COMPLETE MIN 4V LT from 12/23/2023 CR XR KNEE RT 2V AP,LAT from 04/07/2024 FINDINGS: BONES: The hips are well maintained. Since the prior examination, the patient has undergone a right total knee arthroplasty. The orthopedic hardware is in good position. There is still some soft tiss ue swelling around the knee which is likely reflective of the recent surgery. No suspicious lucencie s are seen in or about the orthopedic hardware. There is a stable left total knee arthroplasty. The ankles are well maintained.There is no significant leg length discrepancy. SOFT TISSUE: Normal. IMPRESSION: Unremarkable right total knee arthroplasty. DATA REPOSITORY: RADIATION DOSE DELIVERED:
== END 2024-04-18 15:52 | disposition home or self-care (01) ==
LOC: DIORS 15:51
PROVIDERS: PCP Physician Assistant; Referring Provider Physician Assistant; Visit Provider Physician Assistant
DX: Z96.651 Presence of right artificial knee joint (principal); Z47.1 Aftercare following joint replacement surgery
CPT/HCPCS: 99024; 73560; 77073

== ENCOUNTER 2024-05-16 15:24 | Outpatient (CLI) | payer MEDICARE, SELFPAY ==
--- NOTE | 2024-05-16 09:30 | DI.RAD_ITS ---
Exam(s) XR KNEE RT 2V AP,LAT EXAM: XR KNEE RT 2V AP,LAT CLINICAL HISTORY: right TKA. TECHNIQUE: 2D digital imaging was performed. COMPARISON: CR XR KNEE RT 1V from 04/18/2024 CR XR STANDING ALIGNMENT from 04/18/2024 FINDINGS: Two views-lateral and merchant's. The prosthesis components appear unremarkable on the single lateral view with no fractures nor loosen ing evident. There has been patellar resurfacing. On the merchant's view there is slight lateral location of the patella. IMPRESSION: As above. DATA REPOSITORY: RADIATION DOSE DELIVERED:
== END 2024-05-16 15:25 | disposition home or self-care (01) ==
LOC: DIORS 15:24
PROVIDERS: PCP Physician Assistant; Referring Provider Physician Assistant; Visit Provider Student in an Organized Health Care Education/Training Program
DX: Z47.1 Aftercare following joint replacement surgery (principal); Z96.651 Presence of right artificial knee joint; M76.31 Iliotibial band syndrome, right leg; M70.51 Other bursitis of knee, right knee
CPT/HCPCS: 20610; J1010; 73560

== ENCOUNTER 2024-05-26 14:35 | Outpatient (REF) | payer MEDICARE, SELFPAY ==
[2024-05-26 19:48] LABS: Abs Immature Grans 0.04 10^3/uL (0.0-0.06); Absolute Basophil Count 0.07 10^3/uL (0.0-0.2); Absolute Eosinophil Count 0.19 10^3/uL (0.0-0.7); Absolute Lymphocyte Count 2.65 10^3/uL (1.2-3.4); Absolute Monocyte Count 0.54 10^3/uL (0.1-0.8); Absolute Neutrophil Count 5.98 10^3/uL (1.2-6.7); Basophils % 0.7 %; HCT 44.1 % (36.0-46.0); HGB 14.2 g/dL (11.2-15.7); Immature Grans % 0.4 %; MCH 28.7 pg (27.0-33.0); MCHC 32.2 % (32.0-36.0); MCV 89 fL (80-95); MPV 10.1 fL (8.0-11.0); Monocytes % 5.7 %; Neutrophils % 63.2 %; Platelet Count 306 10^3/uL (130-400); RBC 4.95 10^6/uL (3.93-5.22); RDW-SD 42.3 fL; WBC 9.47 10^3/uL (4.4-10.8)
[2024-05-26 20:23] LABS: ALT 24 U/L (14-59); AST 22 U/L (15-37); Albumin 3.8 g/dL (3.4-5.0); Alkaline Phosphatase 107 U/L (46-116); Anion Gap 11.4 mmol/L (3-11); BUN 16 mg/dL (7-18); Bilirubin, Total 0.3 mg/dL (0.2-1.0); CO2 25.6 mmol/L (21.0-32.0); CREATININE 0.9 mg/dL (0.55-1.02); Calcium 10.1 mg/dL (8.5-10.1); Chloride 108 mmol/L (98-107); Estimated GFR 68.35 (mL/min/1.73m2); Glucose 106 mg/dL (74-106); LDL CHOLESTEROL 133 mg/dL (<100); Magnesium 2.3 mg/dL (1.8-2.4); Potassium 4.1 mmol/L (3.5-5.1); Sodium 145 mmol/L (136-145); Total Protein 7.5 g/dL (6.4-8.2)
[2024-05-26 20:43] LABS: NT-proBNP 221 pg/mL (<300)
== END 2024-05-26 14:36 | disposition home or self-care (01) ==
LOC: NCHCN 14:35
PROVIDERS: PCP Physician Assistant; Visit Provider Physician Assistant
DX: R06.00 Dyspnea, unspecified (principal)
CPT/HCPCS: 80053; 83721; 83735; 83880; 85025

== ENCOUNTER → 2024-06-27 10:29 | Outpatient (BNVA) | payer MEDICARE, SELFPAY | PROVIDERS: PCP Physician Assistant; Referring Provider Physician Assistant | DX: Z47.1 Aftercare following joint replacement surgery (principal); Z96.651 Presence of right artificial knee joint | CPT/HCPCS: 99024 ==

== ENCOUNTER 2024-06-30 07:43 | Outpatient (CLI) | payer MEDICARE, SELFPAY ==
--- NOTE | 2024-06-30 07:30 | RT.EKG_ITS ---
APPROVED REPORT Exam: Resting ECG Reason for Exam: SVT Patient Location: O HR:72 bpm ECG Measurements Heart Rate 72 AXIS DE 130 P 33 QRSd 84 QRS 57 QT 384 T 31 QTc 421 Conclusion Sinus rhythm...normal P axis, V-rate 50- 99 Atrial premature complex...SV complex w/ short R-R interval RSR' in V1 or V2,
== END 2024-06-30 07:44 | disposition home or self-care (01) ==
LOC: DI.CARD 07:44
PROVIDERS: PCP Physician Assistant; Visit Provider Internal Medicine Cardiovascular Disease
DX: R07.9 Chest pain, unspecified (principal); I47.10 Supraventricular tachycardia, unspecified; I48.0 Paroxysmal atrial fibrillation; I10 Essential (primary) hypertension
CPT/HCPCS: 93010

== ENCOUNTER → 2024-06-30 11:10 | Outpatient (BNVA) | payer MEDICARE, SELFPAY | PROVIDERS: PCP Physician Assistant; Referring Provider Physician Assistant; Visit Provider Internal Medicine Cardiovascular Disease | DX: I47.10 Supraventricular tachycardia, unspecified (principal); R07.9 Chest pain, unspecified; I10 Essential (primary) hypertension; I48.0 Paroxysmal atrial fibrillation | CPT/HCPCS: 93005; 99214 ==

== ENCOUNTER → 2024-07-12 08:26 | Outpatient (BNVA) | payer MEDICARE, SELFPAY | PROVIDERS: PCP Physician Assistant; Referring Provider Physician Assistant; Visit Provider Urology | DX: N20.0 Calculus of kidney (principal) | CPT/HCPCS: 76775 ==

== ENCOUNTER → 2024-07-26 10:38 | Outpatient (BNVA) | payer MEDICARE, SELFPAY | PROVIDERS: PCP Physician Assistant; Referring Provider Physician Assistant; Visit Provider Physician Assistant Surgical | DX: J45.909 Unspecified asthma, uncomplicated (principal); Z91.09 Other allergy status, other than to drugs and biological substances; R93.89 Abnormal findings on diagnostic imaging of other specified body structures | CPT/HCPCS: 99214 ==

== ENCOUNTER → 2024-08-25 09:54 | Outpatient (BNVA) | payer MEDICARE, SELFPAY | PROVIDERS: PCP Physician Assistant; Referring Provider Physician Assistant; Visit Provider Internal Medicine Cardiovascular Disease | DX: I48.0 Paroxysmal atrial fibrillation (principal); I35.9 Nonrheumatic aortic valve disorder, unspecified; I10 Essential (primary) hypertension; Z79.899 Other long term (current) drug therapy; Z79.01 Long term (current) use of anticoagulants | CPT/HCPCS: 99214; 99213; 73560 ==

== ENCOUNTER 2024-08-25 13:38 | Outpatient (CLI) | payer MEDICARE, SELFPAY ==
--- NOTE | 2024-08-25 10:30 | DI.RAD_ITS ---
Exam(s) XR KNEE RT 2V AP,LAT EXAM: XR KNEE RT 2V AP,LAT CLINICAL HISTORY: fall s/p TKR. TECHNIQUE: 2D digital imaging was performed. COMPARISON: CR XR KNEE RT 2V AP,LAT from 05/16/2024 FINDINGS: Two views There is stable position alignment of the components of the right knee prosthesis. No fracture or loosening evident. No evidence of osteomyelitis. IMPRESSION: Stable satisfactory appearance. DATA REPOSITORY: RADIATION DOSE DELIVERED:
== END 2024-08-25 13:39 | disposition home or self-care (01) ==
LOC: DIORS 13:38
PROVIDERS: PCP Physician Assistant; Referring Provider Physician Assistant; Visit Provider Physician Assistant
DX: M25.561 Pain in right knee (principal); W19.XXXA Unspecified fall, initial encounter; Z96.651 Presence of right artificial knee joint
CPT/HCPCS: 99213; 73560

== ENCOUNTER 2024-10-12 19:35 | Outpatient (REF) | payer MEDICARE, SELFPAY ==
[2024-10-12 20:38] LABS: Abs Immature Grans 0.04 10^3/uL (0.0-0.06); HCT 43.6 % (36.0-46.0); HGB 14.0 g/dL (11.2-15.7); Immature Grans % 0.5 %; MCH 28.7 pg (27.0-33.0); MCHC 32.1 % (32.0-36.0); MCV 89 fL (80-95); MPV 9.4 fL (8.0-11.0); Platelet Count 310 10^3/uL (130-400); RBC 4.88 10^6/uL (3.93-5.22); RDW 13.1 % (11.7-14.6); RDW-SD 42.8 fL; WBC 7.78 10^3/uL (4.4-10.8)
[2024-10-12 20:43] LABS: Anion Gap 8.3 mmol/L (3-11); BUN 19 mg/dL (7-18); CO2 29.7 mmol/L (21.0-32.0); Calcium 9.8 mg/dL (8.5-10.1); Chloride 103 mmol/L (98-107); Estimated GFR 67.92 (mL/min/1.73m2); Glucose 103 mg/dL (74-106); Potassium 4.1 mmol/L (3.5-5.1); Sodium 141 mmol/L (136-145)
== END 2024-10-12 19:36 | disposition home or self-care (01) ==
LOC: NCHCN 19:35
PROVIDERS: PCP Physician Assistant; Visit Provider Physician Assistant
DX: Z01.818 Encounter for other preprocedural examination (principal)
CPT/HCPCS: 80048; 85025

== ENCOUNTER → 2024-10-26 14:17 | Outpatient (BNVA) | payer MEDICARE, SELFPAY | PROVIDERS: PCP Physician Assistant; Referring Provider Physician Assistant; Visit Provider Student in an Organized Health Care Education/Training Program | DX: M19.012 Primary osteoarthritis, left shoulder (principal); M75.102 Unspecified rotator cuff tear or rupture of left shoulder, not specified as traumatic; M19.011 Primary osteoarthritis, right shoulder; Z79.01 Long term (current) use of anticoagulants | CPT/HCPCS: 99214 ==

== ENCOUNTER 2024-11-07 00:38 | Outpatient (CLI) | payer MEDICARE, SELFPAY ==
--- NOTE | 2024-11-07 06:00 | DI.CT_ITS ---
Exam(s) CT UPPER EXTREMITY LT WO EXAM: CT UPPER EXTREMITY LT WO CLINICAL HISTORY: SURGICAL PLANNING,lt rotator cuff tear,arthritis lt glenohumeral joint,. TECHNIQUE: Imaging Protocol: Axial computed tomography images with coronal and sagittal reformatted images were created and reviewed. COMPARISON: No exams were available for comparison FINDINGS: Bones: There has been prior surgery seen in the proximal humerus. Bony alignment is satisfactory. No cellulitic or osteomyelitic changes are identified. At the glenohumeral joint, there is joint space narrowing, subchondral cysts, osteophytes and subchondral sclerosis. There is a large osteophyte arising from the inferior aspect of the humeral head. There is a well-circumscribed small osseous density in the anterior joint space. The acromioclavicular joint appears well maintained. Age-appropriate degenerative changes are seen in the visualized cervical and thoracic spine. Soft Tissues: The visualized lungs are clear. IMPRESSION: Marked osteoarthritis of the glenohumeral joint. RADIATION DOSE DELIVERED: 325.13mGy.cm Total DLP 325.13mGy.cm Total DLP DATA REPOSITORY: All CT scans at this facility are submitted to the National Radiology Data Registry (NRDR) Dose Index Registry (DIR) with the [employer] ([employer]). RADIATION OPTIMIZATION: All CT scans at this facility use at least one of these dose optimization techniques: automated exposure control; mA and/or kV adjustment per patient size (includes targeted exams where dose is matched to clinical indication); or iterative reconstruction.
== END 2024-11-07 00:58 ==
LOC: DI 00:38
PROVIDERS: PCP Physician Assistant; Visit Provider Student in an Organized Health Care Education/Training Program
DX: M19.012 Primary osteoarthritis, left shoulder (principal)
CPT/HCPCS: 73200

== ENCOUNTER → 2024-11-09 08:06 | Outpatient (BNVA) | payer MEDICARE, SELFPAY | PROVIDERS: PCP Physician Assistant; Referring Provider Physician Assistant; Visit Provider Student in an Organized Health Care Education/Training Program | DX: M19.012 Primary osteoarthritis, left shoulder (principal); M75.102 Unspecified rotator cuff tear or rupture of left shoulder, not specified as traumatic; M19.011 Primary osteoarthritis, right shoulder; Z79.01 Long term (current) use of anticoagulants | CPT/HCPCS: 99214 ==

== ENCOUNTER 2024-11-18 16:10 | Observation (INO) | payer MEDICARE, SELFPAY ==
[2024-11-18] VITALS (63 sets, daily range): BP systolic 76–150; BP diastolic 32–82; PULSE 74–101; RESP 10–27; TEMP 36.1–36.9; O2SAT 88–99; BMI 34.4
[2024-11-18] MEDS: Lactated Ringers 1,000 ML 30 ML IV ×2 (06:38→11:57)
--- NOTE | 2024-11-18 07:04 | W.ANESPRE ---
General Info Date of Service Date Performed: 11/18/24 Height: 5 ft 10 in Weight: 108.9 kg Body Mass Index (BMI): 34.4 Surgical Procedure: Operation Date: 11/18/24 07:40 Proposed Procedure Side Surgeon p Shoulder Reverse Total Arthroplasty, hardware removal of suture anchor Left Flip Howard MD Meds Allergies and Home Medications Allergies Allergy/AdvReac Type Severity Reaction Status Date / Time cephalexin Allergy Intermediate Hives Verified 11/18/24 06:10 COVID vaccine [id number] (6 Allergy Mild Other (See Verified 11/18/24 06:10 mos-11yrs) (Moderna) (From Comment) Moderna COVID 24-25(6m-11y)PF) prednisone Allergy Mild rash Verified 11/18/24 06:10 atorvastatin Allergy Unknown Other (See Verified 11/18/24 06:10 Comment) adhesive tape Allergy unknown Verified 11/18/24 06:10 gentamicin Allergy unknown Verified 11/18/24 06:10 hydrogen peroxide Allergy Skin Rash Verified 11/18/24 06:10 nitrofurantoin (From Allergy unknown Verified 11/18/24 06:10 Macrodantin) sulfamethoxazole (From Allergy Skin Rash Verified 11/18/24 06:10 Bactrim) trimethoprim (From Bactrim) Allergy rash Verified 11/18/24 06:10 moderna vaccine Allergy Severe Other (See Uncoded 11/18/24 06:10 Comment) methylprednisilone Allergy Mild rash Uncoded 11/18/24 06:10 Home Medication ?Medication ?Instructions ?Recorded dupilumab 300 mg/2 mL subcutaneous 300 mg (2 mL) subcut Q2W #12 mL 01/28/22 pen injector (Cemmerce) iodine 150 mcg tablet 150 mcg PO DAILY 09/11/22 polysaccharide iron complex 150 mg 150 mg PO .4 a day 09/11/22 iron capsule budesonide 0.5 mg/2 mL suspension 0.5 mg (2 mL) inhalation BID PRN 04/14/23 for nebulization Dyspnea, wheezing, illness #360 mL ondansetron HCl 4 mg tablet 4 mg PO Q8H PRN 04/14/23 albuterol sulfate 90 mcg/actuation 2 puff inhalation 4XD PRN 08/19/23 aerosol inhaler shortness of breath or wheezing #8.5 grams multivitamin with minerals-folic 1 tab PO DAILY 03/24/24 acid 80 mcg chewable tablet (Centrum Adult 50 Plus) albuterol sulfate 2.5 mg/3 mL 2.5 mg (3 mL) inhalation QID PRN 03/30/24 (0.083 %) solution for nebulization shortness of breath or wheezing #180 mL fluticasone propionate 230 2 puff inhalation BID #12 grams 06/13/24 mcg-salmeterol 21 mcg/actuation HFA inhaler (Advair HFA) paroxetine mesylate(menop.sym) 7.5 7.5 mg PO DAILY 06/29/24 mg capsule amiodarone 200 mg tablet 200 mg PO DAILY #90 tabs 06/30/24 apixaban 5 mg tablet (Eliquis) 5 mg PO BID #180 tabs 07/12/24 cetirizine 10 mg tablet (Zyrtec) 10 mg PO DAILY PRN 07/19/24 losartan 50 mg tablet 50 mg PO BID #360 tabs 07/26/24 hydrochlorothiazide 25 mg tablet 25 mg PO DAILY 10/20/24 magnesium glycinate 100 mg (as 100 mg PO DAILY PRN 11/09/24 glycinate) tablet acetaminophen 500 mg tablet 1,000 mg PO DIRECTED 11/17/24 oxycodone 10 mg tablet 10 mg PO DIRECTED PRN 11/17/24 naproxen 250 mg tablet 250 mg PO BID PRN moderate pain 11/18/24 and swelling #20 tabs oxycodone 5 mg tablet 2.5 - 5 mg (0.5 - 1 x 5 mg) PO 11/18/24 .q4-6h PRN severe pain #18 tabs Current Visit Medications: Current Medications Generic Name Dose Route Start Last Admin Trade Name Freq PRN Reason Stop Dose Admin Ringer's Solution 1,000 mls @ 30 mls/hr 11/18/24 06:00 11/18/24 06:38 IV 11/18/24 23:59 30 mls/hr INFUSION ALON Administration Cefazolin Sodium/Dextrose 2 gm in 50 mls @ 100 mls/hr 11/18/24 06:00 Ancef Duplex IVPB 11/18/24 23:59 PREOP ALON Tranexamic Acid/Sodium Chloride 1,000 mg in 100 mls @ 600 mls/hr 11/18/24 06:00 IVPB 11/18/24 23:59 PREOP ALON IV Miscellaneous Supplies 1 each 11/18/24 06:00 Iv Access IV 11/18/24 23:59 DIRECTED ALON Sodium Chloride 0 ml 11/18/24 06:00 Normal Saline Flush 10 Ml Syr IV 11/18/24 23:59 PRN PRN Sodium Chloride 0 ml 11/18/24 06:00 Normal Saline 10 Ml Vial IJ 11/18/24 23:59 DIRECTED PRN Sterile Water 0 ml 11/18/24 06:00 Water,Injection,Sterile 10 Ml Vial IJ 11/18/24 23:59 DIRECTED PRN PFSH Active Problems Active Problems: Problem Status Onset Code Arthritis of right shoulder region Acute M19.011 Left rotator cuff tear Acute M75.102 Arthritis of left glenohumeral joint Acute M19.012 Paroxysmal atrial fibrillation Acute I48.0 Pes anserinus bursitis of right knee Acute M70.51 Pulmonary nodule Acute R91.1 Quadriceps weakness Acute M62.81 Iliotibial band syndrome affecting right lower leg Acute M76.31 Trochanteric bursitis, left hip Acute M70.62 Muscle weakness of lower extremity Acute M62.81 History of total left knee replacement Acute 12/01/23 Z96.652 Asthma Chronic J45.909 Aortic valve disorder Acute I35.9 Abnormal CXR Acute R93.89 Frostbite Acute T33.90XA Low vitamin B12 level Acute R79.89 Neuropathy Acute G62.9 Tinea pedis Acute B35.3 Fatigue Acute R53.83 Muscle cramping Acute R25.2 Retention of urine Acute R33.9 Allergic rhinitis due to pollen Acute J30.1 Chest pain Acute R07.9 Cough Acute R05.9 Allergic asthma Acute J45.909 Nephrolithiasis Chronic N20.0 Environmental allergies Acute Z91.09 Medical History Medical History Osteoarthritis ADHD Pt. denies Hypomagnesemia Anemia Liver nodule Onychomycosis Vertigo Resting tremor Left pointer finger Arthralgia Prediabetes HTN (hypertension) HLD (hyperlipidemia) Hot flashes Dysuria Urinary frequency Dysfunctional voiding of urine Cholelithiasis pt. denies Disc degeneration pt denies Surgical History Surgical History History of total right knee replacement (04/06/24) Hx of hysterectomy Hx of cholecystectomy H/O detached retina repair History of arthrodesis metacarpophalangeal joint, with or without internal fixation History of ureteroscopy History of appendectomy History of lobectomy of thyroid Tobacco Smoking/Tobacco Use Status: Former Tobacco Use Passive smoking exposure: No Alcohol Alcohol Intake: never Substance Use Substance use: Never Substance use type: does not use Vital Signs and Lab Results Vital Signs Most Recent Vital Signs in EMR: Most Recent Vital Signs Temp Pulse Resp BP Pulse Ox 36.6 C 81 16 150/69 H 96 11/18/24 05:59 11/18/24 05:59 11/18/24 05:59 11/18/24 05:59 11/18/24 05:59 Imaging and Studies Imaging and Studies Study information below may be from another EMR and interpreted by another provider. Please see original notes in EMR for more complete details. Stress Test Summary: 11/14: negative stress echo. LVEF 65%, mild to moderate diastolic dysfunction. mild . Pulmonary Function Summary: 09/13: normal PFTs. Anesthesia Assessment and Plan Anesthesia History Personal History: No History of Anesthesia Complications and No History of General Anesthesia Family History: No Family History of Anesthesia Complications Exercise Tolerance Exercise Tolerance: Metabolic Equivalents<4 Pertinent Negatives Pertinent Negatives: No Symptoms of GERD, No Major Cardiovascular Symptoms or Complaints, No Major Pulmonary Symptoms or Complaints and No History of CVA/TIA Cardiac & Pulmonary Exam Cardiac Exam: Normal S1/S2 Heart Sounds Pulmonary Exam: Clear Bilateral Breath Sounds Implantable Cardiac Device Does patient have a Pacemaker or an ICD?: No Airway Exam Known Difficult Airway: No Mallampati Class: 3 Mouth Opening: Normal (> 3cm) Thyromental Distance: Greater than 3 cm Neck Range of Motion: Full ROM Neck Circumference: Normal Teeth Condition: Normal Dentition ASA Classification ASA Score: ASA 3 Emergency Case?: No NPO Status NPO Status: NPO Clears >2 hours, Solids >8 hours Anesthesia Plan Resuscitation Status: Full Code Anesthesia Technique: General Anesthesia Airway Planned: Endotracheal Tube Monitors Used: Standard Monitors and SedLine Preoperative Comments:: Discussed nerve block. Initially patient was refusing block as she did not want to be able to not feel or potentially not hazardous waste remover her surgical arm as she has had this experience before. At this time Dr. Howard walked in and patient decided after short conversation that she would now like the nerve block. We discussed hemidiaphragm paralysis, horners syndrome and expected outcomes to include being unable to move/feel surgical arm. She is now nervous about procedure but very much wants the nerve block after discussion of risks and benefits.
--- NOTE | 2024-11-18 07:06 | W.PM.DSUDISC ---
Date of service: 11/18/24 Discharge Plan Disposition Patient Disposition: Home Condition: Stable Discharge Details Attending Provider: Flip Howard Primary Care Provider: Lidia Clay Home Meds and New Rx's Prescriptions: New naproxen 250 mg tablet 250 mg PO BID PRN (Reason: moderate pain and swelling) Qty: 20 0RF Rx Instructions: take with a meal oxycodone 5 mg tablet 2.5 - 5 mg PO .q4-6h MDD 30 mg PRN (Reason: severe pain) Qty: 18 0RF Continued polysaccharide iron complex 150 mg iron capsule 150 mg PO .4 a day iodine 150 mcg tablet 150 mcg PO DAILY albuterol sulfate 90 mcg/actuation HFA aerosol inhaler 2 puff inhalation 4XD PRN (Reason: shortness of breath or wheezing) Qty: 8.5 12RF Centrum Adult 50 Plus 80 mcg tablet,chewable 1 tab PO DAILY amiodarone 200 mg tablet 200 mg PO DAILY Qty: 90 3RF ondansetron HCl 4 mg tablet 4 mg PO Q8H PRN budesonide 0.5 mg/2 mL suspension for nebulization 0.5 mg inhalation BID PRN (Reason: Dyspnea, wheezing, illness) Qty: 360 7RF Dupixent Pen 300 mg/2 mL pen injector 300 mg subcut Q2W Qty: 12 4RF albuterol sulfate 2.5 mg /3 mL (0.083 %) solution for nebulization 2.5 mg inhalation QID PRN (Reason: shortness of breath or wheezing) Qty: 180 12RF fluticasone propion-salmeterol [Advair HFA] 230-21 mcg/actuation HFA aerosol inhaler 2 puff inhalation BID Qty: 12 12RF paroxetine mesylate(menop.sym) 7.5 mg capsule 7.5 mg PO DAILY Eliquis 5 mg tablet 5 mg PO BID Qty: 180 3RF cetirizine [Zyrtec] 10 mg tablet 10 mg PO DAILY PRN losartan 50 mg tablet 50 mg PO BID Qty: 360 3RF hydrochlorothiazide 25 mg tablet 25 mg PO DAILY magnesium glycinate 100 mg tablet 100 mg PO DAILY PRN acetaminophen 500 mg tablet 1,000 mg PO DIRECTED Patient Comments: TAKE TWO TABLETS BY MOUTH EVERY 8 HOURS NEEDED FOR PAIN oxycodone 10 mg tablet 10 mg PO DIRECTED PRN Patient Comments: TAKE ONE TABLET BY MOUTH EVERY 4 HOURS NEEDED FOR PAIN MAXIMUM DAILY DOSE = 6 Discharge Instructions Additional Instructions: Surgery: Left reverse total shoulder arthroplasty (constrained liner) with removal of hardware 11/18/24 Activity: Do not lift anything heavier than a coffee. You should keep your arm at your side in a relatively neutral position at all times except for gentle range of motion exercises, physical therapy, and essential activities. You should use the sling whenever you are out of the house. At home it is best to remove the sling and rest the arm on a pillow at your side or support the operative side with your other hand. A physical therapy prescription will be sent electronically to start in about 3 weeks. Standard Reverse TSA Protocol. Prescriptions: Naproxen 250 mg take 1 every 12 hours with a meal as needed for moderate pain (use cautiously while on Eliquis) Oxycodone 5 mg take 0.5-1 every 4-6 hours as needed for severe pain You may use [id number] Tylenol (acetaminophen) as needed for mild pain. These pain medications may be taken all at once or in different combinations as needed. Also, recommend Colace (docusate) as a stool softener as surgery and pain medicine cause constipation. You may try [id number] diphenhydramine (Benadryl) 25-50 mg nightly as a sleep aid Dressings: Leave dressing in place until follow-up. Keep clean and dry at all times. No showers please. Follow-up: 10-[address] Howard You may take off the leg compression stockings this evening at home. You may also leave them on a few days longer if you have a history of leg swelling or edema. Please call the office during business hours with any questions or concerns. Let us know right away if you develop any redness, drainage, fevers, chest pain, or trouble breathing. Do not drink alcohol or drive for at least 24 hours after anesthesia. Stand Alone Forms: Anesthesia Discharge Inst., Alejandro.Nerve Block Instructions, Kena Hood ([facility]) Referrals: Flip Howard MD [ [facility] STAFF PHYSICIAN, Orthopaedic Surgical] - 11/30/24 8:45 am Discharge Orders Discharge Orders: Discharge Order (Routine); Ordered 09/26/25 Ordered By: Bhavna Lam DS: Diagnosis Discharge Diagnosis (1) Arthritis of left glenohumeral joint: Status: Acute (2) Left rotator cuff tear: Status: Acute
--- NOTE | 2024-11-18 07:24 | ROE_ITS ---
Operative Note Operative Note PRE-OP DIAGNOSIS: Left: 1. End-stage glenohumeral arthritis 2. Prior open biceps subpectoral tenodesis 3. Prior rotator cuff repair with retained hardware POST-OP DIAGNOSIS: same PROCEDURE: Left: 1. Reverse total shoulder arthroplasty, CPT # 46338 2. Removal of deep hardware from prior rotator cuff repair suture anchor and permanent suture material, CPT #59816 The press assistant and feeder was medically required as this procedure involves retraction, protection of neurovascular structures, and manipulation of multiple instruments and implants at the same time, which cannot be done without a skilled press assistant and feeder. SURGEON: Flip Howard INSPECTOR BALL POINTS: Bhavna Lam ANESTHESIA TYPE: Local By Surgeon, General LMA/ETT and Primary Nerve Block Refer to Anesthesia Record ESTIMATED BLOOD LOSS: 200 COMPLICATIONS: None Patient was transported to: PACU Patient's condition: stable Implants: [employer] modular glenoid system baseplate 24 mm +2 mm lateral [employer] modular glenoid system central post 25 mm [employer] modular glenoid system peripheral locking screws 32 mm inferior, 36 mm superior, 16 mm posterior, 16 mm anterior [employer] modular glenoid system glenosphere 36 +4 mm lateralized [employer] humeral stem 135 degrees size 8 [employer] suture cup size 36 posterior offset [employer] humeral insert size 36+6 mm constrained Indications: Please see complete medical record for details. Findings: Significant shoulder stiffness anterior and superior capsular contracture and profound glenohumeral arthritis humeral head and glenoid deformity, osteophyte formation anteriorly superiorly and large goats keating inferiorly. Prior retained suture anchor and permanent suture material anteriorly seemingly from prior subscapularis repair. Absent biceps superior to the pectoralis due to prior subpectoral tenodesis. Thickened and scarred in mobile subscapularis and supraspinatus. Procedure Description: In the operating room, general anesthesia was induced. The patient was positioned beachchair on the operating room table. All bony prominences were well-padded. Preoperative antibiotics were administered. The shoulder was prepped and draped in the usual sterile fashion for shoulder arthroplasty. The correct patient, procedure, and side of the procedure were all verified prior to incision. The deltopectoral approach was preinjected with 0.25% bupivacaine containing epinephrine and taken to the anterior shoulder. Care was taken to bluntly dissect the interval between the deltoid and pectoralis major muscles and to identify the cephalic vein within its fat stripe. The the vein was mobilized medially. Subdeltoid space and conjoined tendon were freed of adhesions. The long head of the biceps tendon was identified just lateral to the lesser tuberosity. The uppermost margin of the pectoralis major tendon was released from the proximal humerus. The bicipital groove was identified, biceps absent, was used to identify the rotator cuff interval. Significantly thickened and contracted supraspinatus was debrided to about the infraspinatus. Subscapularis tenotomy was done and then the remnant on the lesser tuberosity was removed as well as some retained permanent suture material and a permanent plastic?appearing suture anchor. Anterior and inferior capsular contracture was released taking care care was taken to avoid the axillary nerve by only working on the bone inferiorly and medially. The large goats keating osteophyte was then resected and inferior humeral neck smooth then contoured to avoid impingement. Appropriate coagulation was achieved especially interiorly. The anatomic neck was cut using an oscillating saw with the humeral head bone brought back table in case there was a need for future bone grafting. The proximal humerus was delivered from the wound with adduction and external rotation. The proximal humeral protection plate was used to provisionally confirm suture cup and glenosphere size. Reamers were started appropriately posterior to the bicipital groove taking care to maintain in line approach with the humeral canal. Sequential reaming was done from size 5 up to size 8. Next, the broaches were sequentially used to open the proximal humerus starting with a size 5 and going up to size 8 and sunk to the appropriate depth while maintaining approximately 25 degrees retroversion. There was good metaphyseal fit and rotational control of the proximal humerus with this size. The posterior offset guide was used to ream for the suture cup. Attention was then turned to the glenoid and retractors were placed and a circumferential release performed using the long head of the biceps remnant to remove soft tissue about the glenoid rim. Care was taken inferiorly to work on bone only between 5 and 7:00 o'clock and bluntly elevate tissues inferiorly. The VIP guide was placed on the glenoid and used to confirm placement and trajectory of the central guidepin. The guidepin was inserted and advanced just through the far cortex ensuring adequate central fixation length. The glenoid was prepared according to front end mechanic specifications for a standard baseplate and central post. The baseplate was impacted onto the glenoid surface. The locking guide was then used to drill and place appropriately lengthed inferior, superior, anterior, and posterior screws. The [id number] reamer was used to confirm adequate peripheral reaming. The glenosphere was applied with the electrical cad designer and then impacted to engage the Glass taper. It was then locked with appropriate countersinking of the setscrew. The glenosphere was inspected and found to have good fit, appropriate positioning, and no soft tissue or bony impingement. Attention was then turned back to the proximal humerus. The humeral trial cup was connected. Trialing was commenced with +3 mm liner. The shoulder was reduced and taken through range of motion. Trial components were built up to +6 mm liner to achieve good stability and appropriate tension on the deltoid and conjoined tension. The trial components were removed from the proximal humerus. The wound was copiously irrigated with normal saline. The the proximal humeral stem and suture cup were assembled and brought over the proximal humerus. A small amount of vancomycin powder was distributed in the proximal humerus. The humeral component and suture cup were impacted into place. The trial liner was added, and the shoulder was reduced and range of motion, stability, and tension confirmed to be appropriate. The final liner, constrained chosen due to lack of anterior and superior rotator cuff, then connected, and range of motion, stability, and tension confirmed. The large lesser tuberosity was felt to have some impingement across the body on the coracoid and conjoined tendon so it was reduced with bone resection and smoothed with the Darrach. The shoulder was copiously irrigated with Betadine and normal saline. Vancomycin powder was distributed deeply about the shoulder and through subcutaneous tissues. The deltopectoral interval was approximated with 2-0 Monocryl burying the cephalic vein. Subcutaneous tissue was irrigated then closed using 2-0 Monocryl in a buried interrupted fashion. Skin was closed using 3-0 Monocryl in a buried subcuticular fashion. Skin glue was applied to the incision. A silver impregnated bandage was placed over the incision. The extremity was placed into a shoulder immobilizer. The patient awoke from anesthesia without complication and was taken to the recovery room in stable condition. Date of Procedure: 11/18/24
[2024-11-18] MEDS: ceFAZolin 2 GM/50 ML BAG IVPB (08:15)
[2024-11-18] MEDS: TRANEXAMIC ACID/SOD. CHL. 1,000 MG/100 ML BAG 600 MG IVPB (08:19)
[2024-11-18] MEDS: Bupivacaine 0.25% Pres-Free W/EPI 30 ML VIAL (08:35)
--- NOTE | 2024-11-18 08:43 | W.ANESNERVE ---
Nerve Block Single Injection Procedure Date and Time Date Performed: 11/18/24 Procedure Start: 07:35 Location Where Procedure Performed Procedure Location: Day Surgery Unit Reason Performed: Postoperative Analgesia Requesting Provider: Flip Howard Timeout Performed Timeout Performed: Yes Monitoring Used Blood Pressure, SpO2 and See EMR for corresponding vital signs Sterility Sterility: Hand Hygiene, Surgical Cap, Surgical Mask, Sterile Gloves and Chlorhexidine Sedation Given During Procedure Sedation Given (Indicate Dose Given): Versed IV Dose:: 2mg and Precedex IV Dose:: 12mcg Patient Mental Status Patient Mental Status: Awake (Pt. asking if she was given any sedation. Was reassured she was.) Nerve Block 1st Nerve Block: Laterality: Left Block Type: Interscalene Ultrasound Image Saved?: Yes Needle / Catheter Used: 80mm SonoPlex II Local Anesthetic Bolus (Indicate Dose Given): Lidocaine used for local infiltration of skin, Bupivacaine 0.25% Dose:: 10ml and Exparel Dose:: 10ml Additives (Indicate Dose Given): None Ultrasound: Sterile probe cover and gel used Nerve Stimulator: Supplement to Ultrasound use and No twitch or parasthesia noted < 0.5 mA Paresthesia: None Procedure Tolerated: No Complications and Patient tolerated well Procedure Outcome: Successful Performed By: Elsy Crews Supervised By: Alvin Arana
[2024-11-18] MEDS: Vancomycin 1,000 MG VIAL 1000 MG (09:47)
[2024-11-18] MEDS: ePHEDrine 25 MG/5 ML Syringe IVP ×4 (10:43→11:25)
[2024-11-18] MEDS: fentaNYL 100 MCG/2 ML VIAL IVP ×3 (10:44→14:42)
[2024-11-18] MEDS: HYDROmorphone 2 MG/ML SYR IVP ×4 (11:05→21:16)
[2024-11-18] MEDS: ceFAZolin 1 GM/50 ML BAG IVPB ×2 (11:52→18:25)
[2024-11-18] MEDS: oxyCODONE 5 MG TAB PO (12:06)
--- NOTE | 2024-11-18 13:05 | DI.RAD_ITS ---
Exam(s) XR SHOULDER LT COMPLETE 2+V EXAM: XR SHOULDER LT COMPLETE 2+V INDICATION: Post-op. COMPARISON: No exams were available for comparison TECHNIQUE: 2D digital imaging was performed. Two views. Portable. FINDINGS: A total reverse shoulder prosthesis has been placed. The alignment appears satisfactory. There is residual postsurgical air in the soft tissues. DATA REPOSITORY: RADIATION DOSE DELIVERED:
[2024-11-18] MEDS: Lactobacillus Acidophilus CAP 1 CAP PO (13:06)
[2024-11-18] MEDS: Midazolam 2 MG/2 ML VIAL IVP (13:40)
--- NOTE | 2024-11-18 14:21 | W.ANESPOSTOP ---
Postoperative Evaluation Date, Time and Location Date Performed: 11/18/24 Time Performed: 14:22 Patient Location: PACU Vital Signs Most Recent Imported Vital Signs: Most Recent Vital Signs Temp Pulse Resp BP Pulse Ox 36.5 C 83 16 101/42 L 94 11/18/24 13:04 11/18/24 13:44 11/18/24 13:44 11/18/24 13:44 11/18/24 13:44 Pain Score Most Recent Pain Score: Most Recent Pain Score Pain Level 7 11/18/24 13:44 Assessment Mental Status: Arousable with meaningful communication Airway and Respiratory Function: Patent airway with normal (patient baseline) respiratory exam Cardiovascular Function: Hemodynamically Stable Hydration Status: Adequately Hydrated Nausea & Vomiting: No Nausea or Vomiting Pain: Pain is Moderate or Severe Postoperative Pain Management: Pain being addressed with medication Peripheral Nerve Block: Regional nerve block not resolved at time of post operative discharge (after assessment-unclear coverage of block)
[2024-11-18] MEDS: Acetaminophen 500 MG TAB 1000 MG PO (15:34)
[2024-11-18] MEDS: Ketorolac 15 MG/ML VIAL IVP (15:35)
--- NOTE | 2024-11-18 17:09 | W.PC.ACHO ---
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) Hx of hysterectomy Hx of cholecystectomy H/O detached retina repair History of arthrodesis History of ureteroscopy History of appendectomy History of lobectomy of thyroid Most Recent Vital Signs Temperature 36.8 C 11/18/24 16:41 Temperature Source Temporal Artery Scan 11/18/24 16:41 Pulse 82 11/18/24 16:41 Pulse Rhythm Regular 11/18/24 05:59 Pulse 87 11/18/24 12:22 Respiratory Rate 16 11/18/24 16:41 Respiratory Depth Normal 11/18/24 05:59 Blood Pressure 123/64 11/18/24 16:41 Blood Pressure Mean 83 11/18/24 16:41 Blood Pressure Position Supine 11/18/24 07:33 Pulse Oximetry 98 11/18/24 16:41 Respiratory End-tidal CO2 22 11/18/24 12:22 Oxygen Delivery Method Room Air 11/18/24 16:41 Oxygen Flow Rate 0 11/18/24 16:41 Pain Level 9 11/18/24 15:47 Comment Timeout was preformed at 0734 with SRNA; Jinny Arana CRNA, and María Schmidt RN. Patient was given 12mcg of precedex and 1mg of versed at 0734. Patient was then given an additional 1mg versed at 0736. Block started at 0742 and ended at 0747. No complications were noted after block. 11/18/24 07:33 Allergies cephalexin Allergy (Intermediate, Verified 11/18/24 06:10) Hives Unknown COVID vaccine [id number] (6 mos-11yrs) (Moderna) (From Moderna COVID -(6m-11y)PF) Allergy (Mild, Verified 11/18/24 06:10) Other (See Comment) Rash all over prednisone Allergy (Mild, Verified 11/18/24 06:10) rash itching and rash atorvastatin Allergy (Unknown, Verified 11/18/24 06:10) Other (See Comment) MUSCLE CRAMPS adhesive tape Allergy (Verified 11/18/24 06:10) unknown rash gentamicin Allergy (Verified 11/18/24 06:10) unknown Unknown hydrogen peroxide Allergy (Verified 11/18/24 06:10) Skin Rash nitrofurantoin (From Macrodantin) Allergy (Verified 11/18/24 06:10) unknown Unknown sulfamethoxazole (From Bactrim) Allergy (Verified 11/18/24 06:10) Skin Rash Unknown trimethoprim (From Bactrim) Allergy (Verified 11/18/24 06:10) rash Unknown moderna vaccine Allergy (Severe, Uncoded 11/18/24 06:10) Other (See Comment) Pt. state she had a respiratory distress response methylprednisilone Allergy (Mild, Uncoded 11/18/24 06:10) rash Active Medications Generic Name Dose Route Start Last Admin Trade Name Freq PRN Reason Stop Dose Admin Ephedrine Sulfate 0 mg 11/18/24 09:14 11/18/24 11:25 Ephedrine 25 Mg/5 Ml Syringe IVP 12/18/24 09:13 5 mg DIRECTED PRN Administration Hypotension Fentanyl 0 mcg 11/18/24 09:14 11/18/24 10:49 Fentanyl 100 Mcg/2 Ml Vial IVP 12/18/24 09:13 50 mcg DIRECTED PRN Administration Fentanyl 0 mcg 11/18/24 13:33 11/18/24 14:42 Fentanyl 100 Mcg/2 Ml Vial IVP 12/18/24 13:32 50 mcg DIRECTED PRN Administration Moderate to Severe Pain Hydromorphone HCl 0 mg 11/18/24 09:14 11/18/24 11:31 Hydromorphone 2 Mg/Ml Syr IVP 12/18/24 09:13 0.4 mg DIRECTED PRN Administration Ringer's Solution 1,000 mls @ 30 mls/hr 11/18/24 06:00 11/18/24 12:49 IV 11/18/24 23:59 30 mls/hr INFUSION ALON Infusion Cefazolin Sodium/Dextrose 2 gm in 50 mls @ 100 mls/hr 11/18/24 06:00 11/18/24 08:35 Ancef Duplex IVPB 11/18/24 23:59 Infused PREOP ALON Infusion Tranexamic Acid/Sodium Chloride 1,000 mg in 100 mls @ 600 mls/hr 11/18/24 06:00 11/18/24 08:29 IVPB 11/18/24 23:59 Infused PREOP ALON Infusion Midazolam HCl 0 mg 11/18/24 09:14 11/18/24 13:40 Midazolam 2 Mg/2 Ml Vial IVP 12/18/24 09:13 2 mg DIRECTED PRN Administration Anxiety IV IV Catheter Type [Right Peripheral IV Forearm] IV Catheter Gauge [Right 20 Forearm] Diet Orders Category Date Time Status DIET [Regular/Normal] [DIET] Nutrition 11/18/24 Dinner Active Intake and Output - 24 Hour Total 11/09/24 10:04 thru 11/18/24 16:05 Intake Total 1300 Output Total 200 Balance 1100 Weight 108.9 kg Intake: IV 1300 Output: Estimated Blood Loss 200 Other: Urine Color Pale Urine Appearance Clear Urine Odor None Emesis Description None v v v v v v v v v Sending and/or Receiving Nurses: Please use comment section below to note any information pertinent to the patient hand-off not included above. Information / Comments: Report received from: Pt had elective shoulder sugery with hardware removal. during recovery she has had immense pain requiring her to be admitted over night for pain control, VS DANG Schmitt RN
[2024-11-18] MEDS: oxyCODONE 10 MG TAB PO (17:17)
[2024-11-18] MEDS: Normal Saline Flush 10 ML SYR IV (17:30)
[2024-11-18] MEDS: Ondansetron 4 MG/2 ML VIAL IVP (17:31)
[2024-11-18] MEDS: Normal Saline 100 ML (18:25)
[2024-11-18] MEDS: Budesonide/Formoterol 160/4.5 6 GM 60 PUFF INH IH (19:52)
[2024-11-18] MEDS: diphenhydrAMINE 25 MG CAP PO (21:39)
[2024-11-19] MEDS: Acetaminophen 500 MG TAB 1000 MG PO ×2 (00:39→08:16)
[2024-11-19] MEDS: ceFAZolin 1 GM/50 ML BAG IVPB (01:40)
[2024-11-19] MEDS: HYDROmorphone 2 MG/ML SYR 0.5 MG IVP (02:07)
[2024-11-19] MEDS: oxyCODONE 10 MG TAB PO ×2 (05:30→08:29)
[2024-11-19 07:30] VITALS: BP 106/48; PULSE 87; RESP 16; TEMP 36.5; O2SAT 94
--- NOTE | 2024-11-19 07:31 | DSE_ITS ---
Date of service: 11/19/24 Time of Service: 09:00 DS: Diagnosis Discharge Diagnosis (1) Arthritis of left glenohumeral joint: Status: Acute (2) Left rotator cuff tear: Status: Acute Discharge Plan Disposition Patient Disposition: Home Condition: Stable Discharge Details Reason For Visit: left shoulder arthritis Admit Date/Time: 11/18/24 16:10 Admit Provider: Flip Howard Attending Provider: Flip Howard Primary Care Provider: Lidia Clay Hospital Course Hospital Course: Patient was admitted to the medical/surgical floor following the procedure. The surgery was tolerated well without any notable medical, surgical, or anesthetic complications. Mobilization began postoperatively. She was voiding spontaneously. Vitals were stable. No acute medical issues. Pain was controlled on oral regimen. Home Meds and New Rx's Prescriptions: New naproxen 250 mg tablet 250 mg PO BID PRN (Reason: moderate pain and swelling) Qty: 20 0RF Rx Instructions: take with a meal oxycodone 5 mg tablet 2.5 - 5 mg PO .q4-6h MDD 30 mg PRN (Reason: severe pain) Qty: 18 0RF Continued polysaccharide iron complex 150 mg iron capsule 150 mg PO .4 a day iodine 150 mcg tablet 150 mcg PO DAILY albuterol sulfate 90 mcg/actuation HFA aerosol inhaler 2 puff inhalation 4XD PRN (Reason: shortness of breath or wheezing) Qty: 8.5 12RF Centrum Adult 50 Plus 80 mcg tablet,chewable 1 tab PO DAILY amiodarone 200 mg tablet 200 mg PO DAILY Qty: 90 3RF ondansetron HCl 4 mg tablet 4 mg PO Q8H PRN budesonide 0.5 mg/2 mL suspension for nebulization 0.5 mg inhalation BID PRN (Reason: Dyspnea, wheezing, illness) Qty: 360 7RF Dupixent Pen 300 mg/2 mL pen injector 300 mg subcut Q2W Qty: 12 4RF albuterol sulfate 2.5 mg /3 mL (0.083 %) solution for nebulization 2.5 mg inhalation QID PRN (Reason: shortness of breath or wheezing) Qty: 180 12RF fluticasone propion-salmeterol [Advair HFA] 230-21 mcg/actuation HFA aerosol inhaler 2 puff inhalation BID Qty: 12 12RF paroxetine mesylate(menop.sym) 7.5 mg capsule 7.5 mg PO DAILY Eliquis 5 mg tablet 5 mg PO BID Qty: 180 3RF cetirizine [Zyrtec] 10 mg tablet 10 mg PO DAILY PRN losartan 50 mg tablet 50 mg PO BID Qty: 360 3RF hydrochlorothiazide 25 mg tablet 25 mg PO DAILY magnesium glycinate 100 mg tablet 100 mg PO DAILY PRN acetaminophen 500 mg tablet 1,000 mg PO DIRECTED Patient Comments: TAKE TWO TABLETS BY MOUTH EVERY 8 HOURS NEEDED FOR PAIN oxycodone 10 mg tablet 10 mg PO DIRECTED PRN Patient Comments: TAKE ONE TABLET BY MOUTH EVERY 4 HOURS NEEDED FOR PAIN MAXIMUM DAILY DOSE = 6 Discharge Instructions Additional Instructions: Surgery: Left reverse total shoulder arthroplasty (constrained liner) with removal of hardware 11/18/24 Activity: Do not lift anything heavier than a coffee. You should keep your arm at your side in a relatively neutral position at all times except for gentle range of motion exercises, physical therapy, and essential activities. You should use the sling whenever you are out of the house. At home it is best to remove the sling and rest the arm on a pillow at your side or support the operative side with your other hand. A physical therapy prescription will be sent electronically to start in about 3 weeks. Standard Reverse TSA Protocol. Prescriptions: Naproxen 250 mg take 1 every 12 hours with a meal as needed for moderate pain (use cautiously while on Eliquis) Oxycodone 5 mg take 0.5-1 every 4-6 hours as needed for severe pain You may use [id number] Tylenol (acetaminophen) as needed for mild pain. These pain medications may be taken all at once or in different combinations as needed. Also, recommend Colace (docusate) as a stool softener as surgery and pain medicine cause constipation. You may try [id number] diphenhydramine (Benadryl) 25-50 mg nightly as a sleep aid Dressings: Leave dressing in place until follow-up. Keep clean and dry at all times. No showers please. Follow-up: 10-[address] Howard You may take off the leg compression stockings this evening at home. You may also leave them on a few days longer if you have a history of leg swelling or edema. Please call the office during business hours with any questions or concerns. Let us know right away if you develop any redness, drainage, fevers, chest pain, or trouble breathing. Do not drink alcohol or drive for at least 24 hours after anesthesia. Stand Alone Forms: Anesthesia Discharge Inst., Anes.Nerve Block Instructions, Kena Hood ([facility]U) Referrals: Flip Howard MD [ [facility] STAFF PHYSICIAN, Orthopaedic Surgical] - 11/30/24 8:45 am Activity:: Gentle pedulum Equipment/Supplies:: Sling Diet:: As Tolerated Discharge Orders Discharge Orders: Discharge Order (Routine); Ordered 11/19/24 Ordered By: Shai Story Discharge Data Discharge Date/Time-TO BE ENTERED AT DEPARTURE: 11/19/24 09:16 DS: Summary Time Spent with Patient providing and/or coordinating discharge services: Greater than 30 minutes Status at Discharge Functional status at discharge: independent ambulation Overall status at discharge: patient is progressing back to baseline Mental Status: mental status grossly normal Speech and Movement: speech and movement normal Mood: congruent mood Affect: normal affect Exam Narrative Exam Narrative: Sitting up in the chair. NAD. AAOx3. Left shoulder dressing c/d/i. Ecchymosis around the medial upper arm. Soft and compressible. SILT M/R/U +WE/WF/EPL/FPL Psych Mental Status: mental status grossly normal Speech and Movement: speech and movement normal Mood: congruent mood Affect: normal affect DS: Data Vitals/I&O Vitals and I&O: Vital Signs Temperature 97.5 F L 11/18/24 15:47 Temperature Source Skin 11/18/24 07:33 Pulse 101 H 11/18/24 15:47 Pulse Rhythm Regular 11/18/24 05:59 Pulse 87 11/18/24 12:22 Respiratory Rate 19 11/18/24 15:47 Respiratory Depth Normal 11/18/24 05:59 Blood Pressure 131/79 11/18/24 15:47 Blood Pressure Mean 69 11/18/24 12:22 Blood Pressure Position Supine 11/18/24 07:33 Pulse Oximetry 94 11/18/24 15:47 Respiratory End-tidal CO2 22 11/18/24 12:22 Oxygen Delivery Method Room Air 11/18/24 15:47 Oxygen Flow Rate 2 11/18/24 14:44 Pain Level 9 11/18/24 15:47 Comment Timeout was preformed at 0734 with SRNA; Jinny Arana CRNA, and María Schmidt RN. Patient was given 12mcg of precedex and 1mg of versed at 0734. Patient was then given an additional 1mg versed at 0736. Block started at 0742 and ended at 0747. No complications were noted after block. 11/18/24 07:33 Intake & Output 11/17/24 11/18/24 11/18/24 23:59 11:59 23:59 Intake Total 1100 / 1300 200 / 1300 Output Total 200 / 200 Balance 900 / 1100 200 / 1100 Weight 240 lb 1.334 oz Intake: IV 1100 / 1300 200 / 1300 Output: Estimated Blood Loss 200 / 200 Other: Urine Color Pale Urine Appearance Clear Urine Odor None Emesis Description None None PFSH All Active Problems Arthritis of right shoulder region (Acute) Left rotator cuff tear (Acute) Arthritis of left glenohumeral joint (Acute) s/p Left reverse total shoulder arthroplasty (constrained liner) with removal of hardware 11/18/24 Paroxysmal atrial fibrillation (Acute) Pes anserinus bursitis of right knee (Acute) Pulmonary nodule (Acute) Quadriceps weakness (Acute) Iliotibial band syndrome affecting right lower leg (Acute) DEPO MEDROL 01/07/24 Trochanteric bursitis, left hip (Acute) Muscle weakness of lower extremity (Acute) History of total left knee replacement (Acute 12/01/23) Asthma (Chronic) Aortic valve disorder (Acute) Abnormal CXR (Acute) Frostbite (Acute) Low vitamin B12 level (Acute) Neuropathy (Acute) Tinea pedis (Acute) Fatigue (Acute) Muscle cramping (Acute) Retention of urine (Acute) Allergic rhinitis due to pollen (Acute) Chest pain (Acute) Cough (Acute) Allergic asthma (Acute) Nephrolithiasis (Chronic) Environmental allergies (Acute) Medical History Osteoarthritis ADHD Pt. denies Hypomagnesemia Anemia Liver nodule Onychomycosis Vertigo Resting tremor Left pointer finger Arthralgia Prediabetes HTN (hypertension) HLD (hyperlipidemia) Hot flashes Dysuria Urinary frequency Dysfunctional voiding of urine Cholelithiasis pt. denies Disc degeneration pt denies Surgical History History of total right knee replacement (04/06/24) Hx of hysterectomy Hx of cholecystectomy H/O detached retina repair History of arthrodesis metacarpophalangeal joint, with or without internal fixation History of ureteroscopy History of appendectomy History of lobectomy of thyroid Family History Mother Stroke DUE TO HIGH BLOOD PRESSURE Other Hx of malignant neoplasm Parkinson disease Social History Smoking/Tobacco Use Status: Former Tobacco Use Quit Date: 02/23/79 Smoking risk assessment performed?: Yes Alcohol Intake: never Drug use: Never Substance use type: does not use Housing: house Additional Social history: [facility] Time Spent with Patient Time Spent with Patient: <45 minutes Time was spent: preparing to see the patient(eg.review tests), obtaining and/or reviewing separately otained hiistory, referring, communicating with other health healthcare advisory services manager and counseling the patient
[2024-11-19] MEDS: Budesonide/Formoterol 160/4.5 6 GM 60 PUFF INH IH (08:06)
[2024-11-19] MEDS: Apixaban 5 MG TAB PO (08:16)
[2024-11-19] MEDS: Losartan 50 MG TAB PO (08:16)
[2024-11-19] MEDS: Docusate Sodium 100 MG CAP PO (08:16)
[2024-11-19] MEDS: Amiodarone 200 MG TAB PO (08:16)
[2024-11-19] MEDS: hydroCHLOROthiazide 25 MG TAB PO (08:17)
--- NOTE | 2024-11-19 09:04 | CMDISCH_ITS ---
Date of service: 11/19/24 Time of Service: 09:04 LACE Index Scoring Tool Questions: Length of Stay (in days): 1 Was the patient admitted via the E.D.?: No E.D. Visits: 0 Answers: Total Score: 1 Risk of Readmission: Low Risk Care Management Discharge Plan Reason for Hospitalization: Left shoulder arthritis Discharge Plan: Miroslava will be discharged home today with PT to start in 3 weeks. It is recommended that Miroslava will follow up with her community providers and continue per her discharge plan of care. She will transport via private vehicle. Patient/Family Education Needs: Review of discharge instructions activity, limi tations, and plan of care. Discuss ask me three. Services Needed at Discharge: Outpatient Therapy
== END 2024-11-19 10:00 | disposition home or self-care (01) ==
LOC: SUR 16:36 → MS 16:36
PROVIDERS: Admitting Provider Student in an Organized Health Care Education/Training Program; PCP Physician Assistant; Visit Provider Student in an Organized Health Care Education/Training Program
PROC: (CPT 23472; principal; 2024-11-18 07:30)
DX: M19.012 Primary osteoarthritis, left shoulder (principal); M75.102 Unspecified rotator cuff tear or rupture of left shoulder, not specified as traumatic; G89.18 Other acute postprocedural pain; M25.512 Pain in left shoulder; I48.0 Paroxysmal atrial fibrillation; R91.1 Solitary pulmonary nodule; J45.909 Unspecified asthma, uncomplicated; I35.9 Nonrheumatic aortic valve disorder, unspecified; E53.8 Deficiency of other specified B group vitamins; G62.9 Polyneuropathy, unspecified; D64.9 Anemia, unspecified; R73.03 Prediabetes; I10 Essential (primary) hypertension; E78.5 Hyperlipidemia, unspecified; R30.0 Dysuria; Z79.899 Other long term (current) drug therapy
CPT/HCPCS: 23472; 20680; C1713; 64415; 94640; 73030; 94664; G0378; J0131; J0665; J0666; J0690; J1100; J1171; J1885; J2250; J2371; J2405; J2704; J3010; J3373

== ENCOUNTER 2024-11-30 11:24 | Outpatient (CLI) | payer MEDICARE, SELFPAY ==
--- NOTE | 2024-11-30 08:30 | DI.RAD_ITS ---
Exam(s) XR SHOULDER LT COMPLETE 2+V EXAM: XR SHOULDER LT COMPLETE 2+V CLINICAL HISTORY: F/U LEFT RTSA. TECHNIQUE: 2D digital imaging was performed. COMPARISON: CR XR SHOULDER LT COMPLETE 2+V from 11/18/2024 FINDINGS: Two views Stable position alignment the components of the recently placed reverse prosthesis. No fracture or loosening evident. No significant residual soft tissue air. IMPRESSION: Satisfactory stable appearance DATA REPOSITORY: RADIATION DOSE DELIVERED:
--- NOTE | 2024-11-30 09:00 | DI.RAD_ITS ---
Exam(s) XR SHOULDER RT COMPLETE 2+V EXAM: XR SHOULDER RT COMPLETE 2+V CLINICAL HISTORY: right shoulder pain. TECHNIQUE: 2D digital imaging was performed. COMPARISON: CR XR SHOULDER LT COMPLETE 2+V from 11/30/2024 FINDINGS: Two views No evidence of fracture or dislocation nor soft tissue calcifications in the subacromial space. There are moderate-advanced degenerative changes in the glenohumeral joint. There is joint space narrowing. There is also a keating-type osteophyte on the inferior articular surface of the humeral head. On the axial image there are calcific densities noted anteriorly. There are moderate degenerative changes in the AC joint. Clavicle unremarkable. Coracoid process appears unremarkable. IMPRESSION: Moderate-advanced degenerative changes in the glenohumeral joint of the right shoulder. There are also calcific density seen anteriorly which are probably intra-articular. DATA REPOSITORY: RADIATION DOSE DELIVERED:
== END 2024-11-30 11:25 | disposition home or self-care (01) ==
LOC: DIORS 11:25
PROVIDERS: PCP Physician Assistant; Visit Provider Physician Assistant
DX: M19.011 Primary osteoarthritis, right shoulder (principal)
CPT/HCPCS: 20611; 73030

== ENCOUNTER → 2024-12-01 14:11 | Outpatient (BNVA) | payer MEDICARE, SELFPAY | PROVIDERS: PCP Physician Assistant; Referring Provider Physician Assistant; Visit Provider Physician Assistant | DX: M19.011 Primary osteoarthritis, right shoulder (principal) | CPT/HCPCS: 20611; J1010 ==